=== PATIENT | male | born 1945 | race Caucasian/White ===

== ENCOUNTER → 2017-01-17 | Outpatient (CLI) | payer MEDICARE ==
[~2017-01-17] VITALS: Ht 180.3 cm; Wt 109.3 kg
[~2017-01-17] MED LIST: ASPI1TAB PO; LISI20TA PO; MULT1TAB10 PO; NS 1,000 ML IV ONE; PROPOFOL 200 MG/20 ML VIAL As Ordered ONE; SIMV20TA2 PO
--- NOTE | 2017-01-17 12:35 | ROOR ---
Patient Name: Juan Diaz Procedure Date: 01/17/2017 12:02 PM Date of : 1945 Age: 71 Room: [facility] Gender: Male Note Status: Finalized Procedure: Colonoscopy Indications: Screening for colorectal malignant neoplasm Providers: Jimy Pino Jr, MD Referring MD: Mari Aguirre NP Requesting Provider: Medicines: Propofol per Anesthesia Complications: No immediate complications. Procedure: Pre-Anesthesia Assessment: - Prior to the procedure, a History and Physical was performed, and patient medications and allergies were reviewed. The patient is competent. The risks and benefits of the procedure and the sedation options and risks were discussed with the patient. All questions were answered and informed consent was obtained. Patient identification and proposed procedure were verified by the physician and the nurse in the pre-procedure area and in the procedure room. Mental Status Examination: alert and oriented. Airway Examination: normal oropharyngeal airway and neck mobility. Respiratory Examination: clear to auscultation. CV Examination: normal. ASA Grade Assessment: II - A patient with mild systemic disease. After reviewing the risks and benefits, the patient was deemed in satisfactory condition to undergo the procedure. The anesthesia plan was to use moderate sedation / analgesia (conscious sedation). Immediately prior to administration of medications, the patient was re-assessed for adequacy to receive sedatives. The heart rate, respiratory rate, oxygen saturations, blood pressure, adequacy of pulmonary ventilation, and response to care were monitored throughout the procedure. The physical status of the patient was re-assessed after the procedure. The Colonoscope was introduced through the anus and advanced to the cecum, identified by appendiceal orifice and ileocecal valve. The colonoscopy was performed without difficulty. The patient tolerated the procedure well. The quality of the bowel preparation was adequate and good. Findings: The perianal and digital rectal examinations were normal. Pertinent negatives include normal sphincter tone, no palpable rectal lesions and no anal lesion or abnormality was detected. The rectum, recto-sigmoid colon, sigmoid colon, descending colon, transverse colon, ascending colon and ileocecal valve appeared normal. The sigmoid colon, descending colon, transverse colon and ascending colon revealed moderately excessive looping. Impression: - The rectum, recto-sigmoid colon, sigmoid colon, descending colon, transverse colon, ascending colon and ileocecal valve are normal. - There was significant looping of the colon. - No specimens collected. Recommendation: - Discharge patient to home (ambulatory). - Repeat colonoscopy in 10 years for screening purposes. Jimy Pino MD Jimy Pino Jr, MD 01/17/2017 12:34:53 PM This report has been signed electronically. Number of Addenda: 0 Note Initiated On: 01/17/2017 12:02 PM Estimated Blood Loss: Estimated blood loss: none.
[2017-01-17 12:55] VITALS: BP 157/86
== END | disposition home or self-care (01) ==
LOC: M OPP 10:49
PROVIDERS: ATTEND Surgery
DX: Z12.11 Encounter for screening for malignant neoplasm of colon (principal); Z86.010 Personal history of colon polyps; Q43.8 Other specified congenital malformations of intestine; I10 Essential (primary) hypertension; E78.00 Pure hypercholesterolemia, unspecified; R06.83 Snoring; Z79.82 Long term (current) use of aspirin; Z79.899 Other long term (current) drug therapy; Z88.5 Allergy status to narcotic agent

== ENCOUNTER → 2017-11-19 | Outpatient (REF) | payer MEDICARE ==
[2017-11-19 20:37] LABS: LIPASE 298 U/L (73-393)
[2017-11-19 20:37] LABS: AMYLASE 92 U/L (25-115)
== END ==
LOC: M LAB REF 19:04
DX: R10.11 Right upper quadrant pain (principal)
CPT/HCPCS: 82150

== ENCOUNTER 2017-12-08 15:53 | Inpatient (IN) | payer MEDICARE ==
[2017-12-08 17:22] LABS: BASO # 0.1 10^3/uL (0.0-0.2); BASO % 0.4 % (0.0-1.0); EOS # 0.1 10^3/uL (0.0-0.50); EOS % 0.5 % (0.0-3.0); HEMATOCRIT 44.3 % (42.0-52.0); HEMOGLOBIN 15.2 g/dl (13.5-17.5); IMMATURE GRANULOCYTE % 0.4 % (0-3.0); LYMPH % 8.1 % (24.0-44.0); MEAN CORPUSCULAR HEMOGLOBIN 31.7 pg (27.0-33.0); MEAN CORPUSCULAR HGB CONC 34.3 g/dl (32.0-36.5); MEAN CORPUSCULAR VOLUME 92.5 fl (80.0-96.0); MONO # 0.7 10^3/uL (0.0-0.8); NEUTROPHILS # 9.9 10^3/uL (1.8-7.7); NEUTROPHILS % 84.6 % (36.0-66.0); PLATELET COUNT, AUTOMATED 118 10^3/uL (150-450); RED BLOOD COUNT 4.79 10^6/uL (4.30-6.10); RED CELL DISTRIBUTION WIDTH 12.1 % (11.5-14.5); WHITE BLOOD COUNT 11.7 10^3/uL (4.0-10.0)
[2017-12-08 17:29] LABS: INR 1.05; PROTHROMBIN TIME 13.8 SECONDS (12.4-14.5)
[2017-12-08 17:36] LABS: ALBUMIN 3.8 GM/DL (3.2-5.2); ALBUMIN/GLOBULIN RATIO 1.19 (1.00-1.93); ALKALINE PHOSPHATASE 72 U/L (45-117); ALT/SGPT 36 U/L (12-78); ANION GAP 6 MEQ/L (8-16); AST/SGOT 22 U/L (7-37); BILIRUBIN,DIRECT 0.3 MG/DL (0.0-0.2); BILIRUBIN,TOTAL 1.5 MG/DL (0.2-1.0); BLOOD UREA NITROGEN 31 MG/DL (7-18); CALCIUM LEVEL 9.7 MG/DL (8.8-10.2); CARBON DIOXIDE LEVEL 26 MEQ/L (21-32); CHLORIDE LEVEL 111 MEQ/L (98-107); GLOMERULAR FILTRATION RATE > 60.0 (>42); GLUCOSE, FASTING 111 MG/DL (70-100); LIPASE 901 U/L (73-393); POTASSIUM SERUM 4.8 MEQ/L (3.5-5.1); SODIUM LEVEL 143 MEQ/L (136-145)
[2017-12-08] MEDS: KETOROLAC 30 MG/ML VIAL (J1885) IV (18:58)
[2017-12-08 19:31] LABS: APPEARANCE, URINE CLEAR (CLEAR); BACTERIA, URINE AUTO NEGATIVE (NEGATIVE); BILIRUBIN, URINE AUTO NEGATIVE (NEGATIVE); BLOOD, URINE BLOOD NEGATIVE (NEGATIVE); COLOR, URINE YELLOW (YELLOW); GLUCOSE, URINE (UA) AUTO NEGATIVE (NEGATIVE); KETONE, URINE AUTO TRACE mg/dL (NEGATIVE); LEUKOCYTE ESTERASE, URINE AUTO NEGATIVE (NEGATIVE); MUCUS, URINE SMALL (NEGATIVE); NITRITE, URINE AUTO NEGATIVE (NEGATIVE); PROTEIN, URINE AUTO NEGATIVE (NEGATIVE); RBC, URINE AUTO 2 /HPF (0-3); SPECIFIC GRAVITY URINE AUTO 1.021 (1.002-1.035); SQUAMOUS EPITHELIAL CELL UR AU 0 /HPF (0-6); WBC, URINE AUTO 1 /HPF (0-3)
[2017-12-08] MEDS: PIPERACILLIN/TAZOBACTAM SOD 3.375 GM in D5W MINI-BAG PLUS 50 ML IV (20:21)
[2017-12-08] MEDS: NS 1,000 ML IV ×2 (20:21→23:30)
[2017-12-08] MEDS ORDERED: PHENYLephrine HCL 500 MCG/5 ML (100MCG/ML) SYRINGE (J2370) As Ordered (21:13)
[2017-12-08] MEDS ORDERED: NEOSTIGMINE 10 MG/10 ML VIAL (J2710) As Ordered (21:13)
[2017-12-08] MEDS ORDERED: METOCLOPRAMIDE INJ 10MG/2ML VIAL (J2765) As Ordered (21:13)
[2017-12-08] MEDS ORDERED: LIDOCAINE 2% INJ 100 MG/5 ML SDV (FOR ANES.) As Ordered (21:13)
[2017-12-08] MEDS ORDERED: MIDAZOLAM INJ 2 MG/2 ML VIAL (J2250) As Ordered (21:13)
[2017-12-08] MEDS ORDERED: fentaNYL 100 MCG/2 ML INJECTION (J3010) As Ordered ×3 (21:13→22:17)
[2017-12-08] MEDS ORDERED: PROPOFOL 200 MG/20 ML VIAL As Ordered (21:13)
[2017-12-08] MEDS ORDERED: dexameTHASONE 4 MG/ML 1ML VIAL (J1100) As Ordered (21:13)
[2017-12-08] MEDS ORDERED: DESFLURANE 240 ML INHALANT As Ordered (21:13)
[2017-12-08] MEDS ORDERED: ONDANSETRON 4MG/2ML VIAL (J2405) As Ordered (21:13)
[2017-12-08] MEDS ORDERED: GLYCOPYRROLATE INJ 0.2 MG/ML 2 ML VIAL As Ordered (21:13)
[2017-12-08] MEDS ORDERED: SUCCINYLCHOLINE 100 MG/5 ML SYRINGE (J0330) As Ordered (21:13)
[2017-12-08] MEDS ORDERED: ROCURONIUM BROMIDE 50 MG/5 ML VIAL As Ordered (21:13)
[2017-12-08] MEDS: BUPIVACAINE/EPIN 0.5% 30 ML VIAL As Ordered (21:19)
[2017-12-08] MEDS: fentaNYL 100 MCG/2 ML INJECTION (J3010) IV ×4 (22:20→22:35)
[2017-12-08] MEDS ORDERED: PROMETHAZINE INJ 25 MG/ML VIAL (J2550) IV (22:30)
[2017-12-08] MEDS ORDERED: ONDANSETRON 4MG/2ML VIAL (J2405) IV ×2 (22:30→22:45)
[2017-12-08] MEDS ORDERED: METOCLOPRAMIDE INJ 10MG/2ML VIAL (J2765) IV (22:30)
[2017-12-08] MEDS ORDERED: KETOROLAC 30 MG/ML VIAL (J1885) IV (22:30)
[2017-12-08] MEDS ORDERED: MORPHINE 4 MG/ML 1ML VIAL/SYRINGE (J2270) IV ×2 (22:30)
[2017-12-08] MEDS ORDERED: PERCOCET 5MG/325MG TAB PO ×2 (22:30)
[2017-12-08] MEDS: MORPHINE 10 MG/ML 1ML VIAL (J2270) IV ×2 (22:40→22:45)
[2017-12-08] MEDS ORDERED: LR 1,000 ML IV (22:45)
[2017-12-08] MEDS ORDERED: NORCO, ANEXSIA 5/325MG TABLET (HYDROcodone/ACETAMINOPHEN) As Ordered (22:48)
[2017-12-08] MEDS: NORCO, ANEXSIA 5/325MG TABLET (HYDROcodone/ACETAMINOPHEN) PO (22:55)
[2017-12-09] MEDS: PIPERACILLIN/TAZOBACTAM SOD 3.375 GM in D5W MINI-BAG PLUS 50 ML IV ×2 (01:48→07:50)
[2017-12-09] MEDS ORDERED: AUGMENTIN 500 MG TAB PO ×2 (09:00→21:00)
[2017-12-09] MEDS: SENOKOT S TAB PO (09:30)
[2017-12-09] MEDS: NS 1,000 ML IV (09:30)
[2017-12-09] MEDS: PANTOPRAZOLE 40MG INJ (PROTONIX) (C9113) IV (09:30)
[2017-12-13] MEDS ORDERED: IBUPROFEN 600 MG TAB PO (22:30)
== END 2017-12-09 12:20 | disposition home or self-care (01) | DRG 343 ==
LOC: M PED 23:25 → M OR 23:25 → M ED 15:53 → M RR INP 22:18 → M ED 20:35 → M PED 23:25 → M ED 20:35 → M SDC 20:00 → M OR 22:18
PROC: 0DBJ4ZZ Excision of Appendix, Percutaneous Endoscopic Approach (ICD-10-PCS; principal; 2017-12-08 20:19)
DX: K37 Unspecified appendicitis (principal); E78.00 Pure hypercholesterolemia, unspecified; I10 Essential (primary) hypertension

== ENCOUNTER 2018-11-01 18:38 | Emergency (ER) | payer MEDICARE ==
[~2018-11-01] VITALS: Ht 180.3 cm; Wt 115.2 kg
[~2018-11-01 18:38] MED LIST changes: +AMOX500T2 PO; -ASPI1TAB PO; +ASPI81TA26 PO; +IBUP-1022 PO; -NS 1,000 ML IV ONE; +PERCOCET PO; -PROPOFOL 200 MG/20 ML VIAL As Ordered ONE; +VITMTA PO
[2018-11-01 18:59] LABS: BASO % 0.3 % (0.0-1.0); EOS % 0.1 % (0.0-3.0); HEMATOCRIT 45.8 % (42.0-52.0); HEMOGLOBIN 15.8 g/dl (13.5-17.5); LYMPH # 0.6 10^3/uL (1.5-4.5); LYMPH % 4.8 % (24.0-44.0); MEAN CORPUSCULAR HEMOGLOBIN 32.4 pg (27.0-33.0); MEAN CORPUSCULAR HGB CONC 34.5 g/dl (32.0-36.5); MONO # 0.3 10^3/uL (0.0-0.8); MONO % 2.3 % (0.0-5.0); NEUTROPHILS # 11.2 10^3/uL (1.8-7.7); NEUTROPHILS % 91.9 % (36.0-66.0); PLATELET COUNT, AUTOMATED 141 10^3/uL (150-450); RED BLOOD COUNT 4.87 10^6/uL (4.30-6.10); WHITE BLOOD COUNT 12.2 10^3/uL (4.0-10.0)
[2018-11-01] MEDS ORDERED: hydrALAZINE INJ 20 MG/ML VIAL As Ordered ONE (19:08)
[2018-11-01 19:10] VITALS: BP 211/100
--- NOTE | 2018-11-01 19:10 | REPVR ---
EXAM: CT Head Without Contrast EXAM DATE/TIME: 11/01/2018 6:45 PM CLINICAL HISTORY: 73 years old, male; Injury or trauma and signs and symptoms; Injury history: Unknown; Initial encounter; Blunt trauma (contusions or hematomas); Other: R/ o CVA; Additional info: R/O CVA TECHNIQUE: Imaging protocol: Axial computed tomography images of the head/brain without contrast. Radiation optimization: All CT scans at this facility use at least one of these dose optimization techniques: automated exposure control; mA and/or kV adjustment per patient size (includes targeted exams where dose is matched to clinical indication); or iterative reconstruction. COMPARISON: No relevant prior studies available. FINDINGS: Brain: There is an acute right basal ganglia hemorrhage measuring 4.2 x 1.8 cm. This is within the right putamen. There is a rim of surrounding edema. There is no midline shift. There is white matter lucency indicating chronic microvascular disease. No acute infarct. Ventricles: Normal. No ventriculomegaly. Bones/joints: Unremarkable. No acute fracture. Sinuses: Visualized sinuses are unremarkable. No acute sinusitis. Mastoid air cells: Visualized mastoid air cells are unremarkable. No mastoid effusion. Soft tissues: Unremarkable. Vasculature: There are carotid artery calcifications. IMPRESSION: 4.2 x 1.8 cm acute right ganglia hemorrhage. Electronically signed by: Roni Masterson On 11/01/2018 19:10:23 PM
[2018-11-01] MEDS ORDERED: hydrALAZINE INJ 20 MG/ML VIAL IV ONE (19:15)
[2018-11-01] MEDS ORDERED: niCARdipine IV 40 MG in APPROPRIATE DILUENT 1 EA IV SCH (19:30)
--- NOTE | 2018-11-01 19:32 | REPVR ---
EXAM: CT Cervical Spine Without Contrast EXAM DATE/TIME: 11/01/2018 6:45 PM CLINICAL HISTORY: 73 years old, male; Injury or trauma; Fall; Initial encounter; Blunt trauma TECHNIQUE: Imaging protocol: Axial computed tomography images of the cervical spine without intravenous contrast. Coronal and sagittal reformatted images were created and reviewed. Radiation optimization: All CT scans at this facility use at least one of these dose optimization techniques: automated exposure control; mA and/or kV adjustment per patient size (includes targeted exams where dose is matched to clinical indication); or iterative reconstruction. COMPARISON: No relevant prior studies available. FINDINGS: Vertebrae: There is no fracture. Vertebral alignment is normal. Discs/Spinal canal/Neural foramina: There is multilevel spondylosis and disc space narrowing throughout the cervical spine. There are posterior osteophytes and disc bulges resulting in mild segmental central spinal stenosis from C3-C4 to C6-C7. There is multilevel foraminal stenosis at the same levels. Soft tissues: Unremarkable. Lungs: Lung apices are normal. IMPRESSION: 1. No fracture. 2. Degenerative changes with segmental central spinal stenosis and foraminal stenosis from C3-C4 to C6-C7. Electronically signed by: Roni Masterson On 11/01/2018 19:31:46 PM
[2018-11-01 19:34] LABS: BLOOD UREA NITROGEN 24 MG/DL (7-18); CALCIUM LEVEL 9.6 MG/DL (8.8-10.2); CARBON DIOXIDE LEVEL 27 MEQ/L (21-32); CHLORIDE LEVEL 108 MEQ/L (98-107); CPK CREATINE PHOSPHOKINASE 162 U/L (39-308); CREATININE FOR GFR 1.11 MG/DL (0.70-1.30); GLOMERULAR FILTRATION RATE > 60.0 (>42); GLUCOSE, FASTING 159 MG/DL (70-100); MB/CK RELATIVE INDEX 2.16 (< OR =4); POTASSIUM SERUM 4.3 MEQ/L (3.5-5.1); SODIUM LEVEL 143 MEQ/L (136-145); TROPONIN I 0.03 NG/ML (< 0.10)
[2018-11-01 20:00] LABS: INR 1.1; PROTHROMBIN TIME 14.3 SECONDS (12.1-14.4)
[2018-11-01 20:01] LABS: PARTIAL THROMBOPLASTIN TIME 28.1 SECONDS (25.4-37.6)
[2018-11-01 20:05] VITALS: BP 197/86
--- NOTE | 2018-11-02 07:24 | ECGEPIP ---
Stationary ECG Study [facility] - ED Test Date: 2018-11-01 Pat Name: SONU SIM Department: Room: - Gender: M [employer] Management Consultant: SULMA : 1945 Requested By: JOSI Vela Order Number: [id number] Reading MD: Bertin Nguyen Measurements Intervals [place] Rate: 73 P: 51 PA: 162 QRS: -21 QRSD: 90 T: 74 QT: 383 QTc: 425 Interpretive Statements SINUS RHYTHM WITH OCCASIONAL SUPRAVENTRICULAR PREMATURE COMPLEXES BASELINE ARTIFACT AFFECTS INTERPRETATION POOR R WAVE PROGRESSION BORDERLINE LEFT AXIS DEVIATION NONSPECIFIC T-WAVE ABNORMALITY SIMILAR TO 12/08/17 Electronically Signed On 11-02-2018 7:23:47 EDT by Bertin Nguyen
--- NOTE | 2018-11-02 07:32 | REP ---
Portable chest x-ray: Single view. Comparison study April 21, 2008. History: CVA. Findings: EKG monitoring electrodes overlie the chest. The lungs are symmetrically aerated and free of infiltrate. The left lateral pleural angle is excluded from the field of view but there is no evidence of pleural effusion. Pulmonary vasculature is not increased. Heart is not enlarged. Impression: No acute disease. Electronically Signed by Fidel Rahman MD 11/02/2018 07:56 A
== END 2018-11-01 20:13 | disposition short-term general hospital (02) ==
LOC: M ED 18:38 → EDBD 18:38 → M ED 20:13
DX: I61.0 Nontraumatic intracerebral hemorrhage in hemisphere, subcortical (principal); I10 Essential (primary) hypertension; E78.5 Hyperlipidemia, unspecified; M48.02 Spinal stenosis, cervical region; Z79.899 Other long term (current) drug therapy; Z88.5 Allergy status to narcotic agent

== ENCOUNTER 2018-11-05 12:24 | Inpatient (IN) | payer MEDICARE ==
[~2018-11-05] VITALS: Ht 167.6 cm; Wt 107.2 kg
--- NOTE | 2018-11-05 14:12 | HPEPDOC ---
Storage Facility Rental Clerk Note DATE OF ADMISSION: SOURCE OF ADMISSION INFORMATION: patient, [facility], and [facility] records CHIEF COMPLAINT:hemorrhagic stroke HISTORY OF PRESENT ILLNESS: 73M pmh HTN, HLD who on 11/01/18 with sudden onset of dysarthria and left sided facial droop and weakness, who took a total of 1.3 grams of ASA then proceeded to fall and hit his head and was brought to [facility] ED where presented to [facility] ED where CTH showed, 4.2 x 1.8 cm acute right ganglia hemorrhage. Cervical spine CT was also performed given fall and head trauma showing, Degenerative changes with segmental central spinal stenosis and foraminal stenosis from C3-C4 to C6-C7. He was started on a Nicardipine drip for hypertensive emergency and transferred to [facility] to be treated on the Neuro-ICU where the drip was discontinued and he was palced on oral medications. CTA Head 11/02/18 showed, Minimal interval increase in size of hemorrhage within the right basal ganglia currently measuring up to 4.8 cm, previously measuring 4/6 cm. Associated with surrounding edema and mild mass effect on the adjacent brain parenchyma and right lateral ventricle. No midline shiftNo new intracranial hemorrhage or evidence of acute infarctionMajor intracranial arteries and arteries of the neck are patent. He was instructed to stop taking aspirin and follow-up with a urologist for his incontinence. He was evaluated by APPLICATION SECURITY CONSULTANT found to have significant dysphagia and also found to have deficits in ADLs and gait in OT/PT. He was deemed medically appropriate for discharge to ARU on 11/05/18. REVIEW OF SYSTEMS: The following is a completed review of systems and has been reviewed. Review of systems otherwise unremarkable. PAIN: Patient self reports no pain EYES: Negative for vision changes EARS, NOSE, & THROAT:+dysphagia CARDIOVASCULAR: denies chest pain or palpitations PULMONARY: Negative. Denies shortness of breath GASTROINTESTINAL: Negative for diarrhea/constipation GENITOURINARY: Negative for dysuria, + incontinence MUSCULOSKELETAL:+ lumbar stenosis NEUROLOGICAL: +dysarthria, dysphagia, left sided hemiplegia HEMATOLOGICAL: Negative SKIN: no rash PSYCHIATRIC: Unremarkable All other review of systems found to be negative. PAST MEDICAL HISTORY: as per HPI PAST SURGICAL HISTORY: Lumbar surgery for herniated disc, knee arthroscopy ALLERGIES: Please see below. MEDICATIONS: Please see below. 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 GENERAL: Pleasant and cooperative. No acute distress. HEENT: PERRL. Extraocular movements intact. Clear conjunctiva, left sided facial droop CARDIOVASCULAR: Regular rate and rhythm. No murmurs, rubs, or gallops LUNGS: Clear to auscultation bilaterally. No wheezes. No rhonchi ABDOMEN: Soft, nontender, nondistended. Positive bowel sounds. Normal active bowel sounds NEUROLOGICAL: Alert and oriented times three. Cranial nerves II through XII grossly intact except CN VII, Sensation grossly intact except extinction to touch in the RUE EXTREMITIES: 5\5 strength left upper extremities. 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 4/5 strength in left lower extremity. SKIN: intact IMAGING: Imaging documentation personally reviewed by record FUNCTIONAL STATUS: Premorbid: Independent with all activities of daily life as well as mobility On Admission: Requiring a lot of assistance with ambulating and stairs, requiring a lot of assistance with bed mobility, a little assistance with toileting, and a lot of assistance with dressing. GOALS: Supervision with ambulation with RW and stairs, Mod-I with upper body dressing, min-assist with lower body dressing, Mod- I with toileting, supervision with bathing, advance diet, medical optimization, assess for DME needs. ASSESSMENT:73-year-old M with past medical history of HTN, HLD, and low back pain who presents status post hemorrhagic stroke. PLAN: 1. Rehab: OT, PT, APPLICATION SECURITY CONSULTANT for dysphagia- will downgrade liquids to nectar until seen by our therapists and order MBS for tomorrow- c/u puree for now 2. Neuro: s/p right basal ganglia hemorrhagic stroke 11/01/18 with elevated BPs, continue BP meds, avoid aspirin- c/u statin therapy -patient with significant left sided paresis, will require extensive therapy -will start FLuoxetine for motor recovery 3. CArdio: pmh HTN and HLD- c/u statin and Lisinopril- and HCTZ- will consult medicine -per [facility] records ECHO ordered, however unable to view report in their EMR, will f/u on these results 4. Pain: Tylenopl prn 5. : f/u admission Ua and Ucx, monitor PVRs- needs f/u outpatient urology for incontinence 6. GI ppx: will start protonix 7. DVT ppx: will hold heparin for now, use TEDs and get serial doppler 8. Skin: Balmex to sacrum, turn q2h in bed 9. Dispo: TBD POST ADMISSION PHYSICIAN EVALUATION: Medical and functional status: Description of medical status, medical assessment: As above. Rehabilitation diagnosis and current and prior cold morbid medical conditions as above. Risk of complications and plans to mitigate them as above. Description of functional status current status is as above. Prior status as above. Status compared to preadmission: There are no clinically significant differences between the patient's current status and the information described on the preadmission screening document. Treatment plan anticipated: Treatment plan is as described above. Required disciplines including physical therapy, occupational therapy, others as noted above Intensity of services: 3 hours a day, 6 days a week. Special considerations: There are no specific special or safety considerations that would likely preclude immediate implementation of an intensive rehabilitation program or subsequently influence the plan of care. ATTESTATION: Considering all the information above, it is my best judgment that this patient requires intensive rehabilitation therapy as described above and an inpatient hospital environment due to the complexity of nursing, medical, and rehabilitation needs required by the patient. Furthermore, this patient can reasonably be expected to participate in an benefit from an inpatient rehabilitation stay with an interdisciplinary team approach to the delivery of rehabilitation care under the direction and supervision of rehabilitation physician PROGNOSIS: Good ESTIMATED LENGTH OF STAY: 18-21 days. PROJECTED DISCHARGE DESTINATION: Home with family support and any durable medical equipment required to increase functional safety and mobility. TIME SPENT COUNSELING AND COORDINATING INITIAL CARE: Greater than 70 minutes. Vital Signs Vital Signs Date Time Temp Pulse Resp B/P (MAP) Pulse Ox O2 Delivery O2 Flow Rate FiO2 11/05/18 14:30 96.9 49 18 100/79 (86) 96 Home Medications Scheduled Docusate Sodium (Colace) 100 Mg Capsule, 100 MG PO BID, (Reported) Hydrochlorothiazide (Hydrochlorothiazide) 50 Mg Tablet, 50 MG PO DAILY, (Reported) DOSE INCREASED AT [facility] Lisinopril (Lisinopril) 20 Mg Tablet, 20 MG PO BID, (Reported) INCREASE DOSE AT [facility] Simvastatin (Simvastatin) 20 Mg Tab, 20 TAB PO QHS, (Reported) Scheduled PRN Acetaminophen (Acetaminophen) 325 Mg Tablet, 650 MG PO Q4H PRN for PAIN, (Reported) Allergies Coded Allergies: codeine (Verified Adverse Reaction, Unknown, nausea, 11/01/18) ADDISON URRUTIA MD Nov 05, 2018 14:12
[2018-11-05] MEDS ORDERED: MAALOX 30 ML SUSP *UDC PO PRN (14:15)
[2018-11-05] MEDS ORDERED: traZODone 25MG PER 1/2 TABLET PO PRN (14:15)
[2018-11-05] MEDS ORDERED: MOM 30ML SUSPENSION UDC PO PRN (14:15)
[2018-11-05] MEDS ORDERED: BISACODYL 10 MG SUPP PR PRN (14:15)
[2018-11-05 14:30] VITALS: BP 100/79
[2018-11-05] MEDS ORDERED: COLA100C5 PO (14:46)
[2018-11-05] MEDS ORDERED: APAP325T4 PO (14:46)
[2018-11-05] MEDS ORDERED: HYDR50TAB PO (14:46)
[2018-11-05] MEDS ORDERED: LISI-538 PO (14:46)
[2018-11-05] MEDS: PANTOPRAZOLE 40MG TAB (PROTONIX) PO SCH (16:35)
[2018-11-05] MEDS: FLUoxetine 20 MG CAP PO SCH (16:35)
--- NOTE | 2018-11-05 18:02 | REP ---
Duplex extremity venous ultrasound: Bilateral lower extremity. History: Immobility. Question DVT. Findings: The deep veins are anechoic and fully compressible from the groin to the popliteal fossa in the left and right lower extremity. Color flow imaging is homogeneous. Spectral Doppler interrogation demonstrates intact respiratory variation in flow and normal manual augmentation of flow. There is no evidence of deep vein thrombosis. Impression: Negative bilateral lower extremity duplex venous ultrasound. No evidence of deep vein thrombosis. Electronically Signed by Fidel Rahman MD 11/05/2018 05:53 P
[2018-11-05 20:00] VITALS: BP 129/63
[2018-11-05] MEDS: SIMVASTATIN 20 MG TAB PO SCH (20:29)
[2018-11-05] MEDS: LISINOPRIL 20 MG TAB PO SCH (20:29)
[2018-11-05] MEDS: DOCUSATE SODIUM 100 MG CAP PO SCH (20:29)
[2018-11-05] MEDS: BISACODYL 5 MG TAB PO SCH (20:29)
[2018-11-05] MEDS ORDERED: ENTER DRUG NAME HERE (PATIENT'S OWN MED) XX SCH (21:00)
[2018-11-05] MEDS ORDERED: LOTRISONE CREAM 15 GM (BETAMETH/CLOTRIMAZOLE) TOP SCH (21:00)
[2018-11-06 05:42] LABS: APPEARANCE, URINE CLEAR (CLEAR); BACTERIA, URINE AUTO NEGATIVE (NEGATIVE); BILIRUBIN, URINE AUTO NEGATIVE (NEGATIVE); BLOOD, URINE BLOOD NEGATIVE (NEGATIVE); COLOR, URINE YELLOW (YELLOW); GLUCOSE, URINE (UA) AUTO NEGATIVE (NEGATIVE); KETONE, URINE AUTO NEGATIVE (NEGATIVE); LEUKOCYTE ESTERASE, URINE AUTO NEGATIVE (NEGATIVE); MUCUS, URINE SMALL (NEGATIVE); NITRITE, URINE AUTO NEGATIVE (NEGATIVE); PROTEIN, URINE AUTO NEGATIVE (NEGATIVE); RBC, URINE AUTO 0 /HPF (0-3); SPECIFIC GRAVITY URINE AUTO 1.015 (1.002-1.035); SQUAMOUS EPITHELIAL CELL UR AU 0 /HPF (0-6); WBC, URINE AUTO 1 /HPF (0-3)
[2018-11-06 06:00] VITALS: BP 126/75
--- NOTE | 2018-11-06 06:22 | CR.PDOC ---
General Date of Consultation: Nov 05, 2018 Referring Provider: GIULIA SCHULTZ MD Attending Physician: ADDISON URRUTIA MD Consultation REASON FOR CONSULTATION/CHIEF COMPLAINT: . Management of medical comorbidities HISTORY OF PRESENT ILLNESS: . 73-year-old male with past medical history of hypertension, dyslipidemia, and recent hemorrhagic right basal ganglia CVA with sudden onset of dysarthria, l eft-sided facial droop, and left upper and left lower extremity weakness. This was diagnosed on 11/01/18 here at [facility]. The patient was subsequently transferred to [facility] for further medical management. At this time, the patient has been transferred back to the acute rehabilitation unit for further functional optimization. The hospitalist service has been consulted for management of the patient's medical comorbidities. At this time, the patient denies any acute complaints of fevers, chills, chest pain, palpitations, abdominal pain, or any nausea/vomiting/diarrhea. ALLERGIES: Please see below. HOME MEDICATIONS: Please see below. PAST MEDICAL HISTORY: As noted above PAST SURGICAL HISTORY: History of back surgery in 2007, history of appendectomy SOCIAL HISTORY: Denies tobacco, alcohol, illicit drug use REVIEW OF SYSTEMS: 10 point review of systems negative unless otherwise specified in HPI. PHYSICAL EXAMINATION: VITAL SIGNS: Please see below. GENERAL APPEARANCE: . Awake, Alert, Oriented x 3 HEENT: . Normocephalic, atraumatic RESPIRATORY: . Clear to auscultation bilaterally CARDIOVASCULAR: . Normal rate, normal S1, S2 ABDOMEN: . Soft, nontender, nondistended EXTREMITIES: . No erythema, no tenderness NEUROLOGICAL: . 5/5 strength in right upper and right lower extremity as well as left lower extremity. 4/5 strength in left upper extremity. LUE ataxia. Left- sided facial droop noted. LABORATORY DATA: Please see below. ASSESSMENT/PLAN: Recent Hx of Hemorrhagic Right Basal Ganglia Infarct s/p Medical Management and stabilization at [facility] Cont Statin Avoid antiplatelets, AC Functional optimization as per ARU Corporate Driver/PT/OT Hypertension Cont Lisinopril, HCTZ Dyslipidemia Cont Statin Anxiety/Depression Cont Trazodone, Fluoxetine GERD Cont PPI DVT Prophylaxis SCDs/TEDs Vital Signs/I&O Vital Signs Date Time Temp Pulse Resp B/P (MAP) Pulse Ox O2 Delivery O2 Flow Rate FiO2 11/06/18 06:00 98.4 74 18 126/75 (92) 94 I&O- Last 24 Hours up to 6 AM 11/06/18 06:00 Intake Total 600 ml Output Total 1075 ml Balance -475 ml Laboratory Data Labs 24H Laboratory Tests 2 11/06/18 05:20: Urine Appearance CLEAR, Urine Color YELLOW, Urine pH 5.0, Urine Specific [place] 1.015, Urine Protein NEGATIVE, Urine Glucose (UA) NEGATIVE, Urine Ketones NEGATIVE, Urine Urobilinogen 2.0H, Urine Bilirubin NEGATIVE, Urine Leukocyte Esterase NEGATIVE, Urine Blood NEGATIVE, Urine Nitrite NEGATIVE, Urine WBC (Auto) 1, Urine RBC (Auto) 0, Urine Hyaline Casts (Auto) 0, Urine Bacteria (A uto) NEGATIVE, Urine Squamous Epithelial Cells 0, Urine Mucus (Auto) SMALL, Urine Sperm (Auto) Microbiology Microbiology 11/06/18 Urine Culture, Received Pending Allergies Coded Allergies: codeine (Verified Adverse Reaction, Unknown, nausea, 11/01/18) Home Medications Scheduled Docusate Sodium (Colace) 100 Mg Capsule, 100 MG PO BID, (Reported) Hydrochlorothiazide (Hydrochlorothiazide) 50 Mg Tablet, 50 MG PO DAILY, (Reported) DOSE INCREASED AT [facility] Lisinopril (Lisinopril) 20 Mg Tablet, 20 MG PO BID, (Reported) INCREASE DOSE AT [facility] Simvastatin (Simvastatin) 20 Mg Tab, 20 TAB PO QHS, (Reported) Scheduled PRN Acetaminophen (Acetaminophen) 325 Mg Tablet, 650 MG PO Q4H PRN for PAIN, (Reported) GIULIA SCHULTZ MD Nov 06, 2018 06:21
[2018-11-06 07:08] LABS: BASO # 0.1 10^3/uL (0.0-0.2); BASO % 0.7 % (0.0-1.0); EOS # 0.2 10^3/uL (0.0-0.50); EOS % 2.2 % (0.0-3.0); HEMATOCRIT 47.4 % (42.0-52.0); HEMOGLOBIN 16.2 g/dl (13.5-17.5); LYMPH # 2.1 10^3/uL (1.5-4.5); LYMPH % 20.7 % (24.0-44.0); MEAN CORPUSCULAR HEMOGLOBIN 32.6 pg (27.0-33.0); MEAN CORPUSCULAR HGB CONC 34.2 g/dl (32.0-36.5); MEAN CORPUSCULAR VOLUME 95.4 fl (80.0-96.0); MONO # 0.8 10^3/uL (0.0-0.8); MONO % 7.7 % (0.0-5.0); NEUTROPHILS # 6.8 10^3/uL (1.8-7.7); NEUTROPHILS % 67.8 % (36.0-66.0); PLATELET COUNT, AUTOMATED 166 10^3/uL (150-450); RED BLOOD COUNT 4.97 10^6/uL (4.30-6.10); WHITE BLOOD COUNT 10.1 10^3/uL (4.0-10.0)
[2018-11-06 07:31] LABS: ALBUMIN 3.6 GM/DL (3.2-5.2); BILIRUBIN,TOTAL 1.5 MG/DL (0.2-1.0); CALCIUM LEVEL 10.3 MG/DL (8.8-10.2); CREATININE FOR GFR 1.32 MG/DL (0.70-1.30); GLOMERULAR FILTRATION RATE 56.6 (>42); POTASSIUM SERUM 3.9 MEQ/L (3.5-5.1); TOTAL PROTEIN 7.2 GM/DL (6.4-8.2)
[2018-11-06] MEDS: DOCUSATE SODIUM 100 MG CAP PO SCH ×2 (08:37→20:05)
[2018-11-06] MEDS: PANTOPRAZOLE 40MG TAB (PROTONIX) PO SCH (08:37)
[2018-11-06] MEDS: FLUoxetine 20 MG CAP PO SCH (08:37)
[2018-11-06] MEDS: LISINOPRIL 20 MG TAB PO SCH ×2 (08:38→20:08)
[2018-11-06] MEDS ORDERED: hydroCHLOROthiazide 25 MG TAB PO SCH (09:00)
--- NOTE | 2018-11-06 11:01 | IPNPDOC ---
PM&R Progress Note DATE OF SERVICE: Nov 06, 2018 [employer] Progress Note Subjective: Patient seen sitting up and eating lunch states he feel tired because he did not sleep last night. REVIEW OF SYSTEMS: The following is a completed review of systems and has been reviewed. Review of systems otherwise unremarkable. PAIN: Patient self reports no pain EYES: Negative for vision changes EARS, NOSE, & THROAT:+dysphagia CARDIOVASCULAR: denies chest pain or palpitations PULMONARY: Negative. Denies shortness of breath GASTROINTESTINAL: Negative for diarrhea/constipation GENITOURINARY: Negative for dysuria, + incontinence MUSCULOSKELETAL:+ lumbar stenosis NEUROLOGICAL: +dysarthria, dysphagia, left sided hemiplegia HEMATOLOGICAL: Negative SKIN: no rash PSYCHIATRIC: Unremarkable All other review of systems found to be negative. PHYSICAL EXAMINATION: VITAL SIGNS: Please see below. GENERAL: Pleasant and cooperative. No acute distress. HEENT: PERRL. Extraocular movements intact. Clear conjunctiva, left sided facial droop CARDIOVASCULAR: Regular rate and rhythm. No murmurs, rubs, or gallops LUNGS: Clear to auscultation bilaterally. No wheezes. No rhonchi ABDOMEN: Soft, nontender, nondistended. Positive bowel sounds. Normal active b owel sounds NEUROLOGICAL: Alert and oriented times three. Cranial nerves II through XII grossly intact except CN VII, Sensation grossly intact except extinction to touch in the RUE EXTREMITIES: 5\5 strength left upper extremities. 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 4/5 strength in left lower extremity. SKIN: intact ASSESSMENT:73-year-old M with past medical history of HTN, HLD, and low back pain who presents status post hemorrhagic stroke. PLAN: 1. 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 CArdio: pmh HTN and HLD- c/u statin and Lisinopril- and HCTZ- will consult medicine -per [facility] records ECHO ordered, however unable to view report in their EMR, will f/u on these results 4. Pain: Tylenopl prn 5. : f/u admission Ua and Ucx, monitor PVRs- needs f/u outpatient urology for incontinence 6. GI ppx: will start protonix 7. DVT ppx: will hold heparin for now, use TEDs, admission Doppler negative for DVTs 8. Skin: Balmex to sacrum 9. Insomnia: Trazodone 25mg qHS 9. Dispo: TBD Allergies Coded Allergies: codeine (Verified Adverse Reaction, Unknown, nausea, 11/01/18) Vital Signs Vital Signs Date Time Temp Pulse Resp B/P (MAP) Pulse Ox O2 Delivery O2 Flow Rate FiO2 11/06/18 08:38 126/75 11/06/18 06:00 98.4 74 18 94 Laboratory Data CBC/BMP Laboratory Tests 11/06/18 06:36 Red Blood Count 4.97, Mean Corpuscular Volume 95.4, Mean Corpuscular Hemoglobin 32.6, Mean Corpuscular Hemoglobin Concent 34.2, Red Cell Distribution Width 12.1, Neutrophils (%) (Auto) 67.8 H, Lymphocytes (%) (Auto) 20.7 L, Monocytes (%) (Auto) 7.7 H, Eosinophils (%) (Auto) 2.2, Basophils (%) (Auto) 0.7, Vickie trophils # (Auto) 6.8, Lymphocytes # (Auto) 2.1, Monocytes # (Auto) 0.8, Eosinophils # (Auto) 0.2, Basophils # (Auto) 0.1, Calcium Level 10.3 H, Aspartate Amino Transf (AST/SGOT) 20, Alanine Aminotransferase (ALT/SGPT) 40, Alkaline Phosphatase 75, Total Bilirubin 1.5 H, Total Protein 7.2, Albumin 3.6 Labs 24H Laboratory Tests 2 11/06/18 05:20: Urine Appearance CLEAR, Urine Color YELLOW, Urine pH 5.0, Urine Specific [place] 1.015, Urine Protein NEGATIVE, Urine Glucose (UA) NEGATIVE, Urine Ketones NEGATIVE, Urine Urobilinogen 2.0H, Urine Bilirubin NEGATIVE, Urine Leukocyte Esterase NEGATIVE, Urine Blood NEGATIVE, Urine Nitrite NEGATIVE, Urine WBC (Auto ) 1, Urine RBC (Auto) 0, Urine Hyaline Casts (Auto) 0, Urine Bacteria (Auto) NEGATIVE, Urine Squamous Epithelial Cells 0, Urine Mucus (Auto) SMALL, Urine Sperm (Auto) 11/06/18 06:36: Immature Granulocyte % (Auto) 0.9, White Blood Count 10.1H, Red Blood Count 4.97, Hemoglobin 16.2, Hematocrit 47.4, Mean Corpuscular Volume 95.4, Mean Corpuscular Hemoglobin 32.6, Mean Corpuscular Hemoglobin Concent 34.2, Red Cell Distribution Width 12.1, Platelet Count 166, Neutrophils (%) (Auto) 67.8H, Lymphocytes (%) (Auto) 20.7L, Monocytes (%) (Auto) 7.7H, Eosinophils (%) (Auto) 2.2, Basophils (%) (Auto) 0.7, Neutrophils # (Auto) 6.8, Lymphocytes # (Auto) 2.1, Monocytes # (Auto) 0.8, Eosinophils # (Auto) 0.2, Basophils # (Auto) 0.1, Nucleated Red Blood Cells % (auto) 0.0, Anion Gap 7L, Glomerular Filtration Rate 56.6, Blood Urea Nitrogen 26H, Creatinine 1.32H, Sodium Level 142, Potassium Level 3.9, Chloride Level 107, Carbon Dioxide Level 28, Calcium Level 10.3H, Aspartate Amino Transf (AST/SGOT) 20, Alanine Aminotransferase (ALT/SGPT) 40, Alkaline Phosphatase 75, Total Bilirubin 1.5H, Total Protein 7.2, Albumin 3.6, Albumin/Globulin Ratio 1.00 Microbiology Microbiology 11/06/18 Urine Culture, Received Pending Current Medications Current Medications Current Medications Acetaminophen (Tylenol Tab) 650 mg Q4HP PRN PO fever/MILD PAIN (PS 1-4); Start 11/05/18 at 14:15 Al Hydrox/Mg Hydrox/Simethicone (Mylanta) 30 ml Q4HP PRN PO DYSPEPSIA; Start 11/05/18 at 14:15 Betamethasone/ Clotrimazole (Lotrisone Cream) TO LEFT UPPER EAR QHS TOP ; Start 11/05/18 at 21:00; Stop 11/05/18 at 21:00; Status DC Bisacodyl (Dulcolax Suppository) [address] CONSTIPATION; Start 11/05/18 at 14:15 Bisacodyl (Dulcolax Tab) 5 mg QHS PO Last administered on 4/17/19at 20:29; Start 11/05/18 at 21:00 Docusate Sodium (Colace) 100 mg BID PO Last administered on 11/06/18 08:37; Start 11/05/18 at 21:00 Fluoxetine HCl (PROzac) 20 mg DAILY PO Last administered on 11/06/18 08:37; Start 11/05/18 at 15:00 Home Med (Med Rec Complete!) ASDIRECTED XX ; Start 11/05/18 at 15:00; Stop 11/05/18 at 15:01; Status DC Hydrochlorothiazide (Hydrodiuril) 50 mg DAILY PO Last administered on 11/06/18at 08:37; Start 11/06/18 at 09:00 Lisinopril (Prinivil) 20 mg BID PO Last administered on 11/06/18at 08:38; Start 11/05/18 at 21:00 Magnesium Hydroxide (Milk Of Magnesia) 30 ml DAILYPRN PRN PO CONSTIPATION; Start 11/05/18 at 14:15 Pantoprazole Sodium (Protonix) 40 mg DAILY PO Last administered on 11/06/18at 08:37; Start 11/05/18 at 15:00 Patient Own Medication (Patient'S Own Med) clotrimazole betamethasone 0.05% ap... QHS XX ; Start 11/05/18 at 21:00; Stop 11/05/18 at 21:00; Status DC Simvastatin (Zocor) 20 mg QHS PO Last administered on 11/05/18at 20:29; Start 11/05/18 at 21:00 Trazodone HCl (Desyrel) 25 mg QHSP PRN PO INSOMNIA; Start 11/05/18 at 14:15 ADDISON URRUTIA MD Nov 06, 2018 11:01
[2018-11-06] MEDS ORDERED: VARIBAR NECTAR 40% w/v 240ML SUSP BTL As Ordered ONE (12:38)
[2018-11-06] MEDS ORDERED: VARIBAR PUDDING 40% w/v 230ML TUBE As Ordered ONE (12:38)
[2018-11-06] MEDS ORDERED: E-Z-PAQUE 96% w/w SUSP 176GM BTL As Ordered ONE (12:39)
--- NOTE | 2018-11-06 13:45 | IPNPDOC ---
Date Seen The patient was seen on 11/06/18. Progress Note SUBJECTIVE: 73-year-old male with past medical history of recent right basal ganglia CVA with residual left-sided weakness and facial droop, hypertension, hyperlipidemia his transfer back here from [facility] for medical management and rehabilitation. Interval history: Patient states that he feels fine. L. sided weakness is persistent, he noted no changes. Denies any significant pain or discomfort. OBJECTIVE PHYSICAL EXAMINATION: VITAL SIGNS: Please see below. General: No acute distress, Alert Eyes: Normal sclera, EOMI, RANDEE HENT: Atraumatic, neck supple, moist mucous membranes Cardiovascular: Normal rate, normal rhythm. No murmurs appreciated. Pulmonary: Clear to auscultation b/l, no wheezing GI: Soft, nontender, nondistended Skin: Warm and dry Neuro: CN grossly intact. L. sided facial droop. L. sided weakness, strength 3/5 in both L. upper and lower extremities. 5/5 in upper and lower right extremities. Sensation intact throughout. Psych: oriented x 3 LABORATORY DATA, IMAGING STUDIES, MICROBIOLOGY: Please see below. DVT prophylaxis ordered?: TEDs ASSESSMENT AND PLAN: 1. Recent R. Basal Ganglia hemorrhagic infarct - L. sided residual weakness. - continue statin, physical therapy. - Avoid anticoaguation and antiplatelets. - TEDs only for DVT ppx. 2. HTN - BP controlled. - C/w home meds lisinopril and HCTZ. 3. Anxiety/Depression - c/w home meds. - Appear to be in good spirit at this time. 4. HLD - c/w statin VS, I&O, 24H, Fishbone Vital Signs/I&O Vital Signs Date Time Temp Pulse Resp B/P (MAP) Pulse Ox O2 Delivery O2 Flow Rate FiO2 11/06/18 08:38 126/75 11/06/18 06:00 98.4 74 18 94 I&O- Last 24 Hours up to 6 AM 11/06/18 06:00 Intake Total 600 ml Output Total 1075 ml Balance -475 ml Laboratory Data 24H LABS Laboratory Tests 2 11/06/18 05:20: Urine Appearance CLEAR, Urine Color YELLOW, Urine pH 5.0, Urine Specific [place] 1.015, Urine Protein NEGATIVE, Urine Glucose (UA) NEGATIVE, Urine Ketones NEGATIVE, Urine Urobilinogen 2.0H, Urine Bilirubin NEGATIVE, Urine Leukocyte Esterase NEGATIVE, Urine Blood NEGATIVE, Urine Nitrite NEGATIVE, Urine WBC (Auto) 1, Urine RBC (Auto) 0, Urine Hyaline Casts (Auto) 0, Urine Bacteria (Auto) NEGATIVE, Urine Squamous Epithelial Cells 0, Urine Mucus (Auto) SMALL, Urine Sperm (Auto) 11/06/18 06:36: Immature Granulocyte % (Auto) 0.9, White Blood Count 10.1H, Red Blood Count 4.97, Hemoglobin 16.2, Hematocrit 47.4, Mean Corpuscular Volume 95.4, Mean Corpuscular Hemoglobin 32.6, Mean Corpuscular Hemoglobin Concent 34.2, Red Cell Distribution Width 12.1, Platelet Count 166, Neutrophils (%) (Auto) 67.8H, Lymphocytes (%) (Auto) 20.7L, Monocytes (%) (Auto) 7.7H, Eosinophils (%) (Auto) 2.2, Basophils (%) (Auto) 0.7, Neutrophils # (Auto) 6.8, Lymphocytes # (Auto) 2.1, Monocytes # (Auto) 0.8, Eosinophils # (Auto) 0.2, Basophils # (Auto) 0.1, Nucleated Red Blood Cells % (auto) 0.0, Anion Gap 7L, Glomerular Filtration Rate 56.6, Blood Urea Nitrogen 26H, Creatinine 1.32H, Sodium Level 142, Potassium Level 3.9, Chloride Level 107, Carbon Dioxide Level 28, Calcium Level 10.3H, Aspartate Amino Transf (AST/SGOT) 20, Alanine Aminotransferase (ALT/SGPT) 40, Alkaline Phosphatase 75, Total Bilirubin 1.5H, Total Protein 7.2, Albumin 3.6, Albumin/Globulin Ratio 1.00 CBC/BMP Laboratory Tests 11/06/18 06:36 Red Blood Count 4.97, Mean Corpuscular Volume 95.4, Mean Corpuscular Hemoglobin 32.6, Mean Corpuscular Hemoglobin Concent 34.2, Red Cell Distribution Width 12.1, Neutrophils (%) (Auto) 67.8 H, Lymphocytes (%) (Auto) 20.7 L, Monocytes (%) (Auto) 7.7 H, Eosinophils (%) (Auto) 2.2, Basophils (%) (Auto) 0.7, Neutrophils # (Auto) 6.8, Lymphocytes # (Auto) 2.1, Monocytes # (Auto) 0.8, Eosinophils # (Auto) 0.2, Basophils # (Auto) 0.1, Calcium Level 10.3 H, Aspartate Amino Transf (AST/SGOT) 20, Alanine Aminotransferase (ALT/SGPT) 40, Alkaline Phosphatase 75, Total Bilirubin 1.5 H, Total Protein 7.2, Albumin 3.6 Microbiology Microbiology 11/06/18 Urine Culture, Received Pending NATANAEL WESTON MD Nov 06, 2018 13:45
[2018-11-06 14:00] VITALS: BP 130/60
--- NOTE | 2018-11-06 15:23 | NUR ---
Pt seen for Modified Barium Swallow Study to determine safest/least restrictive diet. Pt presents with a left facial droop. Recommend: Puree solids and thin liquids. No Straws. Continue with dysphagia therapy to address oral weakness and likely decreased sensation with trials of full meals at higher consistencies for possible upgrade. Therapy to address safe feeding strategies. Addendum: 11/06/18 at 1524 by PATSY VELASQUEZ SP Amended: Links added.
--- NOTE | 2018-11-06 15:23 | NUR ---
Recommend pureed solids, thin liquids. Dysphagia tx to assess meal pacing w/ advanced level diet consistencies. Addendum: 11/06/18 at 1524 by FOSTER BARAHONA [facility] SP Amended: Links added.
--- NOTE | 2018-11-06 15:38 | NUR ---
Pt w/ moderate cognitive impairment. Evaluation impacted by extreme fatigue. Pt w/ poor sustained attention & impulsivity, decreased self-monitoring, minimal left-neglect. Recommend cognitive tx for functional problem-solving and sustained attention to maximize safe participation in ADL's. Addendum: 11/06/[address] SP Amended: Links added.
[2018-11-06] MEDS ORDERED: traZODone 25MG PER 1/2 TABLET PO PRN (16:45)
--- NOTE | 2018-11-06 17:18 | REP ---
COOKIE SWALLOW The procedure was performed under the direct supervision of Dr. Rahman. The procedure was performed with Lucy Jones from speech pathology present. 5 ml aliquots of thin, nectar, pudding, mixed fruit, soft food and solid consistency barium was administered. There is no evidence of penetration or aspiration. The detailed report of this examination will be provided by speech pathology. 1.7 minutes of fluoroscopy time was utilized for this procedure. Reviewed by LEWIS Diaz 11/06/2018 05:04 P Electronically Signed by Fidel Rahman MD 11/06/2018 05:10 P
[2018-11-06 20:00] VITALS: BP 145/71
[2018-11-06] MEDS: BISACODYL 5 MG TAB PO SCH (20:05)
[2018-11-06] MEDS: SIMVASTATIN 20 MG TAB PO SCH (20:05)
[2018-11-06] MEDS ORDERED: traZODone 25MG PER 1/2 TABLET PO SCH (21:00)
[2018-11-07 06:00] VITALS: BP 140/67
[2018-11-07 06:56] LABS: HEMATOCRIT 44.6 % (42.0-52.0); HEMOGLOBIN 15.2 g/dl (13.5-17.5); MEAN CORPUSCULAR HEMOGLOBIN 32.3 pg (27.0-33.0); MEAN CORPUSCULAR HGB CONC 34.1 g/dl (32.0-36.5); MEAN CORPUSCULAR VOLUME 94.7 fl (80.0-96.0); PLATELET COUNT, AUTOMATED 150 10^3/uL (150-450); RED BLOOD COUNT 4.71 10^6/uL (4.30-6.10); WHITE BLOOD COUNT 10.1 10^3/uL (4.0-10.0)
[2018-11-07 07:12] LABS: CALCIUM LEVEL 9.5 MG/DL (8.8-10.2); CREATININE FOR GFR 2.02 MG/DL (0.70-1.30); GLOMERULAR FILTRATION RATE 34.6 (>42); POTASSIUM SERUM 3.8 MEQ/L (3.5-5.1)
[2018-11-07] MEDS: FLUoxetine 20 MG CAP PO SCH (09:01)
[2018-11-07] MEDS: DOCUSATE SODIUM 100 MG CAP PO SCH ×2 (09:01→20:51)
[2018-11-07] MEDS: PANTOPRAZOLE 40MG TAB (PROTONIX) PO SCH (09:01)
[2018-11-07] MEDS: amLODIPine 5 MG TAB PO SCH (09:03)
--- NOTE | 2018-11-07 09:25 | NUR ---
Recommend please upgrade to level 2 mechanically altered (NDD) solids, continue thin liquids, OOB for meal w/ set-up assistance as needed. Addendum: 11/07/18 at [address] [facility] SP Amended: Links added.
[2018-11-07] MEDS: NS 1,000 ML IV SCH ×2 (09:36→18:30)
--- NOTE | 2018-11-07 11:05 | IPNPDOC ---
PM&R Progress Note DATE OF SERVICE: Nov 07, 2018 Rn Neonatal Progress Note Subjective: Patient seen in room getting IVF reporting he did not sleep well again last night. REVIEW OF SYSTEMS: The following is a completed review of systems and has been reviewed. Review of systems otherwise unremarkable. PAIN: Patient self reports no pain EYES: Negative for vision changes EARS, NOSE, & THROAT:+dysphagia (improving) CARDIOVASCULAR: denies chest pain or palpitations PULMONARY: Negative. Denies shortness of breath GASTROINTESTINAL: Negative for diarrhea/constipation GENITOURINARY: Negative for dysuria, + incontinence MUSCULOSKELETAL:+ lumbar stenosis NEUROLOGICAL: +dysarthria, dysphagia, left sided hemiplegia HEMATOLOGICAL: Negative SKIN: no rash PSYCHIATRIC: Unremarkable All other review of systems found to be negative. PHYSICAL EXAMINATION: VITAL SIGNS: Please see below. GENERAL: Pleasant and cooperative. No acute distress. HEENT: PERRL. Extraocular movements intact. Clear conjunctiva, left sided facial droop CARDIOVASCULAR: Regular rate and rhythm. No murmurs, rubs, or gallops LUNGS: Clear to auscultation bilaterally. No wheezes. No rhonchi ABDOMEN: Soft, nontender, nondistended. Positive bowel sounds. Normal active bowel sounds NEUROLOGICAL: Alert and oriented times three. Cranial nerves II through XII grossly intact except CN VII, Sensation grossly intact except extinction to touch in the RUE EXTREMITIES: 5\5 strength left upper extremities. 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 4/5 strength in left lower extremity. SKIN: intact ASSESSMENT:73-year-old M with past medical history of HTN, HLD, and low back pain who presents status post hemorrhagic stroke. PLAN: 1. 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 CArdio: pmh HTN and HLD- c/u statin, BP meds changed to hydralazine to avoid kidney injury, s/p Lisinopril- and HCTZ- medicine recs appreciated -per [facility] records ECHO ordered, however unable to view report in their EMR, will f/u on these results 4. Pain: Tylenopl prn 5. : admission Ua and Ucx negative, monitor PVRs- needs f/u outpatient urology for incontinence 6. GI ppx: will start protonix 7. DVT ppx: will hold heparin for now, use TEDs, admission Doppler negative for DVTs 8. Skin: Balmex to sacrum 9. Insomnia: will increase Trazodone to 50mg qHS, and 25mg prn if first dose does not work 10. Renal: DARRIAN Box Icer today 2.02 getting IVF per medicine, likely due to decrease oral intake from dysphagia diet, however back on thins so should resolve 9. Dispo: TBD Allergies Coded Allergies: codeine (Verified Adverse Reaction, Unknown, nausea, 11/01/18) Vital Signs Vital Signs Date Time Temp Pulse Resp B/P (MAP) Pulse Ox O2 Delivery O2 Flow Rate FiO2 11/07/18 09:03 75 128/73 11/07/18 06:00 97.1 18 97 Laboratory Data CBC/BMP Laboratory Tests 11/07/18 06:23 Red Blood Count 4.71, Mean Corpuscular Volume 94.7, Mean Corpuscular Hemoglobin 32.3, Mean Corpuscular Hemoglobin Concent 34.1, Red Cell Distribution Width 12.1, Calcium Level 9.5 Labs 24H Laboratory Tests 2 11/07/18 06:23: Nucleated Red Blood Cells % (auto) 0.0, Anion Gap 7L, Glomerular Filtration Rate 34.6L, Blood Urea Nitrogen 46#H, Creatinine 2.02#H, Sodium Level 141, Potassium Level 3.8, Chloride Level 108H, Carbon Dioxide Level 26, Calcium Level 9.5 Microbiology Microbiology 11/06/18 Urine Culture - Final, Complete Current Medications Current Medications Current Medications Acetaminophen (Tylenol Tab) 650 mg Q4HP PRN PO fever/MILD PAIN (PS 1-4); Start 11/05/18 at 14:15 Al Hydrox/Mg Hydrox/Simethicone (Mylanta) 30 ml Q4HP PRN PO DYSPEPSIA; Start 11/05/18 at 14:15 Amlodipine Besylate (Norvasc) 5 mg DAILY PO Last administered on 11/07/18at 09:03; Start 11/07/18 at 09:00 Betamethasone/ Clotrimazole (Lotrisone Cream) TO LEFT UPPER EAR QHS TOP ; Start 11/05/18 at 21:00; Stop 11/05/18 at 21:00; Status DC Bisacodyl (Dulcolax Suppository) 10 mg DAILYPRN PRN [place] CONSTIPATION; Start 11/05/18 at 14:15 Bisacodyl (Dulcolax Tab) 5 mg QHS PO Last administered on 11/06/18at 20:05; Start 11/05/18 at 21:00 Docusate Sodium (Colace) 100 mg BID PO Last administered on 11/07/18 09:01; Start 11/05/18 at 21:00 Fluoxetine HCl (PROzac) 20 mg DAILY PO Last administered on 11/07/18 09:01; Start 11/05/18 at 15:00 Home Med (Med Rec Complete!) ASDIRECTED XX ; Start 11/05/18 at 15:00; Stop 11/05/18 at 15:01; Status DC Hydralazine HCl (Apresoline) 25 mg Q6H PRN PO Hypertension; Start 11/07/18 at 08:30 Hydrochlorothiazide (Hydrodiuril) 50 mg DAILY PO Last administered on 11/06/18at 08:37; Start 11/06/18 at 09:00; Stop 11/07/18 at 08:18; Status DC Lisinopril (Prinivil) 20 mg BID PO Last administered on 11/06/18at 20:08; Start 11/05/18 at 21:00; Stop 11/07/18 at 08:18; Status DC Magnesium Hydroxide (Milk Of Magnesia) 30 ml DAILYPRN PRN PO CONSTIPATION; Start 11/05/18 at 14:15 Pantoprazole Sodium (Protonix) 40 mg DAILY PO Last administered on 11/07/18at 09:01; Start 11/05/18 at 15:00 Patient Own Medication (Patient'S Own Med) clotrimazole betamethasone 0.05% ap... QHS XX ; Start 11/05/18 at 21:00; Stop 11/05/18 at 21:00; Status DC Simvastatin (Zocor) 20 mg QHS PO Last administered on 11/06/18at 20:05; Start 11/05/18 at 21:00 Sodium Chloride 1,000 ml @ 100 mls/hr Q10H IV Last administered on 11/07/18at 09:36; Start 11/07/18 at 08:30 Trazodone HCl (Desyrel) 25 mg QHS PO Last administered on 11/06/18at 20:04; Start 11/06/18 at 21:00 Trazodone HCl (Desyrel) 25 mg QHSP PRN PO INSOMNIA; Start 11/05/18 at 14:15; Stop 11/06/18 at 12:30; Status DC Trazodone HCl (Desyrel) 25 mg QHSP PRN PO SLEEP; Start 11/06/18 at 16:45 ADDISON URRUTIA MD Nov 07, 2018 11:05
[2018-11-07 14:00] VITALS: BP 134/70
[2018-11-07] MEDS: traZODone 50 MG TAB PO SCH (20:51)
[2018-11-07] MEDS: SIMVASTATIN 20 MG TAB PO SCH (20:51)
[2018-11-07] MEDS: BISACODYL 5 MG TAB PO SCH (20:51)
--- NOTE | 2018-11-07 20:51 | IPNPDOC ---
Subjective Date Seen The patient was seen on 11/07/18. Subjective Chief Complaint/HPI Patient was admitted to acute rehabilitation unit following right basal ganglia hemorrhagic stroke with left-sided weakness Events since last encounter The patient reports he is doing better. Reports he has been working with physical therapy and occupational therapy. The left-sided weakness appears to be improving. Denies any problems with nausea or vomiting. Upon asking him if he has been drinking adequate fluids, he thinks he could do better. Denies any abdominal pain. No constipation. Objective Physical Examination General Exam: Positive: Alert, Cooperative Eye Exam: Positive: PERRLA ENT Exam: Positive: Mucous membr. moist/pink Chest Exam: Positive: Clear to auscultation Heart Exam: Positive: Rate Normal, Normal S1, Normal S2 Abdomen Exam: Positive: Soft Neuro Exam: Positive: Other (left upper and lower extremities are almost a 5 over 5. Slight left pronator drift. Right side is 5 over 5. [id number] test slightly impaired on the left side, normal on the right side. Patient has left facial droop on exam.) Assessment /Plan Assessment Right basal ganglia hemorrhagic infarct with left-sided weakness: -Continue PT/OT -Continue statin -Avoiding any blood thinners Acute kidney injury: -May be related to inadequate oral fluid intake in addition to being on lisinopril and hydrochlorothiazide -Discontinued about medications -Ordered IV fluids -Recheck BMP in a.m. -Encouraged oral fluid intake -Avoid nephrotoxins Hypertension: -Discontinued lisinopril and hydrochlorothiazide given acute kidney injury Anxiety/depression -Continue fluoxetine and trazodone Hyperlipidemia: -Continue statin Plan/VTE VTE Prophylaxis Ordered?: Yes VTE Exclusion Pharmacological: Hemorrhage VS, I&O, 24H, [place] Vital Signs/I&O Vital Signs Date Time Temp Pulse Resp B/P (MAP) Pulse Ox O2 Delivery O2 Flow Rate FiO2 11/07/18 14:00 97.2 63 18 134/70 (91) 95 I&O- Last 24 Hours up to 6 AM 11/07/18 06:00 Intake Total 750 ml Output Total 300 ml Balance 450 ml Laboratory Data 24H LABS Laboratory Tests 2 11/07/18 06:23: Nucleated Red Blood Cells % (auto) 0.0, Anion Gap 7L, Glomerular Filtration Rate 34.6L, Blood Urea Nitrogen 46#H, Creatinine 2.02#H, Sodium Level 141, Potassium Level 3.8, Chloride Level 108H, Carbon Dioxide Level 26, Calcium Level 9.5 CBC/BMP Laboratory Tests 11/07/18 06:23 Red Blood Count 4.71, Mean Corpuscular Volume 94.7, Mean Corpuscular Hemoglobin 32.3, Mean Corpuscular Hemoglobin Concent 34.1, Red Cell Distribution Width 12.1, Calcium Level 9.5 Microbiology Microbiology 11/06/18 Urine Culture - Final, Complete SOLANO,ODALYS Cameron MD Nov 07, 2018 20:51
[2018-11-07] MEDS: LIDOCAINE 5% (LIDODERM) PATCH TD SCH (20:52)
[2018-11-07 21:09] VITALS: BP 141/76
[2018-11-08] MEDS: NS 1,000 ML IV SCH (04:39)
[2018-11-08 05:44] VITALS: BP 131/64
[2018-11-08 07:24] LABS: BASO # 0.1 10^3/uL (0.0-0.2); BASO % 0.7 % (0.0-1.0); EOS # 0.3 10^3/uL (0.0-0.50); EOS % 3.3 % (0.0-3.0); HEMATOCRIT 41.4 % (42.0-52.0); LYMPH # 1.7 10^3/uL (1.5-4.5); MEAN CORPUSCULAR HEMOGLOBIN 32.5 pg (27.0-33.0); MEAN CORPUSCULAR HGB CONC 33.8 g/dl (32.0-36.5); MEAN CORPUSCULAR VOLUME 96.1 fl (80.0-96.0); MONO # 0.7 10^3/uL (0.0-0.8); MONO % 8.6 % (0.0-5.0); NEUTROPHILS # 5.6 10^3/uL (1.8-7.7); NEUTROPHILS % 66.3 % (36.0-66.0); PLATELET COUNT, AUTOMATED 121 10^3/uL (150-450); RED BLOOD COUNT 4.31 10^6/uL (4.30-6.10); WHITE BLOOD COUNT 8.5 10^3/uL (4.0-10.0)
[2018-11-08 07:40] LABS: CALCIUM LEVEL 9.3 MG/DL (8.8-10.2); CREATININE FOR GFR 1.4 MG/DL (0.70-1.30); GLOMERULAR FILTRATION RATE 52.9 (>42); MAGNESIUM LEVEL 2.1 MG/DL (1.8-2.4); PHOSPHORUS LEVEL 2.4 MG/DL (2.5-4.9); POTASSIUM SERUM 3.8 MEQ/L (3.5-5.1)
[2018-11-08] MEDS: **NOTE PATIENT COMMENT** MISC XX SCH (09:00)
[2018-11-08] MEDS: PANTOPRAZOLE 40MG TAB (PROTONIX) PO SCH (09:36)
[2018-11-08] MEDS: FLUoxetine 20 MG CAP PO SCH (09:36)
[2018-11-08] MEDS: DOCUSATE SODIUM 100 MG CAP PO SCH ×2 (09:36→20:43)
[2018-11-08] MEDS: amLODIPine 5 MG TAB PO SCH (09:36)
--- NOTE | 2018-11-08 13:30 | IPNPDOC ---
Subjective Date Seen The patient was seen on 11/08/18. 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 Tolerating oral intake well. No chest or shortness of breath. No abdominal pain. Urinating okay and having bowel movements okay. Has been drinking plenty of fluids after he was encouraged to do so yesterday. Objective Physical Examination General Exam: Positive: Alert, Cooperative, Other (lying in bed. No distress.) Eye Exam: Positive: PERRLA ENT Exam: Positive: Mucous membr. 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: -Continue PT/OT -Continue statin -Avoiding any blood thinners Acute kidney injury: -Suspect related to inadequate oral fluid intake in addition to being on lisinopril and hydrochlorothiazide -Better today -Discontinue IV fluids -Encouraged to continue aching adequate oral fluid intake Hypertension: -Discontinued lisinopril and hydrochlorothiazide given acute kidney injury -Currently on amlodipineblood pressure is controlled Anxiety/depression -Continue fluoxetine and trazodone Hyperlipidemia: -Continue statin Plan/VTE VTE Prophylaxis Ordered?: Yes VTE Exclusion Pharmacological: Hemorrhage VS, I&O, 24H, Fishbone Vital Signs/I&O Vital Signs Date Time Temp Pulse Resp B/P (MAP) Pulse Ox O2 Delivery O2 Flow Rate FiO2 11/08/18 09:36 70 134/62 11/08/18 05:44 98.4 18 92 I&O- Last 24 Hours up to 6 AM 11/08/18 06:00 Intake Total 2689 ml Output Total 775 ml Balance 1914 ml Laboratory Data 24H LABS Laboratory Tests 2 11/08/18 05:31: Bedside Glucose (Misc Panel) 110 11/08/18 06:57: Immature Granulocyte % (Auto) 1.1, White Blood Count 8.5, Red Blood Count 4.31, Hemoglobin 14.0, Hematocrit 41.4L, Mean Corpuscular Volume 96.1H, Mean Corpuscular Hemoglobin 32.5, Mean Corpuscular Hemoglobin Concent 33.8, Red Cell Distribution Width 12.0, Platelet Count 121L, Neutrophils (%) (Auto) 66.3H, Lymphocytes (%) (Auto) 20.0L, Monocytes (%) (Auto) 8.6H, Eosinophils (%) (Auto) 3.3H, Basophils (%) (Auto) 0.7, Neutrophils # (Auto) 5.6, Lymphocytes # (Auto) 1.7, Monocytes # (Auto) 0.7, Eosinophils # (Auto) 0.3, Basophils # (Auto) 0.1, Nucleated Red Blood Cells % (auto) 0.0, Anion Gap 7L, Glomerular Filtration Rate 52.9, Blood Urea Nitrogen 42H, Creatinine 1.40H, Sodium Level 143, Potassium Level 3.8, Chloride Level 111H, Carbon Dioxide Level 25, Calcium Level 9.3, Phosphorus Level 2.4L, Magnesium Level 2.1 CBC/BMP Laboratory Tests 11/08/18 06:57 Red Blood Count 4.31, Mean Corpuscular Volume 96.1 H, Mean Corpuscular Hemoglobin 32.5, Mean Corpuscular Hemoglobin Concent 33.8, Red Cell Distribution Width 12.0, Neutrophils (%) (Auto) 66.3 H, Lymphocytes (%) (Auto) 20.0 L, Monocytes (%) (Auto) 8.6 H, Eosinophils (%) (Auto) 3.3 H, Basophils (%) (Auto) 0.7, Neutrophils # (Auto) 5.6, Lymphocytes # (Auto) 1.7, Monocytes # (Auto) 0.7, Eosinophils # (Auto) 0.3, Basophils # (Auto) 0.1, Calcium Level 9.3 Microbiology Microbiology 11/06/18 Urine Culture - Final, Complete SOLANO,ODALYS Cameron MD Nov 08, 2018 13:30
[2018-11-08 14:00] VITALS: BP 150/76
[2018-11-08 20:00] VITALS: BP 167/77
[2018-11-08] MEDS: LIDOCAINE 5% (LIDODERM) PATCH TD SCH (20:43)
[2018-11-08] MEDS: BISACODYL 5 MG TAB PO SCH (20:43)
[2018-11-08] MEDS: traZODone 50 MG TAB PO SCH (20:43)
[2018-11-08] MEDS: SIMVASTATIN 20 MG TAB PO SCH (20:43)
[2018-11-08 21:07] VITALS: BP 168/84
[2018-11-09 05:19] VITALS: BP_SYST 177; BP_DIAS 67; BP_DIAS 84
[2018-11-09 06:34] LABS: HEMATOCRIT 40.4 % (42.0-52.0); HEMOGLOBIN 13.8 g/dl (13.5-17.5); MEAN CORPUSCULAR HEMOGLOBIN 32.5 pg (27.0-33.0); MEAN CORPUSCULAR HGB CONC 34.2 g/dl (32.0-36.5); MEAN CORPUSCULAR VOLUME 95.3 fl (80.0-96.0); PLATELET COUNT, AUTOMATED 116 10^3/uL (150-450); RED BLOOD COUNT 4.24 10^6/uL (4.30-6.10); WHITE BLOOD COUNT 8.7 10^3/uL (4.0-10.0)
[2018-11-09 06:47] LABS: BLOOD UREA NITROGEN 30 MG/DL (7-18); CALCIUM LEVEL 9.7 MG/DL (8.8-10.2); CARBON DIOXIDE LEVEL 27 MEQ/L (21-32); CHLORIDE LEVEL 109 MEQ/L (98-107); GLOMERULAR FILTRATION RATE > 60.0 (>42); GLUCOSE, FASTING 117 MG/DL (70-100); POTASSIUM SERUM 3.9 MEQ/L (3.5-5.1); SODIUM LEVEL 141 MEQ/L (136-145)
[2018-11-09] MEDS: **NOTE PATIENT COMMENT** MISC XX SCH (09:00)
[2018-11-09] MEDS: DOCUSATE SODIUM 100 MG CAP PO SCH (09:00)
[2018-11-09] MEDS: FLUoxetine 20 MG CAP PO SCH (10:05)
[2018-11-09] MEDS: PANTOPRAZOLE 40MG TAB (PROTONIX) PO SCH (10:06)
[2018-11-09] MEDS: amLODIPine 10 MG TAB PO SCH (10:07)
[2018-11-09] MEDS ORDERED: LOPERAMIDE 2 MG CAP PO PRN (11:15)
--- NOTE | 2018-11-09 13:43 | IPNPDOC ---
Subjective Date Seen The patient was seen on 11/09/18. 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 No chest pain or shortness of breath. Denies any abdominal pain. Urinating okay. Does report having some problems on and off with some diarrheareports he also has proximal or diarrhea at home as well. Requests medication for the same. Objective Physical Examination General Exam: Positive: Cooperative, Other (sleeping, easily arousable) Eye Exam: Positive: PERRLA ENT Exam: Positive: Mucous membr. moist/pink Chest Exam: Positive: Clear to auscultation Heart Exam: Positive: Rate Normal, Normal S1, Normal S2 Abdomen Exam: Positive: Soft; Negative: Tenderness Neuro Exam: Positive: Other (cranial nerves II-12 intact except left facial dr oop. Slight left pronator drift. Strength 5 over 5 right upper and lower extremities and 4+ over 5 in left upper and lower extremity. [id number] test slightly impaired with a left upper extremity. 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 Increased amlodipine to 10 mg daily from 5 g daily -I had previously discontinued his lisinopril and hydrochlorothiazide due to acute kidney injury Diarrhea: -Suspect related to stool softener/laxative treatments -Discontinued scheduled Colace and scheduled Dulcolax -When necessary loperamide ordered Anxiety/depression -Continue fluoxetine and trazodone Hyperlipidemia: -Continue statin Plan/VTE VTE Prophylaxis Ordered?: Yes VTE Exclusion Pharmacological: Hemorrhage VS, I&O, 24H, Fishbone Vital Signs/I&O Vital Signs Date Time Temp Pulse Resp B/P (MAP) Pulse Ox O2 Delivery O2 Flow Rate FiO2 11/09/18 10:07 80 136/77 11/09/18 05:19 97.8 18 92 I&O- Last 24 Hours up to 6 AM 11/09/18 06:00 Intake Total 2040 ml Output Total 425 ml Balance 1615 ml Laboratory Data 24H LABS Laboratory Tests 2 11/09/18 06:01: Nucleated Red Blood Cells % (auto) 0.0, Anion Gap 5L, Glomerular Filtration Rate > 60.0, Blood Urea Nitrogen 30H, Creatinine 1.20, Sodium Level 141, Potassium Level 3.9, Chloride Level 109H, Carbon Dioxide Level 27, Calcium Level 9.7 CBC/BMP Laboratory Tests 11/09/18 06:01 Red Blood Count 4.24 L, Mean Corpuscular Volume 95.3, Mean Corpuscular Hem oglobin 32.5, Mean Corpuscular Hemoglobin Concent 34.2, Red Cell Distribution Width 12.0, Calcium Level 9.7 Microbiology Microbiology 11/06/18 Urine Culture - Final, Complete SOLANO,ODALYS Cameron MD Nov 09, 2018 13:43
[2018-11-09 14:00] VITALS: BP 152/80
[2018-11-09 20:00] VITALS: BP 182/80
[2018-11-09] MEDS: **hydrALAZINE HCL** 25 MG TAB PO PRN (20:17)
[2018-11-09] MEDS: SIMVASTATIN 20 MG TAB PO SCH (20:17)
[2018-11-09] MEDS: ACETAMINOPHEN TAB 650MG DOSE (2X325MG) PO PRN (20:18)
[2018-11-09] MEDS: traZODone 50 MG TAB PO SCH (20:18)
[2018-11-09] MEDS: LIDOCAINE 5% (LIDODERM) PATCH TD SCH (20:18)
[2018-11-10 06:00] VITALS: BP 166/87
[2018-11-10] MEDS: amLODIPine 10 MG TAB PO SCH (08:41)
[2018-11-10] MEDS: LISINOPRIL 20 MG TAB PO SCH (08:42)
[2018-11-10] MEDS: FLUoxetine 20 MG CAP PO SCH (08:42)
[2018-11-10] MEDS: PANTOPRAZOLE 40MG TAB (PROTONIX) PO SCH (08:42)
[2018-11-10] MEDS: **NOTE PATIENT COMMENT** MISC XX SCH (08:42)
[2018-11-10] MEDS: ACETAMINOPHEN TAB 650MG DOSE (2X325MG) PO PRN ×2 (11:24→20:39)
[2018-11-10 14:00] VITALS: BP 130/65
--- NOTE | 2018-11-10 15:17 | IPNPDOC ---
Subjective Date Seen The patient was seen on 11/10/18. 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 Denies any chest or shortness of breath. Tolerating oral intake. No nausea or vomiting. Denies any abdominal pain. Diarrhea seems to have slowed downhad only 1 episode today. Objective Physical Examination General Exam: Positive: Cooperative, Other (lying in bed. Sleeping. Easily arousable.) Eye Exam: Positive: PERRLA ENT Exam: Positive: Mucous membr. moist/pink Chest Exam: Positive: Clear to auscultation Heart Exam: Positive: Rate Normal, Normal S1, Normal S2 Abdomen Exam: Positive: Soft; Negative: Tenderness Neuro Exam: Positive: Other (strength 5 over 5 in right upper and lower extremities. 4+ over 5 in left upper and lower extremities. 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 Continue Norvasc 10 mg daily. Resumed lisinopril at 20 mg daily. -I had previously discontinued his lisinopril and hydrochlorothiazide due to acute kidney injury Diarrhea: -Suspect related to stool softener/laxative treatments -Discontinued scheduled Colace and scheduled Dulcolax 11/09/18 -When necessary loperamide ordered -Diarrhea seems to be improving Anxiety/depression -Continue fluoxetine and trazodone Hyperlipidemia: -Continue statin Plan/VTE VTE Prophylaxis Ordered?: Yes VTE Exclusion Pharmacological: Hemorrhage VS, I&O, 24H, Fishbone Vital Signs/I&O Vital Signs Date Time Temp Pulse Resp B/P (MAP) Pulse Ox O2 Delivery O2 Flow Rate FiO2 11/10/18 08:42 166/87 11/10/18 08:41 60 11/10/18 06:00 98.1 20 93 I&O- Last 24 Hours up to 6 AM 11/10/18 06:00 Intake Total 1200 ml Output Total 1150 ml Balance 50 ml Laboratory Data Microbiology Microbiology 11/06/18 Urine Culture - Final, Complete SOLANOODALYS Winters MD Nov 10, 2018 15:17
[2018-11-10 20:00] VITALS: BP 127/61
[2018-11-10] MEDS: SIMVASTATIN 20 MG TAB PO SCH (20:39)
[2018-11-10] MEDS: LIDOCAINE 5% (LIDODERM) PATCH TD SCH (20:39)
[2018-11-10] MEDS: traZODone 50 MG TAB PO SCH (20:39)
[2018-11-11 06:00] VITALS: BP 155/81
[2018-11-11 07:27] LABS: HEMATOCRIT 39.9 % (42.0-52.0); HEMOGLOBIN 13.4 g/dl (13.5-17.5); MEAN CORPUSCULAR HEMOGLOBIN 31.8 pg (27.0-33.0); MEAN CORPUSCULAR HGB CONC 33.6 g/dl (32.0-36.5); MEAN CORPUSCULAR VOLUME 94.8 fl (80.0-96.0); PLATELET COUNT, AUTOMATED 101 10^3/uL (150-450); RED BLOOD COUNT 4.21 10^6/uL (4.30-6.10); WHITE BLOOD COUNT 7.5 10^3/uL (4.0-10.0)
[2018-11-11 07:36] LABS: BLOOD UREA NITROGEN 31 MG/DL (7-18); CALCIUM LEVEL 9.4 MG/DL (8.8-10.2); CARBON DIOXIDE LEVEL 25 MEQ/L (21-32); CHLORIDE LEVEL 112 MEQ/L (98-107); CREATININE FOR GFR 1.21 MG/DL (0.70-1.30); GLOMERULAR FILTRATION RATE > 60.0 (>42); GLUCOSE, FASTING 105 MG/DL (70-100); POTASSIUM SERUM 3.8 MEQ/L (3.5-5.1); SODIUM LEVEL 142 MEQ/L (136-145)
[2018-11-11] MEDS: **NOTE PATIENT COMMENT** MISC XX SCH (09:00)
--- NOTE | 2018-11-11 09:30 | NUR ---
Recommend upgrade to regular solids. Continue thin liquids. Continue OOB for meals as tolerated w/ assist for meal set-up prn. Addendum: 11/11/18 at 0930 by FOSTER BARAHONA [facility] Amended: Links added.
[2018-11-11] MEDS: FLUoxetine 20 MG CAP PO SCH (10:05)
[2018-11-11] MEDS: amLODIPine 10 MG TAB PO SCH (10:06)
[2018-11-11] MEDS: PANTOPRAZOLE 40MG TAB (PROTONIX) PO SCH (10:06)
[2018-11-11] MEDS: LISINOPRIL 20 MG TAB PO SCH (10:06)
--- NOTE | 2018-11-11 10:26 | IPNPDOC ---
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 REVIEW OF SYSTEMS: The following is a completed review of systems and has been reviewed. Review of systems otherwise unremarkable. PAIN: Patient self reports no pain EYES: Negative for vision changes EARS, NOSE, & THROAT:+dysphagia (improving) CARDIOVASCULAR: denies chest pain or palpitations PULMONARY: Negative. Denies shortness of breath GASTROINTESTINAL: Negative for diarrhea/constipation GENITOURINARY: Negative for dysuria, + incontinence MUSCULOSKELETAL:+ lumbar stenosis NEUROLOGICAL: +dysarthria, dysphagia, left sided hemiplegia HEMATOLOGICAL: Negative SKIN: no rash PSYCHIATRIC: Unremarkable All other review of systems found to be negative. PHYSICAL EXAMINATION: VITAL SIGNS: Please see below. GENERAL: Pleasant and cooperative. No acute distress. HEENT: PERRL. Extraocular movements intact. Clear conjunctiva, left sided facial droop CARDIOVASCULAR: Regular rate and rhythm. No murmurs, rubs, or gallops LUNGS: Clear to auscultation bilaterally. No wheezes. No rhonchi ABDOMEN: Soft, nontender, nondistended. Positive bowel sounds. Normal active bowel sounds NEUROLOGICAL: Alert and oriented times three. Cranial nerves II through XII grossly intact except CN VII, Sensation grossly intact except extinction to touch in the RUE EXTREMITIES: 5\5 strength left upper extremities. 3+/5 left elbow flexion/extension, wrist extension, revenue stamp cutter, 5\5 strength right lower extremity. 4/5 strength in left lower extremity. SKIN: intact ASSESSMENT:73-year-old M with past medical history of HTN, HLD, and low back pain who presents status post hemorrhagic stroke. PLAN: 1. Rehab: OT, PT, RING FACER for dysphagia- MBS 11/06/18, ok drink thins, and upgraded per RING FACER to regular diet 2. 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 CArdio: pmh HTN and HLD- c/u statin, BP meds changed to hydralazine to avoid kidney injury, s/p Lisinopril- and HCTZ- medicine recs appreciated -per [facility] records ECHO ordered, however unable to view report in their EMR, will f/u on these results 4. Pain: Tylenopl prn 5. : admission Ua and Ucx negative, monitor PVRs- needs f/u outpatient urology for incontinence, per patient he has had urgency and incontience for 2 years and ahd his prostate checked once 6. GI ppx: will start protonix 7. DVT ppx: will hold heparin for now, use TEDs, admission Doppler negative for DVTs 8. Skin: Balmex to sacrum 9. Insomnia: c/u Trazodone to 50mg qHS, and 25mg prn if first dose does not work 10. Renal: DARRIAN resolved with fluids and better po intake 9. Dispo: November 23, progressing towards goal to home Allergies Coded Allergies: codeine (Verified Adverse Reaction, Unknown, nausea, 11/01/18) Vital Signs Vital Signs Date Time Temp Pulse Resp B/P (MAP) Pulse Ox O2 Delivery O2 Flow Rate FiO2 11/11/18 06:00 98.3 56 20 155/81 (105) 92 Laboratory Data CBC/BMP Laboratory Tests 11/11/18 06:37 Red Blood Count 4.21 L, Mean Corpuscular Volume 94.8, Mean Corpuscular Hemoglobin 31.8, Mean Corpuscular Hemoglobin Concent 33.6, Red Cell Distribution Width 11.9, Calcium Level 9.4 Labs 24H Laboratory Tests 2 11/11/18 06:37: Nucleated Red Blood Cells % (auto) 0.0, Anion Gap 5L, Glomerular Filtration Rate > 60.0, Blood Urea Nitrogen 31H, Creatinine 1.21, Sodium Level 142, Potassium Level 3.8, Chloride Level 112H, Carbon Dioxide Level 25, Calcium Level 9.4 Microbiology Microbiology 11/06/18 Urine Culture - Final, Complete Current Medications Current Medications Current Medications Acetaminophen (Tylenol Tab) 650 mg Q4HP PRN PO fever/MILD PAIN (PS 1-4) Last administered on 11/10/18at 20:39; Start 11/05/18 at 14:15 Al Hydrox/Mg Hydrox/Simethicone (Mylanta) 30 ml Q4HP PRN PO DYSPEPSIA; Start 11/05/18 at 14:15 Amlodipine Besylate (Norvasc) 5 mg DAILY PO Last administered on 11/08/18 09:36; Start 11/07/18 at 09:00; Stop 11/09/18 at 07:03; Status DC Amlodipine Besylate (Norvasc) 10 mg DAILY PO Last administered on 11/11/18at 10:06; Start 11/09/18 at 09:00 Betamethasone/ Clotrimazole (Lotrisone Cream) TO LEFT UPPER EAR QHS TOP ; Start 11/05/18 at 21:00; Stop 11/05/18 at 21:00; Status DC Bisacodyl (Dulcolax Suppository) 10 mg DAILYPRN PRN SD CONSTIPATION; Start 11/05/18 at 14:15 Bisacodyl (Dulcolax Tab) 5 mg QHS PO Last administered on 11/06/18at 20:05; Start 11/05/18 at 21:00; Stop 11/09/18 at 11:11; Status DC Docusate Sodium (Colace) 100 mg BID PO Last administered on 11/08/18at 09:36; Start 11/05/18 at 21:00; Stop 11/09/18 at 11:11; Status DC Fluoxetine HCl (PROzac) 20 mg DAILY PO Last administered on 11/11/18 10:05; Start 11/05/18 at 15:00 Home Med (Med Rec Complete!) ASDIRECTED XX ; Start 11/05/18 at 15:00; Stop 11/05/18 at 15:01; Status DC Hydralazine HCl (Apresoline) 25 mg Q6H PRN PO Hypertension Last administered on 11/09/18at 20:17; Start 11/07/18 at 08:30 Hydrochlorothiazide (Hydrodiuril) 50 mg DAILY PO Last administered on 11/06/18at 08:37; Start 11/06/18 at 09:00; Stop 11/07/18 at 08:18; Status DC Lidocaine (Lidoderm Patch) 1 patch QHS TD Last administered on 11/10/18at 20:39; Start 11/07/18 at 21:00 Lisinopril (Prinivil) 20 mg BID PO Last administered on 11/06/18at 20:08; Start 11/05/18 at 21:00; Stop 11/07/18 at 08:18; Status DC Lisinopril (Prinivil) 20 mg DAILY PO Last administered on 11/11/18 10:06; Start 11/10/18 at 09:00 Loperamide HCl (Imodium) 2 mg ASDIRECTED PRN PO DIARRHEA; Start 11/09/18 at 11:15 Magnesium Hydroxide (Milk Of Magnesia) 30 ml DAILYPRN PRN PO CONSTIPATION; Start 11/05/18 at 14:15 Non-Formulary Medication ( See Comment Field Below ) REMOVE LIDODERM PATCH DAILY@0900 XX Last administered on 11/11/18 09:00; Start 11/08/18 at 09:00 Pantoprazole Sodium (Protonix) 40 mg DAILY PO Last administered on 11/11/18 10:06; Start 11/05/18 at 15:00 Patient Own Medication (Patient'S Own Med) clotrimazole betamethasone 0.05% ap... QHS XX ; Start 11/05/18 at 21:00; Stop 11/05/18 at 21:00; Status DC Simvastatin (Zocor) 20 mg QHS PO Last administered on 11/10/18 20:39; Start 11/05/18 at 21:00 Sodium Chloride 1,000 ml @ 100 mls/hr Q10H IV Last administered on 11/08/18 04:39; Start 11/07/18 at 08:30; Stop 11/08/18 at 11:36; Status DC Trazodone HCl (Desyrel) 25 mg QHS PO Last administered on 11/06/18 20:04; Start 11/06/18 at 21:00; Stop 11/07/18 at 10:58; Status DC Trazodone HCl (Desyrel) 25 mg QHSP PRN PO INSOMNIA; Start 11/05/18 at 14:15; Stop 11/06/18 at 12:30; Status DC Trazodone HCl (Desyrel) 25 mg QHSP PRN PO SLEEP; Start 11/06/18 at 16:45 Trazodone HCl (Desyrel) 50 mg QHS PO Last administered on 11/10/18 20:39; Start 11/07/18 at 21:00 ADDISON URRUTIA MD Nov 11, 2018 10:25
[2018-11-11 14:00] VITALS: BP 167/79
--- NOTE | 2018-11-11 19:08 | IPNPDOC ---
Subjective Date Seen The patient was seen on 11/11/18. 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 moist/pink Chest Exam: Positive: Clear to auscultation Heart Exam: Positive: Rate Normal, Normal S1, Normal S2 Abdomen Exam: Positive: Soft; Negative: Tenderness Neuro Exam: Positive: Other (Slight weakness on the left side compared to right side4+ over 5. Slight left facial droop. 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 Continue Norvasc 10 mg daily and lisinopril at 20 mg daily. -Metoprolol maybe increased if needed if blood pressures remain elevated -I had previously discontinued his lisinopril and hydrochlorothiazide due to acute kidney injury Diarrhea: -Resolved -Suspect was related to stool softener/laxative treatments Anxiety/depression -Continue fluoxetine and trazodone Hyperlipidemia: -Continue statin Plan/VTE VTE Prophylaxis Ordered?: Yes VTE Exclusion Pharmacological: Hemorrhage VS, I&O, 24H, Fishbone Vital Signs/I&O Vital Signs Date Time Temp Pulse Resp B/P (MAP) Pulse Ox O2 Delivery O2 Flow Rate FiO2 11/11/18 14:00 98.3 62 18 167/79 (108) 93 I&O- Last 24 Hours up to 6 AM 11/11/18 06:00 Intake Total 1380 ml Balance 1380 ml Laboratory Data 24H LABS Laboratory Tests 2 11/11/18 06:37: Nucleated Red Blood Cells % (auto) 0.0, Anion Gap 5L, Glomerular Filtration Rate > 60.0, Blood Urea Nitrogen 31H, Creatinine 1.21, Sodium Level 142, Potassium Level 3.8, Chloride Level 112H, Carbon Dioxide Level 25, Calcium Level 9.4 CBC/BMP Laboratory Tests 11/11/18 06:37 Red Blood Count 4.21 L, Mean Corpuscular Volume 94.8, Mean Corpuscular Hemoglobin 31.8, Mean Corpuscular Hemoglobin Concent 33.6, Red Cell Distribution Width 11.9, Calcium Level 9.4 Microbiology Microbiology 11/06/18 Urine Culture - Final, Complete SOLANO,ODALYS Cameron MD Nov 11, 2018 19:08
[2018-11-11 20:00] VITALS: BP 157/79
[2018-11-11] MEDS: LIDOCAINE 5% (LIDODERM) PATCH TD SCH (20:32)
[2018-11-11] MEDS: SIMVASTATIN 20 MG TAB PO SCH (20:32)
[2018-11-11] MEDS: traZODone 50 MG TAB PO SCH (20:32)
[2018-11-12 06:00] VITALS: BP 133/77
[2018-11-12 07:30] LABS: BLOOD UREA NITROGEN 25 MG/DL (7-18); CALCIUM LEVEL 9.3 MG/DL (8.8-10.2); CARBON DIOXIDE LEVEL 26 MEQ/L (21-32); CHLORIDE LEVEL 111 MEQ/L (98-107); CREATININE FOR GFR 1.12 MG/DL (0.70-1.30); GLOMERULAR FILTRATION RATE > 60.0 (>42); GLUCOSE, FASTING 110 MG/DL (70-100); POTASSIUM SERUM 3.9 MEQ/L (3.5-5.1); SODIUM LEVEL 143 MEQ/L (136-145)
[2018-11-12] MEDS: PANTOPRAZOLE 40MG TAB (PROTONIX) PO SCH (08:38)
[2018-11-12] MEDS: FLUoxetine 20 MG CAP PO SCH (08:38)
[2018-11-12] MEDS: **NOTE PATIENT COMMENT** MISC XX SCH (08:39)
[2018-11-12] MEDS: amLODIPine 10 MG TAB PO SCH (08:39)
[2018-11-12] MEDS: LISINOPRIL 20 MG TAB PO SCH (08:39)
[2018-11-12] MEDS: TAMSULOSIN 0.4 MG CAP PO SCH (09:00)
--- NOTE | 2018-11-12 10:44 | IPNPDOC ---
PM&R Progress Note DATE OF SERVICE: Nov 12, 2018 Pediatric Sports Medicine Specialist Progress Note Subjective: Patient reports he did not sleep well last night again and that his room is too cold. REVIEW OF SYSTEMS: The following is a completed review of systems and has been reviewed. Review of systems otherwise unremarkable. PAIN: Patient self reports no pain EYES: Negative for vision changes EARS, NOSE, & THROAT:+dysphagia (improving) CARDIOVASCULAR: denies chest pain or palpitations PULMONARY: Negative. Denies shortness of breath GASTROINTESTINAL: Negative for diarrhea/constipation GENITOURINARY: Negative for dysuria, + incontinence MUSCULOSKELETAL:+ lumbar stenosis NEUROLOGICAL: +dysarthria, dysphagia, left sided hemiplegia HEMATOLOGICAL: Negative SKIN: no rash PSYCHIATRIC: Unremarkable All other review of systems found to be negative. PHYSICAL EXAMINATION: VITAL SIGNS: Please see below. GENERAL: Pleasant and cooperative. No acute distress. HEENT: PERRL. Extraocular movements intact. Clear conjunctiva, left sided facial droop CARDIOVASCULAR: Regular rate and rhythm. No murmurs, rubs, or gallops LUNGS: Clear to auscultation bilaterally. No wheezes. No rhonchi ABDOMEN: Soft, nontender, nondistended. Positive bowel sounds. Normal active joseph wel sounds NEUROLOGICAL: Alert and oriented times three. Cranial nerves II through XII grossly intact except CN VII, Sensation grossly intact except extinction to touch in the RUE EXTREMITIES: 5\5 strength left upper extremities. 3+/5 left elbow flexion/extension, wrist extension, filter cleaner, 5\5 strength right lower extremity. 4/5 strength in left lower extremity. SKIN: intact ASSESSMENT:73-year-old M with past medical history of HTN, HLD, and low back pain who presents status post hemorrhagic stroke. PLAN: 1. Rehab: OT, PT, FLEXO PRESS OPERATOR for dysphagia- MBS 11/06/18, ok drink thins, and upgraded per FLEXO PRESS OPERATOR to regular diet 2. 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 CArdio: pmh HTN and HLD- c/u statin, BP meds changed to hydralazine to avoid kidney injury, s/p Lisinopril- and HCTZ- medicine recs appreciated -per [facility] records ECHO ordered, however unable to view report in their EMR, will f/u on these results 4. Pain: Tylenopl prn 5. : admission Ua and Ucx negative, monitor PVRs- needs f/u outpatient urology for incontinence, per patient he has had urgency and incontinence for 2 years and ahd his prostate checked once, will start Flomax and monitor 6. GI ppx: will start protonix 7. DVT ppx: will hold heparin for now, use TEDs, admission Doppler negative for DVTs 8. Skin: Balmex to sacrum 9. Insomnia: will increase Trazodone to 100mg qHS 10. Renal: DARRIAN resolved with fluids and better po intake 9. Dispo: November 23, progressing towards goal to home Allergies Coded Allergies: codeine (Verified Adverse Reaction, Unknown, nausea, 11/01/18) Vital Signs Vital Signs Date Time Temp Pulse Resp B/P (MAP) Pulse Ox O2 Delivery O2 Flow Rate FiO2 11/12/18 08:39 165/76 11/12/18 08:39 59 11/12/18 06:00 98.8 19 95 Laboratory Data CBC/BMP Laboratory Tests 11/12/18 06:32 Calcium Level 9.3 Labs 24H Laboratory Tests 2 11/12/18 06:32: Anion Gap 6L, Glomerular Filtration Rate > 60.0, Blood Urea Nitrogen 25H, Creatinine 1.12, Sodium Level 143, Potassium Level 3.9, Chloride Level 111H, Carbon Dioxide Level 26, Calcium Level 9.3 Microbiology Microbiology 11/06/18 Urine Culture - Final, Complete Current Medications Current Medications Current Medications Acetaminophen (Tylenol Tab) 650 mg Q4HP PRN PO fever/MILD PAIN (PS 1-4) Last administered on 11/10/18at 20:39; Start 11/05/18 at 14:15 Al Hydrox/Mg Hydrox/Simethicone (Mylanta) 30 ml Q4HP PRN PO DYSPEPSIA; Start 11/05/18 at 14:15 Amlodipine Besylate (Norvasc) 5 mg DAILY PO Last administered on 11/08/18at 09:36; Start 11/07/18 at 09:00; Stop 11/09/18 at 07:03; Status DC Amlodipine Besylate (Norvasc) 10 mg DAILY PO Last administered on 11/12/18at 08:39; Start 11/09/18 at 09:00 Betamethasone/ Clotrimazole (Lotrisone Cream) TO LEFT UPPER EAR QHS TOP ; Start 11/05/18 at 21:00; Stop 11/05/18 at 21:00; Status DC Bisacodyl (Dulcolax Suppository) 10 mg DAILYPRN PRN [place] CONSTIPATION; Start 11/05/18 at 14:15 Bisacodyl (Dulcolax Tab) 5 mg QHS PO Last administered on 11/06/18at 20:05; Start 11/05/18 at 21:00; Stop 11/09/18 at 11:11; Status DC Docusate Sodium (Colace) 100 mg BID PO Last administered on 11/08/18at 09:36; Start 11/05/18 at 21:00; Stop 11/09/18 at 11:11; Status DC Fluoxetine HCl (PROzac) 20 mg DAILY PO Last administered on 11/12/18at 08:38; Start 11/05/18 at 15:00 Home Med (Med Rec Complete!) ASDIRECTED XX ; Start 11/05/18 at 15:00; Stop 11/05/18 at 15:01; Status DC Hydralazine HCl (Apresoline) 25 mg Q6H PRN PO Hypertension Last administered on 11/09/18at 20:17; Start 11/07/18 at 08:30 Hydrochlorothiazide (Hydrodiuril) 50 mg DAILY PO Last administered on 11/06/18at 08:37; Start 11/06/18 at 09:00; Stop 11/07/18 at 08:18; Status DC Lidocaine (Lidoderm Patch) 1 patch QHS TD Last administered on 11/11/18at 20:32; Start 11/07/18 at 21:00 Lisinopril (Prinivil) 20 mg BID PO Last administered on 11/06/18at 20:08; Start 11/05/18 at 21:00; Stop 11/07/18 at 08:18; Status DC Lisinopril (Prinivil) 20 mg DAILY PO Last administered on 11/12/18at 08:39; Start 11/10/18 at 09:00 Loperamide HCl (Imodium) 2 mg ASDIRECTED PRN PO DIARRHEA; Start 11/09/18 at 11:15 Magnesium Hydroxide (Milk Of Magnesia) 30 ml DAILYPRN PRN [place] CONSTIPATION; Start 11/05/18 at 14:15 Non-Formulary Medication ( See Comment Field Below ) REMOVE LIDODERM PATCH DAILY@0900 XX Last administered on 11/12/18 08:39; Start 11/08/18 at 09:00 Pantoprazole Sodium (Protonix) 40 mg DAILY PO Last administered on 11/12/18 08:38; Start 11/05/18 at 15:00 Patient Own Medication (Patient'S Own Med) clotrimazole betamethasone 0.05% ap... QHS XX ; Start 11/05/18 at 21:00; Stop 11/05/18 at 21:00; Status DC Simvastatin (Zocor) 20 mg QHS PO Last administered on 11/11/18 20:32; Start 11/05/18 at 21:00 Sodium Chloride 1,000 ml @ 100 mls/hr Q10H IV Last administered on 11/08/18 04:39; Start 11/07/18 at 08:30; Stop 11/08/18 at 11:36; Status DC Trazodone HCl (Desyrel) 25 mg QHS PO Last administered on 11/06/18at 20:04; Start 11/06/18 at 21:00; Stop 11/07/18 at 10:58; Status DC Trazodone HCl (Desyrel) 25 mg QHSP PRN PO INSOMNIA; Start 11/05/18 at 14:15; Stop 11/06/18 at 12:30; Status DC Trazodone HCl (Desyrel) 25 mg QHSP PRN PO SLEEP; Start 11/06/18 at 16:45 Trazodone HCl (Desyrel) 50 mg QHS PO Last administered on 11/11/18 20:32; Start 11/07/18 at 21:00 A-FIB/CHADSVASC A-FIB History Current/History of A-Fib/PAF?: No Current Oral Anticoagulant The: No ADDISON URRUTIA MD Nov 12, 2018 10:44
--- NOTE | 2018-11-12 13:34 | IPNPDOC ---
Text Note Date of Service The patient was seen on 11/12/18. NOTE Subjective: Patient seen and examined at bedside. No acute overnight events - no new medical complaints. Objective: General: NAD, lying comfortably in bed HEENT: NC/AT Lungs: CTA Heart: +S1S2 Abd: soft, obese, NT A/P: 73 yo male for right basal ganglia hemorrhagic infarct with residual left sided weakness: #Right basal ganglia hemorrhagic infarct with left-sided weakness: -Continue PT/OT -Continue statin -Avoiding any blood thinners #Acute kidney injury: -Resolved -Suspect was related to inadequate oral fluid intake in addition to being on lisinopril and hydrochlorothiazide -Encouraged oral fluid intake #Hypertension: - receiving norvasc and lisinopril #Diarrhea: -Resolved -Suspect was related to stool softener/laxative treatments #Anxiety/depression -Continue fluoxetine and trazodone #Hyperlipidemia: -Continue statin A-FIB/CHADSVASC A-FIB History Current/History of A-Fib/PAF?: No VS,Fishbone, I+O VS, Fishbone, I+O Laboratory Tests 11/12/18 06:32 Calcium Level 9.3 Vital Signs Date Time Temp Pulse Resp B/P (MAP) Pulse Ox O2 Delivery O2 Flow Rate FiO2 11/12/18 08:39 165/76 11/12/18 08:39 59 11/12/18 06:00 98.8 19 95 I&O- Last 24 Hours up to 6 AM 11/12/18 06:00 Intake Total 1160 ml Output Total 175 ml Balance 985 ml SONU LEO MD Nov 12, 2018 13:34
[2018-11-12 14:00] VITALS: BP 152/72
[2018-11-12 20:00] VITALS: BP 110/56
[2018-11-12] MEDS: SIMVASTATIN 20 MG TAB PO SCH (20:10)
[2018-11-12] MEDS: ACETAMINOPHEN TAB 650MG DOSE (2X325MG) PO PRN (20:10)
[2018-11-12] MEDS: LIDOCAINE 5% (LIDODERM) PATCH TD SCH (20:10)
[2018-11-12] MEDS: traZODone 100 MG TAB PO SCH (20:10)
[2018-11-13 06:01] VITALS: BP 155/75
[2018-11-13] MEDS: **NOTE PATIENT COMMENT** MISC XX SCH (09:00)
[2018-11-13] MEDS: PANTOPRAZOLE 40MG TAB (PROTONIX) PO SCH (09:20)
[2018-11-13] MEDS: LISINOPRIL 20 MG TAB PO SCH (09:20)
[2018-11-13] MEDS: TAMSULOSIN 0.4 MG CAP PO SCH (09:20)
[2018-11-13] MEDS: FLUoxetine 20 MG CAP PO SCH (09:20)
[2018-11-13] MEDS: amLODIPine 10 MG TAB PO SCH (09:20)
--- NOTE | 2018-11-13 10:33 | IPNPDOC ---
PM&R Progress Note DATE OF SERVICE: Nov 13, 2018 Principal Scientist Progress Note Subjective: Patient reports he slept better and enjoying therapy. REVIEW OF SYSTEMS: The following is a completed review of systems and has been reviewed. Review of systems otherwise unremarkable. PAIN: Patient self reports no pain EYES: Negative for vision changes EARS, NOSE, & THROAT:+dysphagia (improving) CARDIOVASCULAR: denies chest pain or palpitations PULMONARY: Negative. Denies shortness of breath GASTROINTESTINAL: Negative for diarrhea/constipation GENITOURINARY: Negative for dysuria, + incontinence MUSCULOSKELETAL:+ lumbar stenosis NEUROLOGICAL: +dysarthria, dysphagia, left sided hemiplegia HEMATOLOGICAL: Negative SKIN: no rash PSYCHIATRIC: Unremarkable All other review of systems found to be negative. PHYSICAL EXAMINATION: VITAL SIGNS: Please see below. GENERAL: Pleasant and cooperative. No acute distress. HEENT: PERRL. Extraocular movements intact. Clear conjunctiva, left sided facial droop CARDIOVASCULAR: Regular rate and rhythm. No murmurs, rubs, or gallops LUNGS: Clear to auscultation bilaterally. No wheezes. No rhonchi ABDOMEN: Soft, nontender, nondistended. Positive bowel sounds. Normal active bowel sounds NEUROLOGICAL: Alert and oriented times three. Cranial nerves II through XII grossly intact except CN VII, Sensation grossly intact except extinction to touch in the RUE EXTREMITIES: 5\5 strength left upper extremities. 3+/5 left elbow flexion/extension, wrist extension, fermenter operator, 5\5 strength right lower extremity. 4/5 strength in left lower extremity. SKIN: intact ASSESSMENT:73-year-old M with past medical history of HTN, HLD, and low back pain who presents status post hemorrhagic stroke. PLAN: 1. Rehab: OT, PT, STOPPER GRINDER for dysphagia- MBS 11/06/18, ok drink thins, and upgraded per STOPPER GRINDER to regular diet, inconsistent performance in OT and PT, 2. 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 CArdio: pmh HTN and HLD- c/u statin, BP meds changed to hydralazine prn and Norvasc to avoid kidney injury, s/p Lisinopril- and HCTZ- medicine recs appreciated -per [facility] records ECHO ordered, however unable to view report in their EMR, will f/u on these results 4. Pain: Tylenopl prn 5. : admission Ua and Ucx negative, monitor PVRs- needs f/u outpatient urology for incontinence, per patient he has had urgency and incontinence for 2 years and ahd his prostate checked once, c/u Flomax and monitor 6. GI ppx: c/u protonix 7. DVT ppx: will hold heparin for now, use TEDs, admission Doppler negative for DVTs 8. Skin: Balmex to sacrum 9. Insomnia: c/u Trazodone 100mg qHS 10. Renal: DARRIAN resolved with fluids and better po intake 11. Pain: right sided wilder pain, c/u lidoderm patch 9. Dispo: November 23, progressing towards goal to home Allergies Coded Allergies: codeine (Verified Adverse Reaction, Unknown, nausea, 11/01/18) Vital Signs Vital Signs Date Time Temp Pulse Resp B/P (MAP) Pulse Ox O2 Delivery O2 Flow Rate FiO2 11/13/18 09:20 155/75 11/13/18 09:20 76 11/13/18 06:01 98.7 18 93 Microbiology Microbiology 11/06/18 Urine Culture - Final, Complete Current Medications Current Medications Current Medications Acetaminophen (Tylenol Tab) 650 mg Q4HP PRN PO fever/MILD PAIN (PS 1-4) Last administered on 11/12/18at 20:10; Start 11/05/18 at 14:15 Al Hydrox/Mg Hydrox/Simethicone (Mylanta) 30 ml Q4HP PRN PO DYSPEPSIA; Start 11/05/18 at 14:15 Amlodipine Besylate (Norvasc) 5 mg DAILY PO Last administered on 11/08/18at 09:36; Start 11/07/18 at 09:00; Stop 11/09/18 at 07:03; Status DC Amlodipine Besylate (Norvasc) 10 mg DAILY PO Last administered on 11/13/18at 09:20; Start 11/09/18 at 09:00 Betamethasone/ Clotrimazole (Lotrisone Cream) TO LEFT UPPER EAR QHS TOP ; Start 11/05/18 at 21:00; Stop 11/05/18 at 21:00; Status DC Bisacodyl (Dulcolax Suppository) 10 mg DAILYPRN PRN [place] CONSTIPATION; Start 11/05/18 at 14:15 Bisacodyl (Dulcolax Tab) 5 mg QHS PO Last administered on 11/06/18at 20:05; Start 11/05/18 at 21:00; Stop 11/09/18 at 11:11; Status DC Docusate Sodium (Colace) 100 mg BID PO Last administered on 11/08/18at 09:36; Start 11/05/18 at 21:00; Stop 11/09/18 at 11:11; Status DC Fluoxetine HCl (PROzac) 20 mg DAILY PO Last administered on 11/13/18 09:20; Start 11/05/18 at 15:00 Home Med (Med Rec Complete!) ASDIRECTED XX ; Start 11/05/18 at 15:00; Stop 11/05/18 at 15:01; Status DC Hydralazine HCl (Apresoline) 25 mg Q6H PRN PO Hypertension Last administered on 11/09/18 20:17; Start 11/07/18 at 08:30 Hydrochlorothiazide (Hydrodiuril) 50 mg DAILY PO Last administered on 11/06/18at 08:37; Start 11/06/18 at 09:00; Stop 11/07/18 at 08:18; Status DC Lidocaine (Lidoderm Patch) 1 patch QHS TD Last administered on 11/12/18at 20:10; Start 11/07/18 at 21:00 Lisinopril (Prinivil) 20 mg BID PO Last administered on 11/06/18at 20:08; Start 11/05/18 at 21:00; Stop 11/07/18 at 08:18; Status DC Lisinopril (Prinivil) 20 mg DAILY PO Last administered on 11/13/18 09:20; Start 11/10/18 at 09:00 Loperamide HCl (Imodium) 2 mg ASDIRECTED PRN PO DIARRHEA; Start 11/09/18 at 11:15 Magnesium Hydroxide (Milk Of Magnesia) 30 ml DAILYPRN PRN PO CONSTIPATION; Start 11/05/18 at 14:15 Non-Formulary Medication ( See Comment Field Below ) REMOVE LIDODERM PATCH DAILY@0900 XX Last administered on 11/13/18at 09:00; Start 11/08/18 at 09:00 Pantoprazole Sodium (Protonix) 40 mg DAILY PO Last administered on 11/13/18 09:20; Start 11/05/18 at 15:00 Patient Own Medication (Patient'S Own Med) clotrimazole betamethasone 0.05% ap... QHS XX ; Start 11/05/18 at 21:00; Stop 11/05/18 at 21:00; Status DC Simvastatin (Zocor) 20 mg QHS PO Last administered on 11/12/18at 20:10; Start 11/05/18 at 21:00 Sodium Chloride 1,000 ml @ 100 mls/hr Q10H IV Last administered on 11/08/18 04:39; Start 11/07/18 at 08:30; Stop 11/08/18 at 11:36; Status DC Tamsulosin HCl (Flomax) 0.4 mg DAILY PO Last administered on 11/13/18 09:20; Start 11/12/18 at 09:00 Trazodone HCl (Desyrel) 25 mg QHS PO Last administered on 11/06/18at 20:04; Start 11/06/18 at 21:00; Stop 11/07/18 at 10:58; Status DC Trazodone HCl (Desyrel) 25 mg QHSP PRN PO INSOMNIA; Start 11/05/18 at 14:15; Stop 11/06/18 at 12:30; Status DC Trazodone HCl (Desyrel) 25 mg QHSP PRN PO SLEEP; Start 11/06/18 at 16:45; Stop 11/12/18 at 14:26; Status DC Trazodone HCl (Desyrel) 50 mg QHS PO Last administered on 11/11/18at 20:32; Start 11/07/18 at 21:00; Stop 11/12/18 at 14:26; Status DC Trazodone HCl (Desyrel) 100 mg QHS PO Last administered on 11/12/18at 20:10; Start 11/12/18 at 21:00 A-FIB/CHADSVASC A-FIB History Current/History of A-Fib/PAF?: No ADDISON URRUTIA MD Nov 13, 2018 10:33
--- NOTE | 2018-11-13 10:39 | IPNPDOC ---
Text Note Date of Service The patient was seen on 11/13/18. NOTE Subjective: Patient seen and examined at bedside. No acute overnight events - no new medical complaints. Objective: General: NAD, lying comfortably in bed HEENT: NC/AT Lungs: CTA Heart: +S1S2 Abd: soft, obese, NT A/P: 73 yo male for right basal ganglia hemorrhagic infarct with residual left sided weakness: #Right basal ganglia hemorrhagic infarct with left-sided weakness: -Continue PT/OT -Continue statin -Avoiding any blood thinners #Acute kidney injury: -Resolved -Suspect was related to inadequate oral fluid intake in addition to being on lisinopril and hydrochlorothiazide -Encouraged oral fluid intake #Hypertension: - receiving Norvasc 10 mg daily and lisinopril at 20 mg daily, hydralazine PRN (only needed once 11/09) #Diarrhea: -Resolved -Suspect was related to stool softener/laxative treatments #Anxiety/depression -Continue fluoxetine and trazodone #Hyperlipidemia: -Continue statin Dispo: further recs as per primary team - ARU VS,Gallito, I+O VS, Gallito, I+O Vital Signs Date Time Temp Pulse Resp B/P (MAP) Pulse Ox O2 Delivery O2 Flow Rate FiO2 11/13/18 09:20 155/75 11/13/18 09:20 76 11/13/18 06:01 98.7 18 93 I&O- Last 24 Hours up to 6 AM 11/13/18 06:00 Intake Total 2340 ml Output Total 575 ml Balance 1765 ml SONU LEO MD Nov 13, 2018 10:39
[2018-11-13 14:00] VITALS: BP 156/72
[2018-11-13 20:00] VITALS: BP 165/75
[2018-11-13] MEDS: traZODone 100 MG TAB PO SCH (20:36)
[2018-11-13] MEDS: ACETAMINOPHEN TAB 650MG DOSE (2X325MG) PO PRN (20:37)
[2018-11-13] MEDS: LIDOCAINE 5% (LIDODERM) PATCH TD SCH (20:37)
[2018-11-13] MEDS: SIMVASTATIN 20 MG TAB PO SCH (20:37)
[2018-11-14 05:44] VITALS: BP 160/80
[2018-11-14 07:10] LABS: BASO % 0.3 % (0.0-1.0); EOS # 0.1 10^3/uL (0.0-0.50); EOS % 0.9 % (0.0-3.0); HEMATOCRIT 38.6 % (42.0-52.0); HEMOGLOBIN 13.3 g/dl (13.5-17.5); LYMPH # 1.3 10^3/uL (1.5-4.5); LYMPH % 13.1 % (24.0-44.0); MEAN CORPUSCULAR HEMOGLOBIN 32.8 pg (27.0-33.0); MEAN CORPUSCULAR HGB CONC 34.5 g/dl (32.0-36.5); MEAN CORPUSCULAR VOLUME 95.3 fl (80.0-96.0); MONO # 0.7 10^3/uL (0.0-0.8); MONO % 6.6 % (0.0-5.0); NEUTROPHILS % 78.6 % (36.0-66.0); PLATELET COUNT, AUTOMATED 110 10^3/uL (150-450); RED BLOOD COUNT 4.05 10^6/uL (4.30-6.10); WHITE BLOOD COUNT 10.2 10^3/uL (4.0-10.0)
[2018-11-14 07:27] LABS: BLOOD UREA NITROGEN 24 MG/DL (7-18); CALCIUM LEVEL 9.7 MG/DL (8.8-10.2); CARBON DIOXIDE LEVEL 26 MEQ/L (21-32); CHLORIDE LEVEL 109 MEQ/L (98-107); CREATININE FOR GFR 1.18 MG/DL (0.70-1.30); GLOMERULAR FILTRATION RATE > 60.0 (>42); GLUCOSE, FASTING 120 MG/DL (70-100); POTASSIUM SERUM 4.1 MEQ/L (3.5-5.1); SODIUM LEVEL 140 MEQ/L (136-145)
[2018-11-14] MEDS: FLUoxetine 20 MG CAP PO SCH (08:29)
[2018-11-14] MEDS: TAMSULOSIN 0.4 MG CAP PO SCH (08:29)
[2018-11-14] MEDS: PANTOPRAZOLE 40MG TAB (PROTONIX) PO SCH (08:29)
[2018-11-14] MEDS: amLODIPine 10 MG TAB PO SCH (08:30)
[2018-11-14] MEDS: LISINOPRIL 20 MG TAB PO SCH (08:30)
[2018-11-14] MEDS: **NOTE PATIENT COMMENT** MISC XX SCH (08:31)
--- NOTE | 2018-11-14 12:14 | IPNPDOC ---
PM&R Progress Note DATE OF SERVICE: Nov 14, 2018 Packing Room Inspector Progress Note Subjective: Patient reports he feels well, mostly denies having pain during the day, but has low back pain while lying in bed. REVIEW OF SYSTEMS: The following is a completed review of systems and has been reviewed. Review of systems otherwise unremarkable. PAIN: Patient self reports no pain EYES: Negative for vision changes EARS, NOSE, & THROAT:+dysphagia (improving) CARDIOVASCULAR: denies chest pain or palpitations PULMONARY: Negative. Denies shortness of breath GASTROINTESTINAL: Negative for diarrhea/constipation GENITOURINARY: Negative for dysuria, + incontinence (improving) MUSCULOSKELETAL:+ lumbar stenosis NEUROLOGICAL: +dysarthria, dysphagia, left sided hemiplegia (improving) HEMATOLOGICAL: Negative SKIN: no rash PSYCHIATRIC: Unremarkable All other review of systems found to be negative. PHYSICAL EXAMINATION: VITAL SIGNS: Please see below. GENERAL: Pleasant and cooperative. No acute distress. HEENT: PERRL. Extraocular movements intact. Clear conjunctiva, left sided facial droop CARDIOVASCULAR: Regular rate and rhythm. No murmurs, rubs, or gallops LUNGS: Clear to auscultation bilaterally. No wheezes. No rhonchi ABDOMEN: Soft, nontender, nondistended. Positive bowel sounds. Normal active bowel sounds NEUROLOGICAL: Alert and oriented times three. Cranial nerves II through XII grossly intact except CN VII, Sensation grossly intact except extinction to touch in the RUE EXTREMITIES: 5\5 strength left upper extremities. 3+/5 left elbow fle xion/extension, wrist extension, production manager, 5\5 strength right lower extremity. 4/5 strength in left lower extremity. SKIN: intact ASSESSMENT:73-year-old M with past medical history of HTN, HLD, and low back pain who presents status post hemorrhagic stroke. PLAN: 1. Rehab: OT, PT, CARBON PRINTER for dysphagia- MBS 11/06/18, ok drink thins, and upgraded per CARBON PRINTER to regular diet, inconsistent performance in OT and PT, 2. 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 CArdio: pmh HTN and HLD- c/u statin, BP meds changed to hydralazine prn and Norvasc to avoid kidney injury, s/p Lisinopril- and HCTZ- medicine recs appreciated -per [facility] records ECHO ordered, however unable to view report in their EMR, will f/u on these results 4. Pain: Tylenopl prn 5. : admission Ua and Ucx negative, monitor PVRs- needs f/u outpatient urology for incontinence, per patient he has had urgency and incontinence for 2 years and ahd his prostate checked once, c/u Flomax and monitor -mild leukocytosis, will reorder UA 6. GI ppx: c/u protonix 7. DVT ppx: will hold heparin for now, use TEDs, admission Doppler negative for DVTs 8. Skin: Balmex to sacrum 9. Insomnia: c/u Trazodone 100mg qHS 10. Renal: DARRIAN resolved with fluids and better po intake 11. Pain: right sided neck pain, c/u lidoderm patch 9. Dispo: November 23, progressing towards goal to home Allergies Coded Allergies: codeine (Verified Adverse Reaction, Unknown, nausea, 11/01/18) Vital Signs Vital Signs Date Time Temp Pulse Resp B/P (MAP) Pulse Ox O2 Delivery O2 Flow Rate FiO2 11/14/18 08:30 136/69 11/14/18 08:30 60 11/14/18 05:44 97.7 18 91 Laboratory Data CBC/BMP Laboratory Tests 11/14/18 06:51 Red Blood Count 4.05 L, Mean Corpuscular Volume 95.3, Mean Corpuscular Hemoglobin 32.8, Mean Corpuscular Hemoglobin Concent 34.5, Red Cell Distribution Width 11.7, Neutrophils (%) (Auto) 78.6 H, Lymphocytes (%) (Auto) 13.1 L, Monocytes (%) (Auto) 6.6 H, Eosinophils (%) (Auto) 0.9, Basophils (%) (Auto) 0.3, Neutrophils # (Auto) 8.0 H, Lymphocytes # (Auto) 1.3 L, Monocytes # (Auto) 0.7, Eosinophils # (Auto) 0.1, Basophils # (Auto) 0.0, Calcium Level 9.7 Labs 24H Laboratory Tests 2 11/14/18 06:51: Immature Granulocyte % (Auto) 0.5, White Blood Count 10.2H, Red Blood Count 4.05L, Hemoglobin 13.3L, Hematocrit 38.6L, Mean Corpuscular Volume 95.3, Mean Corpuscular Hemoglobin 32.8, Mean Corpuscular Hemoglobin Concent 34.5, Red Cell Distribution Width 11.7, Platelet Count 110L, Neutrophils (%) (Auto) 78.6H, Lymphocytes (%) (Auto) 13.1L, Monocytes (%) (Auto) 6.6H, Eosinophils (%) (Auto) 0.9, Basophils (%) (Auto) 0.3, Neutrophils # (Auto) 8.0H, Lymphocytes # (Auto) 1.3L, Monocytes # (Auto) 0.7, Eosinophils # (Auto) 0.1, Basophils # (Auto) 0.0, Nucleated Red Blood Cells % (auto) 0.0, Anion Gap 5L, Glomerular Filtration Rate > 60.0, Blood Urea Nitrogen 24H, Creatinine 1.18, Sodium Level 140, Potassium Level 4.1, Chloride Level 109H, Carbon Dioxide Level 26, Calcium Level 9.7 Microbiology Microbiology 11/06/18 Urine Culture - Final, Complete Current Medications Current Medications Current Medications Acetaminophen (Tylenol Tab) 650 mg Q4HP PRN PO fever/MILD PAIN (PS 1-4) Last administered on 11/13/18at 20:37; Start 11/05/18 at 14:15 Al Hydrox/Mg Hydrox/Simethicone (Mylanta) 30 ml Q4HP PRN PO DYSPEPSIA; Start 11/05/18 at 14:15 Amlodipine Besylate (Norvasc) 5 mg DAILY PO Last administered on 11/08/18at 09:36; Start 11/07/18 at 09:00; Stop 11/09/18 at 07:03; Status DC Amlodipine Besylate (Norvasc) 10 mg DAILY PO Last administered on 11/14/18at 08:30; Start 11/09/18 at 09:00 Betamethasone/ Clotrimazole (Lotrisone Cream) TO LEFT UPPER EAR QHS TOP ; Start 11/05/18 at 21:00; Stop 11/05/18 at 21:00; Status DC Bisacodyl (Dulcolax Suppository) 10 mg DAILYPRN PRN IA CONSTIPATION; Start 11/05/18 at 14:15 Bisacodyl (Dulcolax Tab) 5 mg QHS PO Last administered on 11/06/18 20:05; Start 11/05/18 at 21:00; Stop 11/09/18 at 11:11; Status DC Docusate Sodium (Colace) 100 mg BID PO Last administered on 11/08/18 09:36; Start 11/05/18 at 21:00; Stop 11/09/18 at 11:11; Status DC Fluoxetine HCl (PROzac) 20 mg DAILY PO Last administered on 11/14/18 08:29; Start 11/05/18 at 15:00 Home Med (Med Rec Complete!) ASDIRECTED XX ; Start 11/05/18 at 15:00; Stop 11/05/18 at 15:01; Status DC Hydralazine HCl (Apresoline) 25 mg Q6H PRN PO Hypertension Last administered on 11/09/18 20:17; Start 11/07/18 at 08:30 Hydrochlorothiazide (Hydrodiuril) 50 mg DAILY PO Last administered on 11/06/18 08:37; Start 11/06/18 at 09:00; Stop 11/07/18 at 08:18; Status DC Lidocaine (Lidoderm Patch) 1 patch QHS TD Last administered on 11/13/18 20:37; Start 11/07/18 at 21:00 Lisinopril (Prinivil) 20 mg BID PO Last administered on 11/06/18 20:08; Start 11/05/18 at 21:00; Stop 11/07/18 at 08:18; Status DC Lisinopril (Prinivil) 20 mg DAILY PO Last administered on 11/14/18 08:30; Start 11/10/18 at 09:00 Loperamide HCl (Imodium) 2 mg ASDIRECTED PRN PO DIARRHEA; Start 11/09/18 at 11:15 Magnesium Hydroxide (Milk Of Magnesia) 30 ml DAILYPRN PRN PO CONSTIPATION; Start 11/05/18 at 14:15 Non-Formulary Medication ( See Comment Field Below ) REMOVE LIDODERM PATCH DAILY@0900 XX Last administered on 11/14/18 08:31; Start 11/08/18 at 09:00 Pantoprazole Sodium (Protonix) 40 mg DAILY PO Last administered on 11/14/18 08:29; Start 11/05/18 at 15:00 Patient Own Medication (Patient'S Own Med) clotrimazole betamethasone 0.05% ap... QHS XX ; Start 11/05/18 at 21:00; Stop 11/05/18 at 21:00; Status DC Simvastatin (Zocor) 20 mg QHS PO Last administered on 11/13/18at 20:37; Start 11/05/18 at 21:00 Sodium Chloride 1,000 ml @ 100 mls/hr Q10H IV Last administered on 11/08/18at 04:39; Start 11/07/18 at 08:30; Stop 11/08/18 at 11:36; Status DC Tamsulosin HCl (Flomax) 0.4 mg DAILY PO Last administered on 11/14/18at 08:29; Start 11/12/18 at 09:00 Trazodone HCl (Desyrel) 25 mg QHS PO Last administered on 11/06/18at 20:04; Start 11/06/18 at 21:00; Stop 11/07/18 at 10:58; Status DC Trazodone HCl (Desyrel) 25 mg QHSP PRN PO INSOMNIA; Start 11/05/18 at 14:15; Stop 11/06/18 at 12:30; Status DC Trazodone HCl (Desyrel) 25 mg QHSP PRN PO SLEEP; Start 11/06/18 at 16:45; Stop 11/12/18 at 14:26; Status DC Trazodone HCl (Desyrel) 50 mg QHS PO Last administered on 11/11/18at 20:32; Start 11/07/18 at 21:00; Stop 11/12/18 at 14:26; Status DC Trazodone HCl (Desyrel) 100 mg QHS PO Last administered on 11/13/18at 20:36; Start 11/12/18 at 21:00 A-FIB/CHADSVASC A-FIB History Current/History of A-Fib/PAF?: No ADDISON URRUTIA MD Nov 14, 2018 12:14
[2018-11-14 14:00] VITALS: BP 134/75
--- NOTE | 2018-11-14 18:42 | IPNPDOC ---
Subjective Date Seen The patient was seen on 11/14/18. Subjective Chief Complaint/HPI Patient seen and examined at the bedside. Reports that he has been working with PT and is making progress. Denies any acute complaints at this time. Objective Physical Examination General Exam: Positive: Alert, Cooperative, No Acute Distress Eye Exam: Positive: PERRLA ENT Exam: Positive: Mucous membr. moist/pink Neck Exam: Negative: JVD Chest Exam: Positive: Clear to auscultation, Normal air movement Heart Exam: Positive: Rate Normal, Normal S1, Normal S2 Abdomen Exam: Positive: Soft; Negative: Tenderness Neuro Exam: Positive: Other (Slight weakness on the left side compared to right side4+ over 5. Slight left facial droop. Slight left pronator drift.) Psych Exam: Positive: Mental status NL, Oriented x 3 A-FIB/CHADSVASC A-FIB History Current/History of A-Fib/PAF?: No Assessment /Plan Plan/VTE VTE Prophylaxis Ordered?: Yes VTE Exclusion Pharmacological: Hemorrhage Plan Right basal ganglia hemorrhagic infarct with left-sided weakness: Continue PT/OT Continue statin No blood thinning medication 2/2 Hx of Hemorrhagic CVA as noted above Acute kidney injury, resolved Hypertension Cont Norvasc, Lisinopril, Hydralazine PRN Diarrhea, resolved Anxiety/depression Continue fluoxetine and trazodone Hyperlipidemia Continue statin BPH Cont Flomax Dispo: as per PT/OT/Ammunition Assembly Ii Laborer in ARU VS, I&O, 24H, Fishbone Vital Signs/I&O Vital Signs Date Time Temp Pulse Resp B/P (MAP) Pulse Ox O2 Delivery O2 Flow Rate FiO2 11/14/18 14:00 98.1 63 20 134/75 (94) 92 I&O- Last 24 Hours up to 6 AM 11/14/18 06:00 Intake Total 1140 ml Output Total 550 ml Balance 590 ml Laboratory Data 24H LABS Laboratory Tests 2 11/14/18 06:51: Immature Granulocyte % (Auto) 0.5, White Blood Count 10.2H, Red Blood Count 4.05L, Hemoglobin 13.3L, Hematocrit 38.6L, Mean Corpuscular Volume 95.3, Mean Corpuscular Hemoglobin 32.8, Mean Corpuscular Hemoglobin Concent 34.5, Red Cell Distribution Width 11.7, Platelet Count 110L, Neutrophils (%) (Auto) 78.6H, Lymphocytes (%) (Auto) 13.1L, Monocytes (%) (Auto) 6.6H, Eosinophils (%) (Auto) 0.9, Basophils (%) (Auto) 0.3, Neutrophils # (Auto) 8.0H, Lymphocytes # (Auto) 1.3L, Monocytes # (Auto) 0.7, Eosinophils # (Auto) 0.1, Basophils # (Auto) 0.0, Nucleated Red Blood Cells % (auto) 0.0, Anion Gap 5L, Glomerular Filtration Rate > 60.0, Blood Urea Nitrogen 24H, Creatinine 1.18, Sodium Level 140, Potassium Level 4.1, Chloride Level 109H, Carbon Dioxide Level 26, Calcium Level 9.7 CBC/BMP Laboratory Tests 11/14/18 06:51 Red Blood Count 4.05 L, Mean Corpuscular Volume 95.3, Mean Corpuscular Hemoglobin 32.8, Mean Corpuscular Hemoglobin Concent 34.5, Red Cell Distribution Width 11.7, Neutrophils (%) (Auto) 78.6 H, Lymphocytes (%) (Auto) 13.1 L, Monocytes (%) (Auto) 6.6 H, Eosinophils (%) (Auto) 0.9, Basophils (%) (Auto) 0.3, Neutrophils # (Auto) 8.0 H, Lymphocytes # (Auto) 1.3 L, Monocytes # (Auto) 0.7, Eosinophils # (Auto) 0.1, Basophils # (Auto) 0.0, Calcium Level 9.7 Microbiology Microbiology 11/06/18 Urine Culture - Final, Complete GIULIA SCHULTZ MD Nov 14, 2018 18:42
[2018-11-14 20:00] VITALS: BP 155/74
[2018-11-14] MEDS: SIMVASTATIN 20 MG TAB PO SCH (20:04)
[2018-11-14] MEDS: traZODone 100 MG TAB PO SCH (20:05)
[2018-11-14] MEDS: ACETAMINOPHEN TAB 650MG DOSE (2X325MG) PO PRN (20:05)
[2018-11-14] MEDS: LIDOCAINE 5% (LIDODERM) PATCH TD SCH (20:05)
[2018-11-15 06:00] VITALS: BP 159/82
[2018-11-15 06:48] LABS: BASO % 0.5 % (0.0-1.0); EOS # 0.2 10^3/uL (0.0-0.50); EOS % 2.5 % (0.0-3.0); HEMATOCRIT 36.9 % (42.0-52.0); HEMOGLOBIN 12.9 g/dl (13.5-17.5); LYMPH # 1.4 10^3/uL (1.5-4.5); LYMPH % 17.5 % (24.0-44.0); MEAN CORPUSCULAR HEMOGLOBIN 33.1 pg (27.0-33.0); MEAN CORPUSCULAR VOLUME 94.6 fl (80.0-96.0); MONO # 0.6 10^3/uL (0.0-0.8); MONO % 7.2 % (0.0-5.0); NEUTROPHILS # 5.8 10^3/uL (1.8-7.7); NEUTROPHILS % 71.8 % (36.0-66.0); PLATELET COUNT, AUTOMATED 112 10^3/uL (150-450)
[2018-11-15] MEDS: **NOTE PATIENT COMMENT** MISC XX SCH (09:00)
[2018-11-15] MEDS: LISINOPRIL 20 MG TAB PO SCH (09:38)
[2018-11-15] MEDS: FLUoxetine 20 MG CAP PO SCH (09:39)
[2018-11-15] MEDS: PANTOPRAZOLE 40MG TAB (PROTONIX) PO SCH (09:39)
[2018-11-15] MEDS: amLODIPine 10 MG TAB PO SCH (09:39)
[2018-11-15] MEDS: TAMSULOSIN 0.4 MG CAP PO SCH (09:39)
--- NOTE | 2018-11-15 10:40 | IPNPDOC ---
Subjective Date Seen The patient was seen on 11/15/18. Subjective Chief Complaint/HPI Patient seen and examined at the bedside. No acute overnight events noted. Objective Physical Examination General Exam: Positive: Alert, Cooperative, No Acute Distress ENT Exam: Positive: Mucous membr. moist/pink Neck Exam: Negative: JVD Chest Exam: Positive: Clear to auscultation, Normal air movement Heart Exam: Positive: Rate Normal, Normal S1, Normal S2 Abdomen Exam: Positive: Soft; Negative: Tenderness Neuro Exam: Positive: Other (Slight weakness on the left side compared to right side4+ over 5. Slight left facial droop. Slight left pronator drift.) Psych Exam: Positive: Mental status NL, Oriented x 3 A-FIB/CHADSVASC A-FIB History Current/History of A-Fib/PAF?: No Assessment /Plan Plan/VTE VTE Prophylaxis Ordered?: Yes VTE Exclusion Pharmacological: Hemorrhage Plan Right basal ganglia hemorrhagic infarct with left-sided weakness: Continue PT/OT Continue statin No blood thinning medication 2/2 Hx of Hemorrhagic CVA as noted above Acute kidney injury, resolved Hypertension Cont Norvasc, Lisinopril, Hydralazine PRN Diarrhea, resolved Anxiety/depression Continue fluoxetine and trazodone Hyperlipidemia Continue statin BPH Cont Flomax Dispo: as per PT/OT/Manager Statistical Programming in ARU VS, I&O, 24H, Fishbone Vital Signs/I&O Vital Signs Date Time Temp Pulse Resp B/P (MAP) Pulse Ox O2 Delivery O2 Flow Rate FiO2 11/15/18 06:00 99.3 60 18 159/82 (107) 92 I&O- Last 24 Hours up to 6 AM 11/15/18 06:00 Intake Total 1080 ml Output Total 200 ml Balance 880 ml Laboratory Data 24H LABS Laboratory Tests 2 11/15/18 06:32: Immature Granulocyte % (Auto) 0.5, White Blood Count 8.0, Red Blood Count 3.90L, Hemoglobin 12.9L, Hematocrit 36.9L, Mean Corpuscular Volume 94.6, Mean Corpuscular Hemoglobin 33.1H, Mean Corpuscular Hemoglobin Concent 35.0, Red Cell Distribution Width 11.6, Platelet Count 112L, Neutrophils (%) (Auto) 71.8H, Lymphocytes (%) (Auto) 17.5L, Monocytes (%) (Auto) 7.2H, Eosinophils (%) (Auto) 2.5, Basophils (%) (Auto) 0.5, Neutrophils # (Auto) 5.8, Lymphocytes # (Auto) 1.4L, Monocytes # (Auto) 0.6, Eosinophils # (Auto) 0.2, Basophils # (Auto) 0.0, Nucleated Red Blood Cells % (auto) 0.0 CBC/BMP Laboratory Tests 11/15/18 06:32 Red Blood Count 3.90 L, Mean Corpuscular Volume 94.6, Mean Corpuscular Hem oglobin 33.1 H, Mean Corpuscular Hemoglobin Concent 35.0, Red Cell Distribution Width 11.6, Neutrophils (%) (Auto) 71.8 H, Lymphocytes (%) (Auto) 17.5 L, Monocytes (%) (Auto) 7.2 H, Eosinophils (%) (Auto) 2.5, Basophils (%) (Auto) 0.5, Neutrophils # (Auto) 5.8, Lymphocytes # (Auto) 1.4 L, Monocytes # (Auto) 0.6, Eosinophils # (Auto) 0.2, Basophils # (Auto) 0.0 Microbiology Microbiology 11/06/18 Urine Culture - Final, Complete GIULIA SCHULTZ MD Nov 15, 2018 10:40
[2018-11-15 14:26] VITALS: BP 134/70
[2018-11-15 20:00] VITALS: BP 140/78
[2018-11-15] MEDS: traZODone 100 MG TAB PO SCH (20:00)
[2018-11-15] MEDS: SIMVASTATIN 20 MG TAB PO SCH (20:01)
[2018-11-15] MEDS: LIDOCAINE 5% (LIDODERM) PATCH TD SCH (20:01)
[2018-11-16 06:00] VITALS: BP 142/72
[2018-11-16] MEDS: PANTOPRAZOLE 40MG TAB (PROTONIX) PO SCH (08:14)
[2018-11-16] MEDS: FLUoxetine 20 MG CAP PO SCH (08:14)
[2018-11-16] MEDS: LISINOPRIL 20 MG TAB PO SCH (08:15)
[2018-11-16] MEDS: TAMSULOSIN 0.4 MG CAP PO SCH (08:15)
[2018-11-16] MEDS: amLODIPine 10 MG TAB PO SCH (08:15)
[2018-11-16] MEDS: **NOTE PATIENT COMMENT** MISC XX SCH (08:17)
[2018-11-16 14:00] VITALS: BP 142/65
--- NOTE | 2018-11-16 14:58 | IPNPDOC ---
Subjective Date Seen The patient was seen on 11/16/18. Subjective Chief Complaint/HPI Patient seen and examined at bedside. No acute overnight events noted. Objective Physical Examination General Exam: Positive: Alert, Cooperative, No Acute Distress ENT Exam: Positive: Mucous membr. moist/pink Neck Exam: Negative: JVD Chest Exam: Positive: Clear to auscultation, Normal air movement Heart Exam: Positive: Rate Normal, Normal S1, Normal S2 Abdomen Exam: Positive: Soft; Negative: Tenderness Extremity Exam: Negative: Tenderness, Swelling Neuro Exam: Positive: Other (Slight weakness on the left side compared to right side4+ over 5. Slight left facial droop. Slight left pronator drift.) Psych Exam: Positive: Mental status NL, Oriented x 3 Assessment /Plan Plan/VTE VTE Prophylaxis Ordered?: Yes VTE Exclusion Pharmacological: Hemorrhage Plan Right basal ganglia hemorrhagic infarct with left-sided weakness: Continue PT/OT Continue statin No blood thinning medication 2/2 Hx of Hemorrhagic CVA as noted above Acute kidney injury, resolved Hypertension Cont Norvasc, Lisinopril, Hydralazine PRN Diarrhea, resolved Anxiety/depression Continue fluoxetine and trazodone Hyperlipidemia Continue statin BPH Cont Flomax Dispo: as per PT/OT/Online Advertising Manager in ARU VS, I&O, 24H, Fishbone Vital Signs/I&O Vital Signs Date Time Temp Pulse Resp B/P (MAP) Pulse Ox O2 Delivery O2 Flow Rate FiO2 11/16/18 14:00 98.3 63 18 142/65 (90) 94 I&O- Last 24 Hours up to 6 AM 11/16/18 06:00 Intake Total 500 ml Output Total 0 ml Balance 500 ml Laboratory Data Microbiology Microbiology 11/06/18 Urine Culture - Final, Complete GIULIA SCHULTZ MD Nov 16, 2018 14:57
[2018-11-16 20:00] VITALS: BP 154/77
[2018-11-16] MEDS: SIMVASTATIN 20 MG TAB PO SCH (20:53)
[2018-11-16] MEDS: traZODone 100 MG TAB PO SCH (20:53)
[2018-11-16] MEDS: LIDOCAINE 5% (LIDODERM) PATCH TD SCH (20:53)
[2018-11-17 06:00] VITALS: BP 158/79
[2018-11-17] MEDS: **NOTE PATIENT COMMENT** MISC XX SCH (09:00)
[2018-11-17] MEDS: LISINOPRIL 20 MG TAB PO SCH (09:18)
[2018-11-17] MEDS: FLUoxetine 20 MG CAP PO SCH (09:18)
[2018-11-17] MEDS: PANTOPRAZOLE 40MG TAB (PROTONIX) PO SCH (09:19)
[2018-11-17] MEDS: amLODIPine 10 MG TAB PO SCH (09:19)
[2018-11-17] MEDS: TAMSULOSIN 0.4 MG CAP PO SCH (09:19)
[2018-11-17 14:00] VITALS: BP 160/88
--- NOTE | 2018-11-17 16:00 | IPNPDOC ---
Subjective Date Seen The patient was seen on 11/17/18. Subjective Chief Complaint/HPI Patient admitted for functional optimization to ARU after having a hemorrhagic right basal ganglia stroke. No acute overnight events noted. Objective Physical Examination General Exam: Positive: Alert, Cooperative, No Acute Distress ENT Exam: Positive: Mucous membr. moist/pink Neck Exam: Negative: JVD Chest Exam: Positive: Clear to auscultation, Normal air movement Heart Exam: Positive: Rate Normal, Normal S1, Normal S2 Abdomen Exam: Positive: Soft; Negative: Tenderness Extremity Exam: Negative: Tenderness, Swelling Neuro Exam: Positive: Other (Slight weakness on the left side compared to right side4+ over 5. Slight left facial droop. Slight left pronator drift.) A-FIB/CHADSVASC A-FIB History Current/History of A-Fib/PAF?: No Assessment /Plan Plan/VTE VTE Prophylaxis Ordered?: Yes VTE Exclusion Pharmacological: Hemorrhage Plan Right basal ganglia hemorrhagic infarct with left-sided weakness: Continue PT/OT Continue statin No blood thinning medication 2/2 Hx of Hemorrhagic CVA as noted above Acute kidney injury, resolved Hypertension Cont Norvasc, Lisinopril, Hydralazine PRN Diarrhea, resolved Anxiety/depression Continue fluoxetine and trazodone Hyperlipidemia Continue statin BPH Cont Flomax Dispo: as per PT/OT/Motor Room Controller in ARU VS, I&O, 24H, Fishbone Vital Signs/I&O Vital Signs Date Time Temp Pulse Resp B/P (MAP) Pulse Ox O2 Delivery O2 Flow Rate FiO2 11/17/18 14:00 98.7 63 15 160/88 (112) 93 I&O- Last 24 Hours up to 6 AM 11/17/18 05:59 Intake Total 800 ml Output Total 200 ml Balance 600 ml GIULIA SCHULTZ MD Nov 17, 2018 16:00
[2018-11-17 20:31] VITALS: BP 167/64
[2018-11-17] MEDS: **hydrALAZINE HCL** 25 MG TAB PO PRN (20:52)
[2018-11-17] MEDS: SIMVASTATIN 20 MG TAB PO SCH (20:52)
[2018-11-17] MEDS: LIDOCAINE 5% (LIDODERM) PATCH TD SCH (20:52)
[2018-11-17] MEDS: traZODone 100 MG TAB PO SCH (20:52)
[2018-11-18 06:02] VITALS: BP 155/76
[2018-11-18] MEDS: **NOTE PATIENT COMMENT** MISC XX SCH (09:00)
[2018-11-18] MEDS: TAMSULOSIN 0.4 MG CAP PO SCH (09:10)
[2018-11-18] MEDS: FLUoxetine 20 MG CAP PO SCH (09:10)
[2018-11-18] MEDS: PANTOPRAZOLE 40MG TAB (PROTONIX) PO SCH (09:10)
[2018-11-18] MEDS: ACETAMINOPHEN TAB 650MG DOSE (2X325MG) PO PRN (09:11)
[2018-11-18] MEDS: LISINOPRIL 20 MG TAB PO SCH (09:12)
[2018-11-18] MEDS: amLODIPine 10 MG TAB PO SCH (09:12)
--- NOTE | 2018-11-18 14:11 | IPNPDOC ---
Subjective Date Seen The patient was seen on 11/18/18. Subjective Chief Complaint/HPI 73-year-old male, admitted with right basal ganglia hemorrhagic stroke. Events since last encounter Feels overall improved, complains lidocaine patch rolls off at night because usually put on when already in bed. Requesting lidocaine patch be applied while he still sitting in the chair at about 8 PM. Otherwise, feels physical therapy has been helpful Objective Physical Examination Other physical findings General: Morbidly obese, elderly male in no acute distress Skin: Warm, dry, intact. Cardiovascular: Regular rate and rhythm, no MRG, no jugular venous distention, no edema. Respiratory:CTAB, no accessory muscle use noted. Abdomen: Bowel sounds +, no tenderness, no distention Musculoskeletal: Limited range of motion to left extremity No joint deformities, Neurologic: Generalized weakness, Left hemiplegia, facial droop, alert and chandu ented 3 Psychiatric: Appropriate mood and affect, no anxiety or agitation. A-FIB/CHADSVASC A-FIB History Current/History of A-Fib/PAF?: No Current Oral Anticoagulant The: No Assessment /Plan Problems (1) Hemorrhagic stroke Status: Acute Problem Specific Plan: Consult Specialist Problem Text: -Right basal ganglia hemorrhagic infarct -Treated at another facility and transferred here for rehabilitation -Continued monitoring of blood pressure and adjustment of medications for target systolic blood pressure 140 (2) Cervicalgia Status: Acute Problem Text: -Likely due to effects of acute stroke -Continue lidocaine patch -Discussed with RN administration time for increased efficacy as requested by patient -Follow up on response to therapy (3) Hemiplegia of left dominant side as late effect of cerebral infarction Status: Acute Problem Text: -Currently in rehabilitation for mobilization and strengthening -Recommendations for management by primary team -fall precautions (4) HTN (hypertension) Status: Chronic Problem Text: -Continue blood pressure control -Continue Norvasc, lisinopril, hydralazine -Monitoring for response to therapy per unit protocol (5) Hyperlipidemia Discussed With: Health Care Proxy Problem Text: -Continue statin therapy (6) Anxiety and depression Status: Chronic Problem Text: -Continue fluoxetine and trazodone Plan/VTE VTE Prophylaxis Ordered?: Yes VTE Exclusion Pharmacological: Hemorrhage VS, I&O, 24H, Fishbone Vital Signs/I&O Vital Signs Date Time Temp Pulse Resp B/P (MAP) Pulse Ox O2 Delivery O2 Flow Rate FiO2 11/18/18 09:12 60 142/76 11/18/18 06:02 97.7 18 93 I&O- Last 24 Hours up to 6 AM 11/18/18 06:00 Intake Total 1440 ml Balance 1440 ml ERIN KUMAR [facility] Nov 18, 2018 14:11
[2018-11-18 15:30] VITALS: BP 162/88
[2018-11-18 20:00] VITALS: BP 159/79
[2018-11-18] MEDS: SIMVASTATIN 20 MG TAB PO SCH (20:40)
[2018-11-18] MEDS: traZODone 100 MG TAB PO SCH (20:40)
[2018-11-18] MEDS: ANALGESIC BALM CRM 120 GM TOP SCH (20:41)
[2018-11-19 06:00] VITALS: BP 158/88
[2018-11-19 08:30] LABS: HEMATOCRIT 41.6 % (42.0-52.0); HEMOGLOBIN 14.1 g/dl (13.5-17.5); MEAN CORPUSCULAR HEMOGLOBIN 32.3 pg (27.0-33.0); MEAN CORPUSCULAR HGB CONC 33.9 g/dl (32.0-36.5); MEAN CORPUSCULAR VOLUME 95.2 fl (80.0-96.0); PLATELET COUNT, AUTOMATED 151 10^3/uL (150-450); RED BLOOD COUNT 4.37 10^6/uL (4.30-6.10); WHITE BLOOD COUNT 7.1 10^3/uL (4.0-10.0)
[2018-11-19 08:58] LABS: BLOOD UREA NITROGEN 18 MG/DL (7-18); CALCIUM LEVEL 9.5 MG/DL (8.8-10.2); CARBON DIOXIDE LEVEL 26 MEQ/L (21-32); CHLORIDE LEVEL 111 MEQ/L (98-107); CREATININE FOR GFR 1.14 MG/DL (0.70-1.30); GLOMERULAR FILTRATION RATE > 60.0 (>42); GLUCOSE, FASTING 143 MG/DL (70-100); POTASSIUM SERUM 3.8 MEQ/L (3.5-5.1); SODIUM LEVEL 142 MEQ/L (136-145)
[2018-11-19] MEDS: TAMSULOSIN 0.4 MG CAP PO SCH (09:25)
[2018-11-19] MEDS: FLUoxetine 20 MG CAP PO SCH (09:25)
[2018-11-19] MEDS: PANTOPRAZOLE 40MG TAB (PROTONIX) PO SCH (09:25)
[2018-11-19] MEDS: amLODIPine 10 MG TAB PO SCH (09:25)
[2018-11-19] MEDS: LISINOPRIL 20 MG TAB PO SCH (09:26)
[2018-11-19] MEDS: ANALGESIC BALM CRM 120 GM TOP SCH ×3 (09:26→20:08)
[2018-11-19] MEDS: LIDOCAINE 5% (LIDODERM) PATCH TD SCH (09:26)
--- NOTE | 2018-11-19 11:11 | IPNPDOC ---
Subjective Date Seen The patient was seen on 11/19/18. Subjective Chief Complaint/HPI 73-year-old male, past medical history significant for obesity, hypertension, hyperlipidemia, who unfortunately 2018, developed sudden onset of dysarthria, left-sided facial droop and weakness. Patient took aspirin and presented to the emergency room where CAT scan showed 4.2 x 1.8 cm acute right ganglia hemorrhage. Events since last encounter Persisting but improving left-sided weakness. Patient is able to squeeze better today, sitting up to chair and able to lean forward to assist in physical assessment. Denies any pain or discomfort at this time. Objective Physical Examination Other physical findings General: Morbidly obese elderly male, up to chair at bedside, in no acute distress Skin: Warm, dry, intact. Cardiovascular: Regular rate and rhythm, no MRG, no jugular venous distention, no edema. Respiratory:CTAB, no accessory muscle use noted. Abdomen: Bowel sounds +, no tenderness, no distention Musculoskeletal: Limited range of motion to left extremity No joint deformities, Neurologic: Generalized weakness, Left hemiplegia, facial droop, alert and oriented 3 Psychiatric: Appropriate mood and affect, no anxiety or agitation. A-FIB/CHADSVASC A-FIB History Current/History of A-Fib/PAF?: No Assessment /Plan Problems (1) Hemorrhagic stroke Status: Acute Problem Specific Plan: Consult Specialist Problem Text: -Acute right basal ganglia hemorrhagic infarct with left neurologic deficits -Continued in rehabilitation facility for mobilization and strengthening -. Initially Treated at another facility and transferred here for rehabilitation -Continue monitoring of blood pressure and adjustment of medications for target systolic blood pressure 140 (2) Cervicalgia Status: Acute Problem Text: -Patient reports improvement in pain this morning. Likely due to effects of acute stroke -Continue lidocaine patch (3) Hemiplegia of left dominant side as late effect of cerebral infarction Status: Acute Response to Treatment: Improving Problem Text: -Currently in rehabilitation for mobilization and strengthening -Follow recommendations for management by primary team -fall precautions (4) HTN (hypertension) Status: Chronic Problem Text: -Systolic blood pressure still elevated greater than 140 mmHg -.Adjust dose of current blood pressure medications -Continue Norvasc, lisinopril, hydralazine -Monitoring for response to therapy per unit protocol (5) Hyperlipidemia Discussed With: Health Care Proxy Problem Text: -Continue statin therapy (6) Anxiety and depression Status: Chronic Problem Text: -Continue fluoxetine and trazodone Plan/VTE VTE Prophylaxis Ordered?: Yes VTE Exclusion Pharmacological: Hemorrhage VS, I&O, 24H, Fishbone Vital Signs/I&O Vital Signs Date Time Temp Pulse Resp B/P (MAP) Pulse Ox O2 Delivery O2 Flow Rate FiO2 11/19/18 09:25 59 158/88 11/19/18 06:00 97.7 18 90 I&O- Last 24 Hours up to 6 AM 11/19/18 06:00 Intake Total 1520 ml Output Total 225 ml Balance 1295 ml Laboratory Data 24H LABS Laboratory Tests 2 11/19/18 08:04: Nucleated Red Blood Cells % (auto) 0.0, Anion Gap 5L, Glomerular Filtration Rate > 60.0, Blood Urea Nitrogen 18, Creatinine 1.14, Sodium Level 142, Potassium Lev el 3.8, Chloride Level 111H, Carbon Dioxide Level 26, Calcium Level 9.5 CBC/BMP Laboratory Tests 11/19/18 08:04 Red Blood Count 4.37, Mean Corpuscular Volume 95.2, Mean Corpuscular Hemoglobin 32.3, Mean Corpuscular Hemoglobin Concent 33.9, Red Cell Distribution Width 11.5, Calcium Level 9.5 ERIN KUMAR [facility] November 19, 2018 11:11
--- NOTE | 2018-11-19 11:28 | IPNPDOC ---
PM&R Progress Note DATE OF SERVICE: Nov 18, 2018 Inspector Mechanical Progress Note Subjective: Patient reports his low back is bothering him and that he reports having nearly daily bowel movements. REVIEW OF SYSTEMS: The following is a completed review of systems and has been reviewed. Review of systems otherwise unremarkable. PAIN: Patient self reports no pain EYES: Negative for vision changes EARS, NOSE, & THROAT:+dysphagia (improving) CARDIOVASCULAR: denies chest pain or palpitations PULMONARY: Negative. Denies shortness of breath GASTROINTESTINAL: Negative for diarrhea/constipation GENITOURINARY: Negative for dysuria, + incontinence MUSCULOSKELETAL:+ lumbar stenosis NEUROLOGICAL: +dysarthria, dysphagia, left sided hemiplegia HEMATOLOGICAL: Negative SKIN: no rash PSYCHIATRIC: Unremarkable All other review of systems found to be negative. PHYSICAL EXAMINATION: VITAL SIGNS: Please see below. GENERAL: Pleasant and cooperative. No acute distress. HEENT: PERRL. Extraocular movements intact. Clear conjunctiva, left sided facial droop CARDIOVASCULAR: Regular rate and rhythm. No murmurs, rubs, or gallops LUNGS: Clear to auscultation bilaterally. No wheezes. No rhonchi ABDOMEN: Soft, nontender, nondistended. Positive bowel sounds. Normal active bowel sounds NEUROLOGICAL: Alert and oriented times three. Cranial nerves II through XII grossly intact except CN VII, Sensation grossly intact except extinction to touch in the RUE EXTREMITIES: 5\5 strength left upper extremities. 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 4/5 strength in left lower extremity. SKIN: intact ASSESSMENT:73-year-old M with past medical history of HTN, HLD, and low back pain who presents status post hemorrhagic stroke. PLAN: 1. Rehab: OT, PT, STEWARD/STEWARDESS CHIEF CARGO VESSEL for dysphagia- MBS 11/06/18, ok drink thins, and upgraded per STEWARD/STEWARDESS CHIEF CARGO VESSEL to regular diet, inconsistent performance in OT and PT, 2. 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 CArdio: pmh HTN and HLD- c/u statin, BP meds changed to hydralazine prn and Norvasc to avoid kidney injury, s/p Lisinopril- and HCTZ- medicine recs appreci ated -per [facility] records ECHO ordered, however unable to view report in their EMR, will f/u on these results 4. Pain: Tylenopl prn 5. : admission Ua and Ucx negative, monitor PVRs- needs f/u outpatient urology for incontinence, per patient he has had urgency and incontinence for 2 years and ahd his prostate checked once, c/u Flomax and monitor- improving -repeat UA negative 6. GI ppx: c/u protonix 7. DVT ppx: will hold heparin for now, use TEDs, admission Doppler negative for DVTs 8. Skin: Balmex to sacrum 9. Insomnia: c/u Trazodone 100mg qHS 10. Renal: DARRIAN resolved with fluids and better po intake 11. Pain: right sided mireya pain, will trial menthol salicylate to neck instead as lidoderm patch keeps falling off 9. Dispo: slowly progressing towards goal, however will not have help at home, so recommend SNF at this time until he is more steady on is feet with better insight into his deficits. Allergies Coded Allergies: codeine (Verified Adverse Reaction, Unknown, nausea, 11/01/18) Vital Signs Vital Signs Date Time Temp Pulse Resp B/P (MAP) Pulse Ox O2 Delivery O2 Flow Rate FiO2 11/19/18 09:25 59 158/88 11/19/18 06:00 97.7 18 90 Laboratory Data CBC/BMP Laboratory Tests 11/19/18 08:04 Red Blood Count 4.37, Mean Corpuscular Volume 95.2, Mean Corpuscular Hemoglobin 32.3, Mean Corpuscular Hemoglobin Concent 33.9, Red Cell Distribution Width 11.5, Calcium Level 9.5 Labs 24H Laboratory Tests 2 11/19/18 08:04: Nucleated Red Blood Cells % (auto) 0.0, Anion Gap 5L, Glomerular Filtration Rate > 60.0, Blood Urea Nitrogen 18, Creatinine 1.14, Sodium Level 142, Potassium Level 3.8, Chloride Level 111H, Carbon Dioxide Level 26, Calcium Level 9.5 Current Medications Current Medications Current Medications Acetaminophen (Tylenol Tab) 650 mg Q4HP PRN PO fever/MILD PAIN (PS 1-4) Last administered on 11/18/18at 09:11; Start 11/05/18 at 14:15 Al Hydrox/Mg Hydrox/Simethicone (Mylanta) 30 ml Q4HP PRN PO DYSPEPSIA; Start 11/05/18 at 14:15 Amlodipine Besylate (Norvasc) 5 mg DAILY PO Last administered on 11/08/18at 09:36; Start 11/07/18 at 09:00; Stop 11/09/18 at 07:03; Status DC Amlodipine Besylate (Norvasc) 10 mg DAILY PO Last administered on 11/19/18 09:25; Start 11/09/18 at 09:00 Betamethasone/ Clotrimazole (Lotrisone Cream) TO LEFT UPPER EAR QHS TOP ; Start 11/05/18 at 21:00; Stop 11/05/18 at 21:00; Status DC Bisacodyl (Dulcolax Suppository) 10 mg DAILYPRN PRN [place] CONSTIPATION; Start 11/05/18 at 14:15 Bisacodyl (Dulcolax Tab) 5 mg QHS PO Last administered on 11/06/18at 20:05; Start 11/05/18 at 21:00; Stop 11/09/18 at 11:11; Status DC Docusate Sodium (Colace) 100 mg BID PO Last administered on 11/08/18at 09:36; Start 11/05/18 at 21:00; Stop 11/09/18 at 11:11; Status DC Fluoxetine HCl (PROzac) 20 mg DAILY PO Last administered on 11/19/18 09:25; Start 11/05/18 at 15:00 Home Med (Med Rec Complete!) ASDIRECTED XX ; Start 11/05/18 at 15:00; Stop 11/05/18 at 15:01; Status DC Hydralazine HCl (Apresoline) 25 mg Q6H PRN PO Hypertension Last administered on 11/17/18at 20:52; Start 11/07/18 at 08:30 Hydrochlorothiazide (Hydrodiuril) 50 mg DAILY PO Last administered on 11/06/18at 08:37; Start 11/06/18 at 09:00; Stop 11/07/18 at 08:18; Status DC Lidocaine (Lidoderm Patch) 1 patch DAILY TD ; Start 11/19/18 at 09:00 Lidocaine (Lidoderm Patch) 1 patch QHS TD Last administered on 11/17/18at 20:52; Start 11/07/18 at 21:00; Stop 11/18/18 at 17:43; Status DC Lisinopril (Prinivil) 20 mg BID PO Last administered on 11/06/18 20:08; Start 11/05/18 at 21:00; Stop 11/07/18 at 08:18; Status DC Lisinopril (Prinivil) 20 mg DAILY PO Last administered on 11/19/18 09:26; Start 11/10/18 at 09:00 Loperamide HCl (Imodium) 2 mg ASDIRECTED PRN PO DIARRHEA; Start 11/09/18 at 11:15 Magnesium Hydroxide (Milk Of Magnesia) 30 ml DAILYPRN PRN PO CONSTIPATION; Start 11/05/18 at 14:15 Menthol/Methyl Salicylate (Bengay Cream) apply to bilateral up... TID TOP Last administered on 11/19/18 09:26; Start 11/18/18 at 21:00 Non-Formulary Medication ( See Comment Field Below ) REMOVE LIDODERM PATCH DAILY@0900 XX Last administered on 11/18/18 09:00; Start 11/08/18 at 09:00; Stop 11/18/18 at 17:48; Status DC Non-Formulary Medication ( See Comment Field Below ) REMOVE LIDODERM PATCH DAILY@2100 XX ; Start 11/19/18 at 21:00 Pantoprazole Sodium (Protonix) 40 mg DAILY PO Last administered on 11/19/18 09:25; Start 11/05/18 at 15:00 Patient Own Medication (Patient'S Own Med) clotrimazole betamethasone 0.05% ap... QHS XX ; Start 11/05/18 at 21:00; Stop 11/05/18 at 21:00; Status DC Simvastatin (Zocor) 20 mg QHS PO Last administered on 11/18/18at 20:40; Start 11/05/18 at 21:00 Sodium Chloride 1,000 ml @ 100 mls/hr Q10H IV Last administered on 11/08/18at 04:39; Start 11/07/18 at 08:30; Stop 11/08/18 at 11:36; Status DC Tamsulosin HCl (Flomax) 0.4 mg DAILY PO Last administered on 11/19/18 09:25; Start 11/12/18 at 09:00 Trazodone HCl (Desyrel) 25 mg QHS PO Last administered on 11/06/18at 20:04; Start 11/06/18 at 21:00; Stop 11/07/18 at 10:58; Status DC Trazodone HCl (Desyrel) 25 mg QHSP PRN PO INSOMNIA; Start 11/05/18 at 14:15; Stop 11/06/18 at 12:30; Status DC Trazodone HCl (Desyrel) 25 mg QHSP PRN PO SLEEP; Start 11/06/18 at 16:45; Stop 11/12/18 at 14:26; Status DC Trazodone HCl (Desyrel) 50 mg QHS PO Last administered on 11/11/18at 20:32; Start 11/07/18 at 21:00; Stop 11/12/18 at 14:26; Status DC Trazodone HCl (Desyrel) 100 mg QHS PO Last administered on 11/18/18at 20:40; Start 11/12/18 at 21:00 A-FIB/CHADSVASC A-FIB History Current/History of A-Fib/PAF?: No ADDISON URRUTIA MD November 19, 2018 11:28
--- NOTE | 2018-11-19 11:28 | IPNPDOC ---
PM&R Progress Note DATE OF SERVICE: November 19, 2018 Cartridge Gauger Progress Note Subjective: Patient seen in room with daughter, states his urination is better and he had a bowel movement this morning. REVIEW OF SYSTEMS: The following is a completed review of systems and has been reviewed. Review of systems otherwise unremarkable. PAIN: Patient self reports no pain EYES: Negative for vision changes EARS, NOSE, & THROAT:+dysphagia (improving) CARDIOVASCULAR: denies chest pain or palpitations PULMONARY: Negative. Denies shortness of breath GASTROINTESTINAL: Negative for diarrhea/constipation GENITOURINARY: Negative for dysuria, + incontinence MUSCULOSKELETAL:+ lumbar stenosis NEUROLOGICAL: +dysarthria, dysphagia, left sided hemiplegia HEMATOLOGICAL: Negative SKIN: no rash PSYCHIATRIC: Unremarkable All other review of systems found to be negative. PHYSICAL EXAMINATION: VITAL SIGNS: Please see below. GENERAL: Pleasant and cooperative. No acute distress. HEENT: PERRL. Extraocular movements intact. Clear conjunctiva, left sided facial droop CARDIOVASCULAR: Regular rate and rhythm. No murmurs, rubs, or gallops LUNGS: Clear to auscultation bilaterally. No wheezes. No rhonchi ABDOMEN: Soft, nontender, nondistended. Positive bowel sounds. Normal active bowel sounds NEUROLOGICAL: Alert and oriented times three. Cranial nerves II through XII grossly intact except CN VII, Sensation grossly intact except extinction to touch in the RUE EXTREMITIES: 5\5 strength left upper extremities. 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 4/5 strength in left lower extremity. SKIN: intact ASSESSMENT:73-year-old M with past medical history of HTN, HLD, and low back pain who presents status post hemorrhagic stroke. PLAN: 1. Rehab: OT, PT, AIRPLANE RENTAL CLERK for dysphagia- MBS 11/06/18, ok drink thins, and upgraded per AIRPLANE RENTAL CLERK to regular diet, inconsistent performance in OT and PT due to cognitive deficits 2. 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 CArdio: pmh HTN and HLD- c/u statin, BP meds changed to hydralazine prn and Norvasc to avoid kidney injury, s/p Lisinopril- and HCTZ- medicine recs appreciated -per [facility] records ECHO ordered, however unable to view report in their EMR, will f/u on these results 4. Pain: Tylenopl prn 5. : admission Ua and Ucx negative, monitor PVRs- needs f/u outpatient urology for incontinence, per patient he has had urgency and incontinence for 2 years and ahd his prostate checked once, c/u Flomax and monitor- improving -repeat UA negative 6. GI ppx: c/u protonix 7. DVT ppx: will hold heparin for now, use TEDs, admission Doppler negative for DVTs 8. Skin: Balmex to sacrum 9. Insomnia: c/u Trazodone 100mg qHS-sleep improving 10. Renal: DARRIAN resolved with fluids and better po intake 11. Pain: right sided neck pain, will trial menthol salicylate -lidoderm patch to low back 9. Dispo: slowly progressing towards goal, however will not have help at home, so recommend SNF at this time until he is more steady on is feet with better insight into his deficits, insurance appeal underway Allergies Coded Allergies: codeine (Verified Adverse Reaction, Unknown, nausea, 11/01/18) Vital Signs Vital Signs Date Time Temp Pulse Resp B/P (MAP) Pulse Ox O2 Delivery O2 Flow Rate FiO2 11/19/18 09:25 59 158/88 11/19/18 06:00 97.7 18 90 Laboratory Data CBC/BMP Laboratory Tests 11/19/18 08:04 Red Blood Count 4.37, Mean Corpuscular Volume 95.2, Mean Corpuscular Hemoglobin 32.3, Mean Corpuscular Hemoglobin Concent 33.9, Red Cell Distribution Width 11.5, Calcium Level 9.5 Labs 24H Laboratory Tests 2 11/19/18 08:04: Nucleated Red Blood Cells % (auto) 0.0, Anion Gap 5L, Glomerular Filtration Rate > 60.0, Blood Urea Nitrogen 18, Creatinine 1.14, Sodium Level 142, Potassium Level 3.8, Chloride Level 111H, Carbon Dioxide Level 26, Calcium Level 9.5 Current Medications Current Medications Current Medications Acetaminophen (Tylenol Tab) 650 mg Q4HP PRN PO fever/MILD PAIN (PS 1-4) Last administered on 11/18/18at 09:11; Start 11/05/18 at 14:15 Al Hydrox/Mg Hydrox/Simethicone (Mylanta) 30 ml Q4HP PRN PO DYSPEPSIA; Start 11/05/18 at 14:15 Amlodipine Besylate (Norvasc) 5 mg DAILY PO Last administered on 11/08/18 09:36; Start 11/07/18 at 09:00; Stop 11/09/18 at 07:03; Status DC Amlodipine Besylate (Norvasc) 10 mg DAILY PO Last administered on 11/19/18 09:25; Start 11/09/18 at 09:00 Betamethasone/ Clotrimazole (Lotrisone Cream) TO LEFT UPPER EAR QHS TOP ; Start 11/05/18 at 21:00; Stop 11/05/18 at 21:00; Status DC Bisacodyl (Dulcolax Suppository) 10 mg DAILYPRN PRN [place] CONSTIPATION; Start 11/05/18 at 14:15 Bisacodyl (Dulcolax Tab) 5 mg QHS PO Last administered on 11/06/18at 20:05; Start 11/05/18 at 21:00; Stop 11/09/18 at 11:11; Status DC Docusate Sodium (Colace) 100 mg BID PO Last administered on 11/08/18 09:36; Start 11/05/18 at 21:00; Stop 11/09/18 at 11:11; Status DC Fluoxetine HCl (PROzac) 20 mg DAILY PO Last administered on 11/19/18at 09:25; Start 11/05/18 at 15:00 Home Med (Med Rec Complete!) ASDIRECTED XX ; Start 11/05/18 at 15:00; Stop 11/05/18 at 15:01; Status DC Hydralazine HCl (Apresoline) 25 mg Q6H PRN PO Hypertension Last administered on 11/17/18at 20:52; Start 11/07/18 at 08:30 Hydrochlorothiazide (Hydrodiuril) 50 mg DAILY PO Last administered on 11/06/18at 08:37; Start 11/06/18 at 09:00; Stop 11/07/18 at 08:18; Status DC Lidocaine (Lidoderm Patch) 1 patch DAILY TD ; Start 11/19/18 at 09:00 Lidocaine (Lidoderm Patch) 1 patch QHS TD Last administered on 11/17/18 20:52; Start 11/07/18 at 21:00; Stop 11/18/18 at 17:43; Status DC Lisinopril (Prinivil) 20 mg BID PO Last administered on 11/06/18at 20:08; Start 11/05/18 at 21:00; Stop 11/07/18 at 08:18; Status DC Lisinopril (Prinivil) 20 mg DAILY PO Last administered on 11/19/18 09:26; Start 11/10/18 at 09:00 Loperamide HCl (Imodium) 2 mg ASDIRECTED PRN PO DIARRHEA; Start 11/09/18 at 11:15 Magnesium Hydroxide (Milk Of Magnesia) 30 ml DAILYPRN PRN PO CONSTIPATION; Start 11/05/18 at 14:15 Menthol/Methyl Salicylate (Bengay Cream) apply to bilateral up... TID TOP Last administered on 11/19/18 09:26; Start 11/18/18 at 21:00 Non-Formulary Medication ( See Comment Field Below ) REMOVE LIDODERM PATCH DAILY@0900 XX Last administered on 11/18/18 09:00; Start 11/08/18 at 09:00; Stop 11/18/18 at 17:48; Status DC Non-Formulary Medication ( See Comment Field Below ) REMOVE LIDODERM PATCH DAILY@2100 XX ; Start 11/19/18 at 21:00 Pantoprazole Sodium (Protonix) 40 mg DAILY PO Last administered on 11/19/18at 09:25; Start 11/05/18 at 15:00 Patient Own Medication (Patient'S Own Med) clotrimazole betamethasone 0.05% ap... QHS XX ; Start 11/05/18 at 21:00; Stop 11/05/18 at 21:00; Status DC Simvastatin (Zocor) 20 mg QHS PO Last administered on 11/18/18at 20:40; Start 11/05/18 at 21:00 Sodium Chloride 1,000 ml @ 100 mls/hr Q10H IV Last administered on 11/08/18at 04:39; Start 11/07/18 at 08:30; Stop 11/08/18 at 11:36; Status DC Tamsulosin HCl (Flomax) 0.4 mg DAILY PO Last administered on 11/19/18 09:25; Start 11/12/18 at 09:00 Trazodone HCl (Desyrel) 25 mg QHS PO Last administered on 11/06/18at 20:04; Start 11/06/18 at 21:00; Stop 11/07/18 at 10:58; Status DC Trazodone HCl (Desyrel) 25 mg QHSP PRN PO INSOMNIA; Start 11/05/18 at 14:15; Stop 11/06/18 at 12:30; Status DC Trazodone HCl (Desyrel) 25 mg QHSP PRN PO SLEEP; Start 11/06/18 at 16:45; Stop 11/12/18 at 14:26; Status DC Trazodone HCl (Desyrel) 50 mg QHS PO Last administered on 11/11/18at 20:32; Start 11/07/18 at 21:00; Stop 11/12/18 at 14:26; Status DC Trazodone HCl (Desyrel) 100 mg QHS PO Last administered on 11/18/18at 20:40; Start 11/12/18 at 21:00 A-FIB/CHADSVASC A-FIB History Current/History of A-Fib/PAF?: No Current Oral Anticoagulant The: No ADDISON URRUTIA MD November 19, 2018 11:28
[2018-11-19 14:00] VITALS: BP 162/82
[2018-11-19 20:00] VITALS: BP 132/60
[2018-11-19] MEDS: SIMVASTATIN 20 MG TAB PO SCH (20:07)
[2018-11-19] MEDS: traZODone 100 MG TAB PO SCH (20:07)
[2018-11-19] MEDS: **NOTE PATIENT COMMENT** MISC XX SCH (20:08)
[2018-11-19] MEDS: ACETAMINOPHEN TAB 650MG DOSE (2X325MG) PO PRN (20:08)
[2018-11-20 06:00] VITALS: BP 159/79
[2018-11-20] MEDS: FLUoxetine 20 MG CAP PO SCH (08:21)
[2018-11-20] MEDS: LISINOPRIL 20 MG TAB PO SCH (08:21)
[2018-11-20] MEDS: PANTOPRAZOLE 40MG TAB (PROTONIX) PO SCH (08:21)
[2018-11-20] MEDS: TAMSULOSIN 0.4 MG CAP PO SCH (08:21)
[2018-11-20] MEDS: amLODIPine 10 MG TAB PO SCH (08:21)
[2018-11-20] MEDS: LIDOCAINE 5% (LIDODERM) PATCH TD SCH (08:22)
[2018-11-20] MEDS: ANALGESIC BALM CRM 120 GM TOP SCH ×3 (08:22→20:34)
--- NOTE | 2018-11-20 11:11 | IPNPDOC ---
PM&R Progress Note DATE OF SERVICE: November 20, 2018 Social Work Therapist Progress Note Subjective: Patient seen in room complaining his back hurts. REVIEW OF SYSTEMS: The following is a completed review of systems and has been reviewed. Review of systems otherwise unremarkable. PAIN: Patient self reports no pain EYES: Negative for vision changes EARS, NOSE, & THROAT:+dysphagia (improving) CARDIOVASCULAR: denies chest pain or palpitations PULMONARY: Negative. Denies shortness of breath GASTROINTESTINAL: Negative for diarrhea/constipation GENITOURINARY: Negative for dysuria, + incontinence MUSCULOSKELETAL:+ lumbar stenosis NEUROLOGICAL: +dysarthria, dysphagia, left sided hemiplegia HEMATOLOGICAL: Negative SKIN: no rash PSYCHIATRIC: Unremarkable All other review of systems found to be negative. PHYSICAL EXAMINATION: VITAL SIGNS: Please see below. GENERAL: Pleasant and cooperative. No acute distress. HEENT: PERRL. Extraocular movements intact. Clear conjunctiva, left sided facial droop CARDIOVASCULAR: Regular rate and rhythm. No murmurs, rubs, or gallops LUNGS: Clear to auscultation bilaterally. No wheezes. No rhonchi ABDOMEN: Soft, nontender, nondistended. Positive bowel sounds. Normal active bowel sounds NEUROLOGICAL: Alert and oriented times three. Cranial nerves II through XII grossly intact except CN VII, Sensation grossly intact except extinction to touch in the RUE EXTREMITIES: 5\5 strength left upper extremities. 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 4/5 strength in left lower extremity. SKIN: intact ASSESSMENT:73-year-old M with past medical history of HTN, HLD, and low back pain who presents status post hemorrhagic stroke. PLAN: 1. Rehab: OT, PT, SEASONAL WAREHOUSE ASSOCIATE for dysphagia- MBS 11/06/18, ok drink thins, and upgraded per SEASONAL WAREHOUSE ASSOCIATE to regular diet, inconsistent performance in OT and PT due to cognitive deficits 2. 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 CArdio: pmh HTN and HLD- c/u statin, BP meds changed to hydralazine prn and Norvasc to avoid kidney injury, s/p Lisinopril- and HCTZ- medicine recs appreciated -per [facility] records ECHO ordered, however unable to view report in their EMR, will f/u on these results 4. Pain: Tylenopl prn 5. : admission Ua and Ucx negative, monitor PVRs- needs f/u outpatient urology for incontinence, per patient he has had urgency and incontinence for 2 years an d ahd his prostate checked once, c/u Flomax and monitor- improving -repeat UA negative 6. GI ppx: c/u protonix 7. DVT ppx: will hold heparin for now, use TEDs, admission Doppler negative for DVTs 8. Skin: Balmex to sacrum 9. Insomnia: c/u Trazodone 100mg qHS-sleep improving 10. Renal: DARRIAN resolved with fluids and better po intake 11. Pain: right sided neck pain, will trial menthol salicylate -lidoderm patch to low back 9. Dispo: slowly progressing towards goal, however will not have help at home, so recommend SNF at this time until he is more steady on is feet with better insight into his deficits, insurance appeal underway Allergies Coded Allergies: codeine (Verified Adverse Reaction, Unknown, nausea, 11/01/18) Vital Signs Vital Signs Date Time Temp Pulse Resp B/P (MAP) Pulse Ox O2 Delivery O2 Flow Rate FiO2 11/20/18 08:21 159/79 11/20/18 06:00 97.7 52 18 95 Current Medications Current Medications Current Medications Acetaminophen (Tylenol Tab) 650 mg Q4HP PRN PO fever/MILD PAIN (PS 1-4) Last administered on 11/19/18at 20:08; Start 11/05/18 at 14:15 Al Hydrox/Mg Hydrox/Simethicone (Mylanta) 30 ml Q4HP PRN PO DYSPEPSIA; Start 11/05/18 at 14:15 Amlodipine Besylate (Norvasc) 5 mg DAILY PO Last administered on 11/08/18at 09:36; Start 11/07/18 at 09:00; Stop 11/09/18 at 07:03; Status DC Amlodipine Besylate (Norvasc) 10 mg DAILY PO Last administered on 11/20/18at 08:21; Start 11/09/18 at 09:00 Betamethasone/ Clotrimazole (Lotrisone Cream) TO LEFT UPPER EAR QHS TOP ; Start 11/05/18 at 21:00; Stop 11/05/18 at 21:00; Status DC Bisacodyl (Dulcolax Suppository) 10 mg DAILYPRN PRN [place] CONSTIPATION; Start 11/05/18 at 14:15 Bisacodyl (Dulcolax Tab) 5 mg QHS PO Last administered on 11/06/18 20:05; Start 11/05/18 at 21:00; Stop 11/09/18 at 11:11; Status DC Docusate Sodium (Colace) 100 mg BID PO Last administered on 11/08/18at 09:36; Start 11/05/18 at 21:00; Stop 11/09/18 at 11:11; Status DC Fluoxetine HCl (PROzac) 20 mg DAILY PO Last administered on 11/20/18 08:21; Start 11/05/18 at 15:00 Home Med (Med Rec Complete!) ASDIRECTED XX ; Start 11/05/18 at 15:00; Stop 11/05/18 at 15:01; Status DC Hydralazine HCl (Apresoline) 25 mg Q6H PRN PO Hypertension Last administered on 11/17/18 20:52; Start 11/07/18 at 08:30 Hydrochlorothiazide (Hydrodiuril) 50 mg DAILY PO Last administered on 11/06/18 08:37; Start 11/06/18 at 09:00; Stop 11/07/18 at 08:18; Status DC Lidocaine (Lidoderm Patch) 1 patch DAILY TD ; Start 11/19/18 at 09:00 Lidocaine (Lidoderm Patch) 1 patch QHS TD Last administered on 11/17/18at 20:52; Start 11/07/18 at 21:00; Stop 11/18/18 at 17:43; Status DC Lisinopril (Prinivil) 20 mg BID PO Last administered on 11/06/18at 20:08; Start 11/05/18 at 21:00; Stop 11/07/18 at 08:18; Status DC Lisinopril (Prinivil) 20 mg DAILY PO Last administered on 11/20/18 08:21; Start 11/10/18 at 09:00 Loperamide HCl (Imodium) 2 mg ASDIRECTED PRN PO DIARRHEA; Start 11/09/18 at 11 :15 Magnesium Hydroxide (Milk Of Magnesia) 30 ml DAILYPRN PRN PO CONSTIPATION; Start 11/05/18 at 14:15 Menthol/Methyl Salicylate (Bengay Cream) apply to bilateral up... TID TOP Last administered on 11/20/18 08:22; Start 11/18/18 at 21:00 Non-Formulary Medication ( See Comment Field Below ) REMOVE LIDODERM PATCH DAILY@0900 XX Last administered on 11/18/18at 09:00; Start 11/08/18 at 09:00; Stop 11/18/18 at 17:48; Status DC Non-Formulary Medication ( See Comment Field Below ) REMOVE LIDODERM PATCH D AILY@2100 XX ; Start 11/19/18 at 21:00 Pantoprazole Sodium (Protonix) 40 mg DAILY PO Last administered on 11/20/18 08:21; Start 11/05/18 at 15:00 Patient Own Medication (Patient'S Own Med) clotrimazole betamethasone 0.05% ap... QHS XX ; Start 11/05/18 at 21:00; Stop 11/05/18 at 21:00; Status DC Simvastatin (Zocor) 20 mg QHS PO Last administered on 11/19/18at 20:07; Start 11/05/18 at 21:00 Sodium Chloride 1,000 ml @ 100 mls/hr Q10H IV Last administered on 11/08/18at 04:39; Start 11/07/18 at 08:30; Stop 11/08/18 at 11:36; Status DC Tamsulosin HCl (Flomax) 0.4 mg DAILY PO Last administered on 11/20/18at 08:21; Start 11/12/18 at 09:00 Trazodone HCl (Desyrel) 25 mg QHS PO Last administered on 11/06/18at 20:04; Start 11/06/18 at 21:00; Stop 11/07/18 at 10:58; Status DC Trazodone HCl (Desyrel) 25 mg QHSP PRN PO INSOMNIA; Start 11/05/18 at 14:15; Stop 11/06/18 at 12:30; Status DC Trazodone HCl (Desyrel) 25 mg QHSP PRN PO SLEEP; Start 11/06/18 at 16:45; Stop 11/12/18 at 14:26; Status DC Trazodone HCl (Desyrel) 50 mg QHS PO Last administered on 11/11/18at 20:32; Start 11/07/18 at 21:00; Stop 11/12/18 at 14:26; Status DC Trazodone HCl (Desyrel) 100 mg QHS PO Last administered on 11/19/18at 20:07; Start 11/12/18 at 21:00 A-FIB/CHADSVASC A-FIB History Current/History of A-Fib/PAF?: No ADDISON URRUTIA MD November 20, 2018 11:11
[2018-11-20 14:00] VITALS: BP 188/80
[2018-11-20] MEDS: **hydrALAZINE HCL** 25 MG TAB PO SCH ×2 (16:00→20:33)
[2018-11-20] MEDS ORDERED: CYCLOBENZAPRINE 10 MG TAB PO PRN (17:15)
--- NOTE | 2018-11-20 17:27 | IPNPDOC ---
Subjective Date Seen The patient was seen on 11/20/18. Subjective Chief Complaint/HPI 73-year-old male, past medical history significant for obesity, hypertension, hyperlipidemia, who unfortunately 2018, developed sudden onset of dysarthria, left-sided facial droop and weakness. Patient took aspirin and presented to the emergency room where CAT scan showed 4.2 x 1.8 cm acute right ganglia hemorrhage Events since last encounter Patient complains of significant low back pain which has been impairing his participation in physical and occupational therapy. Pain is nonradiating. Otherwise, denies any chills, nausea, abdominal pain, shortness of breath or chest pain Objective Physical Examination Other physical findings General: Morbidly obese elderly male, in bed, in no acute distress Skin: Warm, dry, intact. Cardiovascular: Regular rate and rhythm, no MRG, no jugular venous distention, no edema. Respiratory:CTAB, no accessory muscle use noted. 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 -Target systolic blood pressure less than 140 (5) Hyperlipidemia Discussed With: Health Care Proxy Problem Text: -Continue statin therapy (6) Anxiety and depression Status: Chronic Problem Text: -Continue fluoxetine and trazodone (7) Low back pain Problem Text: -Start on low-dose Neurontin and muscle relaxer Plan/VTE VTE Prophylaxis Ordered?: Yes VTE Exclusion Pharmacological: Hemorrhage VS, I&O, 24H, Fishbone Vital Signs/I&O Vital Signs Date Time Temp Pulse Resp B/P (MAP) Pulse Ox O2 Delivery O2 Flow Rate FiO2 11/20/18 16:00 180/88 11/20/18 14:00 98.3 60 18 93 I&O- Last 24 Hours up to 6 AM 11/20/18 06:00 Intake Total 660 ml Output Total 0 ml Balance 660 ml ERIN KUMAR TURNING LATHE TENDER November 20, 2018 17:27
[2018-11-20 20:00] VITALS: BP 147/70
[2018-11-20] MEDS: traZODone 100 MG TAB PO SCH (20:33)
[2018-11-20] MEDS: GABAPENTIN 100 MG CAP PO SCH (20:34)
[2018-11-20] MEDS: **NOTE PATIENT COMMENT** MISC XX SCH (20:34)
[2018-11-20] MEDS: SIMVASTATIN 20 MG TAB PO SCH (20:34)
[2018-11-21 06:00] VITALS: BP 141/67
[2018-11-21] MEDS: LIDOCAINE 5% (LIDODERM) PATCH TD SCH (09:00)
[2018-11-21] MEDS: ANALGESIC BALM CRM 120 GM TOP SCH ×3 (09:00→21:48)
--- NOTE | 2018-11-21 10:07 | IPNPDOC ---
Subjective Date Seen The patient was seen on 11/21/18. Subjective Chief Complaint/HPI 73-year-old male, past medical history significant for obesity, hypertension, hyperlipidemia, who unfortunately developed sudden onset of dysarthria, left- sided facial droop and weakness. Patient took aspirin and presented to the em ergency room where CAT scan showed 4.2 x 1.8 cm acute right ganglia hemorrhage Events since last encounter Pain is much improved today. Complains of straining with bowel movements. Requesting stool softener to help with that. Has no other concerns Objective Physical Examination Other physical findings General: Morbidly obese elderly male, in bed, in no acute distress Skin: Warm, dry, intact. Cardiovascular: Regular rate and rhythm, no MRG, no jugular venous distention, no edema. Respiratory:CTAB, no accessory muscle use noted. Abdomen: Bowel sounds +, no tenderness, no distention Musculoskeletal: Left hemiparesis No joint deformities, Neurologic: Left hemiparesis, facial droop, alert and oriented 3 Psychiatric: Appropriate mood and affect, no anxiety or agitation. A-FIB/CHADSVASC A-FIB History Current/History of A-Fib/PAF?: No Current Oral Anticoagulant The: No Assessment /Plan Problems (1) Hemorrhagic stroke Status: Acute Problem Specific Plan: Consult Specialist Problem Text: -Acute right basal ganglia hemorrhagic infarct with left neurol ogic deficits -Continued in rehabilitation unit for mobilization and strengthening -neurologic deficits keep improving (2) Cervicalgia Status: Acute Problem Text: -stable and controlled with use of lidocaine patch -No further complaints -Continue lidocaine patch (3) Hemiplegia of left dominant side as late effect of cerebral infarction Status: Acute Response to Treatment: Improving Problem Text: -Improving with physical and occupational therapy -Management per primary team (4) HTN (hypertension) Status: Chronic Problem Text: -still uncontrolled -Add beta susanne current regimen -Continue blood pressure monitoring (5) Hyperlipidemia Discussed With: Health Care Proxy Problem Text: -Continue statin therapy (6) Anxiety and depression Status: Chronic Problem Text: -Continue fluoxetine and trazodone (7) Low back pain Problem Text: -Continue Neurontin and muscle relaxer -Patient reports improvement and relief of symptoms Plan/VTE VTE Prophylaxis Ordered?: Yes VTE Exclusion Pharmacological: Hemorrhage VS, I&O, 24H, Fishbone Vital Signs/I&O Vital Signs Date Time Temp Pulse Resp B/P (MAP) Pulse Ox O2 Delivery O2 Flow Rate FiO2 11/21/18 06:00 97.9 65 18 141/67 (51) 93 I&O- Last 24 Hours up to 6 AM 11/21/18 06:00 Intake Total 1560 ml Output Total 0 ml Balance 1560 ml ERIN KUMAR MATH TEACHER November 21, 2018 10:07
[2018-11-21] MEDS: DOCUSATE SODIUM 100 MG CAP PO SCH (10:47)
[2018-11-21] MEDS: amLODIPine 10 MG TAB PO SCH (10:47)
[2018-11-21] MEDS: LISINOPRIL 20 MG TAB PO SCH (10:48)
[2018-11-21] MEDS: GABAPENTIN 100 MG CAP PO SCH ×3 (10:48→21:48)
[2018-11-21] MEDS: TAMSULOSIN 0.4 MG CAP PO SCH (10:48)
[2018-11-21] MEDS: **hydrALAZINE HCL** 25 MG TAB PO SCH ×3 (10:48→21:49)
[2018-11-21] MEDS: PANTOPRAZOLE 40MG TAB (PROTONIX) PO SCH (10:48)
[2018-11-21] MEDS: FLUoxetine 20 MG CAP PO SCH (10:48)
--- NOTE | 2018-11-21 13:55 | IPNPDOC ---
PM&R Progress Note DATE OF SERVICE: November 21, 2018 Paper Deliverer Progress Note Subjective: Patient seen in bed stating his back feel better and he slept well. He was encouraged to seek out family/neighbor help to provide him with care during the day when he returns home. REVIEW OF SYSTEMS: The following is a completed review of systems and has been reviewed. Review of systems otherwise unremarkable. PAIN: Patient self reports no pain EYES: Negative for vision changes EARS, NOSE, & THROAT:+dysphagia (improving) CARDIOVASCULAR: denies chest pain or palpitations PULMONARY: Negative. Denies shortness of breath GASTROINTESTINAL: Negative for diarrhea/constipation GENITOURINARY: Negative for dysuria, + incontinence MUSCULOSKELETAL:+ lumbar stenosis NEUROLOGICAL: +dysarthria, dysphagia, left sided hemiplegia HEMATOLOGICAL: Negative SKIN: no rash PSYCHIATRIC: Unremarkable All other review of systems found to be negative. PHYSICAL EXAMINATION: VITAL SIGNS: Please see below. GENERAL: Pleasant and cooperative. No acute distress. HEENT: PERRL. Extraocular movements intact. Clear conjunctiva, left sided facial droop CARDIOVASCULAR: Regular rate and rhythm. No murmurs, rubs, or gallops LUNGS: Clear to auscultation bilaterally. No wheezes. No rhonchi ABDOMEN: Soft, nontender, nondistended. Positive bowel sounds. Normal active bowel sounds NEUROLOGICAL: Alert and oriented times three. Cranial nerves II through XII grossly intact except CN VII, Sensation grossly intact except extinction to touch in the RUE EXTREMITIES: 5\5 strength left upper extremities. 3+/5 left elbow flexion/extension, wrist extension, mold inspector, 5\5 strength right lower extremity. 4/5 strength in left lower extremity. SKIN: intact ASSESSMENT:73-year-old M with past medical history of HTN, HLD, and low back pain who presents status post hemorrhagic stroke. PLAN: 1. Rehab: OT, PT, SHIFT SUPERINTENDENT for dysphagia- MBS 11/06/18, ok drink thins, and upgraded per SHIFT SUPERINTENDENT to regular diet, inconsistent performance in OT and PT due to cognitive deficits 2. 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 CArdio: pmh HTN and HLD- c/u statin, BP meds changed to hydralazine prn and Norvasc to avoid kidney injury, s/p Lisinopril- and HCTZ- medicine recs a ppreciated -per [facility] records ECHO ordered, however unable to view report in their EMR, will f/u on these results 4. Pain: Tylenopl prn 5. : admission Ua and Ucx negative, monitor PVRs- needs f/u outpatient urology for incontinence, per patient he has had urgency and incontinence for 2 years and had his prostate checked once, c/u Flomax and monitor- improving -repeat UA negative 6. GI ppx: c/u protonix 7. DVT ppx: will hold heparin for now, use TEDs, admission Doppler negative for DVTs 8. Skin: Balmex to sacrum 9. Insomnia: c/u Trazodone 100mg qHS-sleep improving 10. Renal: DARRIAN resolved with fluids and better po intake 11. Pain: right sided neck pain, c/u menthol salicylate -lidoderm patch to low back 9. Dispo: slowly progressing towards goal, however will not have help at home, so recommend SNF at this time until he is more steady on is feet with better insight into his deficits, insurance appeal underway Allergies Coded Allergies: codeine (Verified Adverse Reaction, Unknown, nausea, 11/01/18) Vital Signs Vital Signs Date Time Temp Pulse Resp B/P (MAP) Pulse Ox O2 Delivery O2 Flow Rate FiO2 11/21/18 10:47 73 141/67 11/21/18 06:00 97.9 18 93 Current Medications Current Medications Current Medications Acetaminophen (Tylenol Tab) 650 mg Q4HP PRN PO fever/MILD PAIN (PS 1-4) Last administered on 11/19/18at 20:08; Start 11/05/18 at 14:15 Al Hydrox/Mg Hydrox/Simethicone (Mylanta) 30 ml Q4HP PRN PO DYSPEPSIA; Start 11/05/18 at 14:15 Amlodipine Besylate (Norvasc) 5 mg DAILY PO Last administered on 11/08/18at 09:36; Start 11/07/18 at 09:00; Stop 11/09/18 at 07:03; Status DC Amlodipine Besylate (Norvasc) 10 mg DAILY PO Last administered on 11/21/18at 10:47; Start 11/09/18 at 09:00 Betamethasone/ Clotrimazole (Lotrisone Cream) TO LEFT UPPER EAR QHS TOP ; Start 11/05/18 at 21:00; Stop 11/05/18 at 21:00; Status DC Bisacodyl (Dulcolax Suppository) 10 mg DAILYPRN PRN [place] CONSTIPATION; Start 11/05/18 at 14:15 Bisacodyl (Dulcolax Tab) 5 mg QHS PO Last administered on 11/06/18at 20:05; Start 11/05/18 at 21:00; Stop 11/09/18 at 11:11; Status DC Cyclobenzaprine HCl (Flexeril) 10 mg Q8HP PRN PO SPASMS; Start 11/20/18 at 17:15 Docusate Sodium (Colace) 100 mg BID PO Last administered on 11/08/18at 09:36; Start 11/05/18 at 21:00; Stop 11/09/18 at 11:11; Status DC Docusate Sodium (Colace) 100 mg DAILY PO Last administered on 11/21/18at 10:47; Start 11/21/18 at 10:15 Fluoxetine HCl (PROzac) 20 mg DAILY PO Last administered on 11/21/18 10:48; Start 11/05/18 at 15:00 Gabapentin (Neurontin) 100 mg TID PO Last administered on 11/21/18at 10:48; Start 11/20/18 at 21:00 Home Med (Med Rec Complete!) ASDIRECTED XX ; Start 11/05/18 at 15:00; Stop 11/05/18 at 15:01; Status DC Hydralazine HCl (Apresoline) 25 mg Q6H PRN PO Hypertension Last administered on 11/17/18 20:52; Start 11/07/18 at 08:30; Stop 11/20/18 at 15:53; Status DC Hydralazine HCl (Apresoline) 25 mg TID PO Last administered on 11/21/18 10:48; Start 11/20/18 at 16:00 Hydrochlorothiazide (Hydrodiuril) 50 mg DAILY PO Last administered on 11/06/18at 08:37; Start 11/06/18 at 09:00; Stop 11/07/18 at 08:18; Status DC Lidocaine (Lidoderm Patch) 1 patch DAILY TD ; Start 11/19/18 at 09:00 Lidocaine (Lidoderm Patch) 1 patch QHS TD Last administered on 11/17/18 20:52; Start 11/07/18 at 21:00; Stop 11/18/18 at 17:43; Status DC Lisinopril (Prinivil) 20 mg BID PO Last administered on 11/06/18 20:08; Start 11/05/18 at 21:00; Stop 11/07/18 at 08:18; Status DC Lisinopril (Prinivil) 20 mg DAILY PO Last administered on 11/21/18 10:48; Start 11/10/18 at 09:00 Loperamide HCl (Imodium) 2 mg ASDIRECTED PRN PO DIARRHEA; Start 11/09/18 at 11:15 Magnesium Hydroxide (Milk Of Magnesia) 30 ml DAILYPRN PRN PO CONSTIPATION; Start 11/05/18 at 14:15 Menthol/Methyl Salicylate (Bengay Cream) apply to bilateral up... TID TOP Last administered on 11/21/18 09:00; Start 11/18/18 at 21:00 Non-Formulary Medication ( See Comment Field Below ) REMOVE LIDODERM PATCH DAILY@0900 XX Last administered on 11/18/18 09:00; Start 11/08/18 at 09:00; Stop 11/18/18 at 17:48; Status DC Non-Formulary Medication ( See Comment Field Below ) REMOVE LIDODERM PATCH DAILY@2100 XX ; Start 11/19/18 at 21:00 Pantoprazole Sodium (Protonix) 40 mg DAILY PO Last administered on 11/21/18 10:48; Start 11/05/18 at 15:00 Patient Own Medication (Patient'S Own Med) clotrimazole betamethasone 0.05% ap... QHS XX ; Start 11/05/18 at 21:00; Stop 11/05/18 at 21:00; Status DC Simvastatin (Zocor) 20 mg QHS PO Last administered on 11/20/18 20:34; Start 11/05/18 at 21:00 Sodium Chloride 1,000 ml @ 100 mls/hr Q10H IV Last administered on 11/08/18at 04:39; Start 11/07/18 at 08:30; Stop 11/08/18 at 11:36; Status DC Tamsulosin HCl (Flomax) 0.4 mg DAILY PO Last administered on 11/21/18at 10:48; Start 11/12/18 at 09:00 Trazodone HCl (Desyrel) 25 mg QHS PO Last administered on 11/06/18at 20:04; Start 11/06/18 at 21:00; Stop 11/07/18 at 10:58; Status DC Trazodone HCl (Desyrel) 25 mg QHSP PRN PO INSOMNIA; Start 11/05/18 at 14:15; Stop 11/06/18 at 12:30; Status DC Trazodone HCl (Desyrel) 25 mg QHSP PRN PO SLEEP; Start 11/06/18 at 16:45; Stop 11/12/18 at 14:26; Status DC Trazodone HCl (Desyrel) 50 mg QHS PO Last administered on 11/11/18at 20:32; Start 11/07/18 at 21:00; Stop 11/12/18 at 14:26; Status DC Trazodone HCl (Desyrel) 100 mg QHS PO Last administered on 11/20/18at 20:33; Start 11/12/18 at 21:00 A-FIB/CHADSVASC A-FIB History Current/History of A-Fib/PAF?: No ADDISON URRUTIA MD November 21, 2018 13:55
[2018-11-21 14:00] VITALS: BP 189/86
[2018-11-21 20:00] VITALS: BP 160/84
[2018-11-21] MEDS: **NOTE PATIENT COMMENT** MISC XX SCH (21:00)
[2018-11-21] MEDS: SIMVASTATIN 20 MG TAB PO SCH (21:48)
[2018-11-21] MEDS: CARVedilol 6.25 MG TAB PO SCH (21:49)
[2018-11-21] MEDS: traZODone 100 MG TAB PO SCH (21:49)
[2018-11-22 06:00] VITALS: BP 165/80
[2018-11-22 07:11] LABS: BASO # 0.1 10^3/uL (0.0-0.2); BASO % 0.7 % (0.0-1.0); EOS # 0.2 10^3/uL (0.0-0.50); EOS % 2.9 % (0.0-3.0); HEMATOCRIT 38.1 % (42.0-52.0); HEMOGLOBIN 12.8 g/dl (13.5-17.5); LYMPH # 1.3 10^3/uL (1.5-4.5); LYMPH % 18.2 % (24.0-44.0); MEAN CORPUSCULAR HEMOGLOBIN 31.8 pg (27.0-33.0); MEAN CORPUSCULAR HGB CONC 33.6 g/dl (32.0-36.5); MEAN CORPUSCULAR VOLUME 94.5 fl (80.0-96.0); MONO # 0.6 10^3/uL (0.0-0.8); MONO % 8.1 % (0.0-5.0); NEUTROPHILS % 69.5 % (36.0-66.0); PLATELET COUNT, AUTOMATED 147 10^3/uL (150-450); RED BLOOD COUNT 4.03 10^6/uL (4.30-6.10); WHITE BLOOD COUNT 7.2 10^3/uL (4.0-10.0)
[2018-11-22 07:22] LABS: BLOOD UREA NITROGEN 22 MG/DL (7-18); CALCIUM LEVEL 9.2 MG/DL (8.8-10.2); CARBON DIOXIDE LEVEL 28 MEQ/L (21-32); CHLORIDE LEVEL 112 MEQ/L (98-107); CREATININE FOR GFR 1.08 MG/DL (0.70-1.30); GLOMERULAR FILTRATION RATE > 60.0 (>42); GLUCOSE, FASTING 108 MG/DL (70-100); SODIUM LEVEL 143 MEQ/L (136-145)
[2018-11-22] MEDS: GABAPENTIN 100 MG CAP PO SCH ×3 (08:53→21:03)
[2018-11-22] MEDS: LIDOCAINE 5% (LIDODERM) PATCH TD SCH (08:53)
[2018-11-22] MEDS: CARVedilol 6.25 MG TAB PO SCH ×2 (08:53→21:04)
[2018-11-22] MEDS: TAMSULOSIN 0.4 MG CAP PO SCH (08:53)
[2018-11-22] MEDS: LISINOPRIL 20 MG TAB PO SCH (08:54)
[2018-11-22] MEDS: PANTOPRAZOLE 40MG TAB (PROTONIX) PO SCH (08:54)
[2018-11-22] MEDS: DOCUSATE SODIUM 100 MG CAP PO SCH (08:54)
[2018-11-22] MEDS: amLODIPine 10 MG TAB PO SCH (08:54)
[2018-11-22] MEDS: FLUoxetine 20 MG CAP PO SCH (08:54)
[2018-11-22] MEDS: **hydrALAZINE HCL** 25 MG TAB PO SCH ×3 (08:55→21:05)
[2018-11-22] MEDS: ANALGESIC BALM CRM 120 GM TOP SCH ×3 (09:00→21:06)
--- NOTE | 2018-11-22 12:17 | IPNPDOC ---
Subjective Date Seen The patient was seen on 11/22/18. Subjective Chief Complaint/HPI Patient is a 73-year-old male, past medical history significant for obesity, hypertension, hyperlipidemia, who unfortunately developed sudden onset of dysarthria, left-sided facial droop and weakness. Patient took aspirin and presented to the emergency room where CAT scan showed 4.2 x 1.8 cm acute right ganglia hemorrhage Events since last encounter Has no new complaints or concerns today. Has been tolerating physical therapy without issues. Denies chest pain, denies shortness of breath. Objective Physical Examination Other physical findings General: Morbidly obese elderly male, in bed, in no acute distress Skin: Warm, dry, intact. Cardiovascular: Regular rate and rhythm, no MRG, no jugular venous distention, no edema. Respiratory:CTAB, no accessory muscle use noted. Abdomen: Bowel sounds +, no tenderness, no distention Musculoskeletal: Left hemiparesis No joint deformities, Neurologic: Left hemiparesis, facial droop, alert and oriented 3 Psychiatric: Appropriate mood and affect, no anxiety or agitation. A-FIB/CHADSVASC A-FIB History Current/History of A-Fib/PAF?: No Current Oral Anticoagulant The: No Assessment /Plan Problems (1) HTN (hypertension) Status: Chronic Problem Text: Blood pressure still uncontrolled -Continue to adjust doses. -We will target systolic blood pressure less than 150 (2) Hemorrhagic stroke Status: Acute Problem Specific Plan: Consult Specialist Problem Text: -Acute right basal ganglia hemorrhagic infarct with left neurologic deficits -Continued in rehabilitation unit for mobilization and strengthening -No new neurologic symptoms or deficits (3) Cervicalgia Status: Acute Problem Text: -No further complaints -Continue lidocaine patch (4) Hemiplegia of left dominant side as late effect of cerebral infarction Status: Acute Response to Treatment: Improving Problem Text: -Improving with physical and occupational therapy -Management per primary team (5) Hyperlipidemia Discussed With: Health Care Proxy Problem Text: -Continue statin therapy (6) Anxiety and depression Status: Chronic Problem Text: -Continue fluoxetine and trazodone (7) Low back pain Problem Text: -Continue Neurontin and muscle relaxer Plan/VTE VTE Prophylaxis Ordered?: Yes VTE Exclusion Pharmacological: Hemorrhage VS, I&O, 24H, Fishbone Vital Signs/I&O Vital Signs Date Time Temp Pulse Resp B/P (MAP) Pulse Ox O2 Delivery O2 Flow Rate FiO2 11/22/18 08:55 182/87 11/22/18 08:54 63 11/22/18 06:00 97.9 18 91 I&O- Last 24 Hours up to 6 AM 11/22/18 06:00 Intake Total 800 ml Output Total 0 ml Balance 800 ml Laboratory Data 24H LABS Laboratory Tests 2 11/22/18 06:30: Immature Granulocyte % (Auto) 0.6, White Blood Count 7.2, Red Blood Count 4.03L, Hemoglobin 12.8L, Hematocrit 38.1L, Mean Corpuscular Volume 94.5, Mean Corpuscular Hemoglobin 31.8, Mean Corpuscular Hemoglobin Concent 33.6, Red Cell Distribution Width 11.7, Platelet Count 147L, Neutrophils (%) (Auto) 69.5H, Lymphocytes (%) (Auto) 18.2L, Monocytes (%) (Auto) 8.1H, Eosinophils (%) (Auto) 2.9, Basophils (%) (Auto) 0.7, Neutrophils # (Auto) 5.0, Lymphocytes # (Auto) 1.3L, Monocytes # (Auto) 0.6, Eosinophils # (Auto) 0.2, Basophils # (Auto) 0.1, Nucleated Red Blood Cells % (auto) 0.0, Anion Gap 3L, Glomerular Filtration Rate > 60.0, Blood Urea Nitrogen 22H, Creatinine 1.08, Sodium Level 143, Potassium Level 4.0, Chloride Level 112H, Carbon Dioxide Level 28, Calcium Level 9.2 CBC/BMP Laboratory Tests 11/22/18 06:30 Red Blood Count 4.03 L, Mean Corpuscular Volume 94.5, Mean Corpuscular Hemoglobin 31.8, Mean Corpuscular Hemoglobin Concent 33.6, Red Cell Distribution Width 11.7, Neutrophils (%) (Auto) 69.5 H, Lymphocytes (%) (Auto) 18.2 L, Mon ocytes (%) (Auto) 8.1 H, Eosinophils (%) (Auto) 2.9, Basophils (%) (Auto) 0.7, Neutrophils # (Auto) 5.0, Lymphocytes # (Auto) 1.3 L, Monocytes # (Auto) 0.6, Eosinophils # (Auto) 0.2, Basophils # (Auto) 0.1, Calcium Level 9.[address] [facility] November 22, 2018 12:17
[2018-11-22 14:00] VITALS: BP_SYST 124; BP_SYST 127; BP_DIAS 58
[2018-11-22] MEDS: NIFEdipine 30 MG XL TAB PO SCH (15:52)
[2018-11-22 20:00] VITALS: BP 152/70
[2018-11-22] MEDS: **NOTE PATIENT COMMENT** MISC XX SCH (21:00)
[2018-11-22] MEDS: SIMVASTATIN 20 MG TAB PO SCH (21:05)
[2018-11-22] MEDS: traZODone 100 MG TAB PO SCH (21:05)
[2018-11-23 06:00] VITALS: BP 140/67
[2018-11-23] MEDS: ACETAMINOPHEN TAB 650MG DOSE (2X325MG) PO PRN (08:31)
[2018-11-23] MEDS: TAMSULOSIN 0.4 MG CAP PO SCH (08:31)
[2018-11-23] MEDS: NIFEdipine 30 MG XL TAB PO SCH (08:32)
[2018-11-23] MEDS: CARVedilol 6.25 MG TAB PO SCH ×2 (08:32→20:27)
[2018-11-23] MEDS: FLUoxetine 20 MG CAP PO SCH (08:32)
[2018-11-23] MEDS: LISINOPRIL 20 MG TAB PO SCH (08:32)
[2018-11-23] MEDS: PANTOPRAZOLE 40MG TAB (PROTONIX) PO SCH (08:32)
[2018-11-23] MEDS: **hydrALAZINE HCL** 25 MG TAB PO SCH ×3 (08:32→20:26)
[2018-11-23] MEDS: GABAPENTIN 100 MG CAP PO SCH ×3 (08:32→20:28)
[2018-11-23] MEDS: amLODIPine 10 MG TAB PO SCH (08:32)
[2018-11-23] MEDS: DOCUSATE SODIUM 100 MG CAP PO SCH (08:33)
[2018-11-23] MEDS: ANALGESIC BALM CRM 120 GM TOP SCH ×3 (08:33→20:28)
[2018-11-23] MEDS: LIDOCAINE 5% (LIDODERM) PATCH TD SCH (08:33)
--- NOTE | 2018-11-23 12:18 | IPNPDOC ---
Subjective Date Seen The patient was seen on 11/23/18. Subjective Chief Complaint/HPI Patient is a 73-year-old male, past medical history significant for obesity, hypertension, hyperlipidemia, who unfortunately developed sudden onset of dysarthria, left-sided facial droop and weakness. Patient took aspirin and presented to the emergency room where CAT scan showed 4.2 x 1.8 cm acute right ganglia hemorrhage Events since last encounter Patient has no new complaints or concerns today. Denies chest pain, denies shortness of breath, denies worsening symptoms. Objective Physical Examination Other physical findings General: Morbidly obese elderly male, in bed, in no acute distress Skin: Warm, dry, intact. Cardiovascular: Regular rate and rhythm, no MRG, no jugular venous distention, no edema. Respiratory:CTAB, no accessory muscle use noted. Abdomen: Bowel sounds +, no tenderness, no distention Musculoskeletal: Left hemiparesis No joint deformities, Neurologic: Left hemiparesis, facial droop, alert and oriented 3 Psychiatric: Appropriate mood and affect, no anxiety or agitation. A-FIB/CHADSVASC A-FIB History Current/History of A-Fib/PAF?: No Current Oral Anticoagulant The: No Assessment /Plan Problems (1) HTN (hypertension) Status: Chronic Problem Text: Blood pressure improved today -continue hydralazine, adalat, coreg - target systolic blood pressure less than 150 (2) Hemorrhagic stroke Status: Acute Problem Specific Plan: Consult Specialist Problem Text: -Acute right basal ganglia hemorrhagic infarct with left neurologic deficits -Continued in rehabilitation unit for mobilization and strengthening -No new neurologic symptoms or deficits (3) Cervicalgia Status: Acute Problem Text: -Continue lidocaine patch (4) Hemiplegia of left dominant side as late effect of cerebral infarction Status: Acute Response to Treatment: Improving Problem Text: -Improving with physical and occupational therapy -Management per primary team (5) Hyperlipidemia Discussed With: Health Care Proxy Problem Text: -Continue statin therapy (6) Anxiety and depression Status: Chronic Problem Text: -Continue fluoxetine and trazodone (7) Low back pain Problem Text: -Continue Neurontin and muscle relaxer Plan/VTE VTE Prophylaxis Ordered?: Yes VTE Exclusion Pharmacological: Hemorrhage VS, I&O, 24H, Fishbone Vital Signs/I&O Vital Signs Date Time Temp Pulse Resp B/P (MAP) Pulse Ox O2 Delivery O2 Flow Rate FiO2 11/23/18 08:32 140/67 5/5/19 08:32 63 11/23/18 06:00 98.0 20 92 I&O- Last 24 Hours up to 6 AM 11/23/18 06:00 Intake Total 1440 ml Output Total 200 ml Balance 1240 ml ERIN KUMAR [facility] November 23, 2018 12:18
[2018-11-23 14:00] VITALS: BP 127/60
[2018-11-23 20:00] VITALS: BP 163/79
[2018-11-23] MEDS: traZODone 100 MG TAB PO SCH (20:20)
[2018-11-23] MEDS: SIMVASTATIN 20 MG TAB PO SCH (20:27)
[2018-11-23] MEDS: **NOTE PATIENT COMMENT** MISC XX SCH (20:29)
[2018-11-24 05:51] VITALS: BP 149/73
[2018-11-24] MEDS: FLUoxetine 20 MG CAP PO SCH (08:38)
[2018-11-24] MEDS: DOCUSATE SODIUM 100 MG CAP PO SCH (08:38)
[2018-11-24] MEDS: LIDOCAINE 5% (LIDODERM) PATCH TD SCH (08:38)
[2018-11-24] MEDS: LISINOPRIL 20 MG TAB PO SCH (08:38)
[2018-11-24] MEDS: amLODIPine 10 MG TAB PO SCH (08:38)
[2018-11-24] MEDS: GABAPENTIN 100 MG CAP PO SCH ×3 (08:38→20:53)
[2018-11-24] MEDS: PANTOPRAZOLE 40MG TAB (PROTONIX) PO SCH (08:38)
[2018-11-24] MEDS: NIFEdipine 30 MG XL TAB PO SCH (08:38)
[2018-11-24] MEDS: **hydrALAZINE HCL** 25 MG TAB PO SCH ×3 (08:39→20:53)
[2018-11-24] MEDS: ANALGESIC BALM CRM 120 GM TOP SCH ×3 (08:39→20:54)
[2018-11-24] MEDS: TAMSULOSIN 0.4 MG CAP PO SCH (08:39)
[2018-11-24] MEDS: CARVedilol 6.25 MG TAB PO SCH ×2 (08:39→20:53)
--- NOTE | 2018-11-24 10:15 | IPNPDOC ---
PM&R Progress Note DATE OF SERVICE: November 24, 2018 Routing Machine Operator Progress Note Subjective: Patient seen in his room stating he is feeling stronger and agreeable to going to SNF if his insurance clears him. REVIEW OF SYSTEMS: The following is a completed review of systems and has been reviewed. Review of systems otherwise unremarkable. PAIN: Patient self reports no pain EYES: Negative for vision changes EARS, NOSE, & THROAT:+dysphagia (improving) CARDIOVASCULAR: denies chest pain or palpitations PULMONARY: Negative. Denies shortness of breath GASTROINTESTINAL: Negative for diarrhea/constipation GENITOURINARY: Negative for dysuria, + incontinence MUSCULOSKELETAL:+ lumbar stenosis NEUROLOGICAL: +dysarthria, dysphagia, left sided hemiplegia HEMATOLOGICAL: Negative SKIN: no rash PSYCHIATRIC: Unremarkable All other review of systems found to be negative. PHYSICAL EXAMINATION: VITAL SIGNS: Please see below. GENERAL: Pleasant and cooperative. No acute distress. HEENT: PERRL. Extraocular movements intact. Clear conjunctiva, left sided facial droop CARDIOVASCULAR: Regular rate and rhythm. No murmurs, rubs, or gallops LUNGS: Clear to auscultation bilaterally. No wheezes. No rhonchi ABDOMEN: Soft, nontender, nondistended. Positive bowel sounds. Normal active bowel sounds NEUROLOGICAL: Alert and oriented times three. Cranial nerves II through XII grossly intact except CN VII, Sensation grossly intact except extinction to touch in the RUE EXTREMITIES: 5\5 strength left upper extremities. 3+/5 left elbow flexion/extension, wrist extension, legal administrative secretary, 5\5 strength right lower extremity. 4/5 strength in left lower extremity. SKIN: intact ASSESSMENT:73-year-old M with past medical history of HTN, HLD, and low back pain who presents status post hemorrhagic stroke. PLAN: 1. Rehab: OT, PT, CHLORINE OPERATOR for dysphagia- MBS 11/06/18, ok drink thins, and upgraded per CHLORINE OPERATOR to regular diet, inconsistent performance in OT and PT due to cognitive deficits gradually getting better 2. 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 CArdio: pmh HTN and HLD- c/u statin, BP meds changed to hydralazine prn and Norvasc to avoid kidney injury, s/p Lisinopril- back on HCTZ- medicine recs appreciated -per [facility] records ECHO ordered, however unable to view report in their EMR, will f/u on these results 4. Pain: Tylenopl prn 5. : admission Ua and Ucx negative, monitor PVRs- needs f/u outpatient urology for incontinence, per patient he has had urgency and incontinence for 2 years and had his prostate checked once, c/u Flomax and monitor- improving -repeat UA negative 6. GI ppx: c/u protonix 7. DVT ppx: will hold heparin for now, use TEDs, admission Doppler negative for DVTs 8. Skin: Balmex to sacrum 9. Insomnia: c/u Trazodone 100mg qHS-sleep improving 10. Renal: DARRIAN resolved with fluids and better po intake 11. Pain: right sided neck pain, c/u menthol salicylate -lidoderm patch to low back 9. Dispo: slowly progressing towards goal, however will not have help at home, so recommend SNF at this time until he is more steady on is feet with better insight into his deficits, insurance appeal underway Allergies Coded Allergies: codeine (Verified Adverse Reaction, Unknown, nausea, 11/01/18) Vital Signs Vital Signs Date Time Temp Pulse Resp B/P (MAP) Pulse Ox O2 Delivery O2 Flow Rate FiO2 11/24/18 08:39 57 149/73 11/24/18 05:51 98.3 20 91 Current Medications Current Medications Current Medications Acetaminophen (Tylenol Tab) 650 mg Q4HP PRN PO fever/MILD PAIN (PS 1-4) Last administered on 11/23/18at 08:31; Start 11/05/18 at 14:15 Al Hydrox/Mg Hydrox/Simethicone (Mylanta) 30 ml Q4HP PRN PO DYSPEPSIA; Start 11/05/18 at 14:15 Amlodipine Besylate (Norvasc) 5 mg DAILY PO Last administered on 11/08/18at 09:36; Start 11/07/18 at 09:00; Stop 11/09/18 at 07:03; Status DC Amlodipine Besylate (Norvasc) 10 mg DAILY PO Last administered on 11/24/18at 08:38; Start 11/09/18 at 09:00 Betamethasone/ Clotrimazole (Lotrisone Cream) TO LEFT UPPER EAR QHS TOP ; Start 11/05/18 at 21:00; Stop 11/05/18 at 21:00; Status DC Bisacodyl (Dulcolax Suppository) 10 mg DAILYPRN PRN [place] CONSTIPATION; Start 11/05/18 at 14:15 Bisacodyl (Dulcolax Tab) 5 mg QHS PO Last administered on 11/06/18at 20:05; Start 11/05/18 at 21:00; Stop 11/09/18 at 11:11; Status DC Carvedilol (COReg) 6.25 mg BID PO Last administered on 11/24/18 08:39; Start 11/21/18 at 21:00 Cyclobenzaprine HCl (Flexeril) 10 mg Q8HP PRN PO SPASMS; Start 11/20/18 at 17:15 Docusate Sodium (Colace) 100 mg BID PO Last administered on 11/08/18 09:36; Start 11/05/18 at 21:00; Stop 11/09/18 at 11:11; Status DC Docusate Sodium (Colace) 100 mg DAILY PO Last administered on 11/24/18 08:38; Start 11/21/18 at 10:15 Fluoxetine HCl (PROzac) 20 mg DAILY PO Last administered on 11/24/18 08:38; Start 11/05/18 at 15:00 Gabapentin (Neurontin) 100 mg TID PO Last administered on 11/24/18 08:38; Start 11/20/18 at 21:00 Home Med (Med Rec Complete!) ASDIRECTED XX ; Start 11/05/18 at 15:00; Stop 11/05/18 at 15:01; Status DC Hydralazine HCl (Apresoline) 25 mg Q6H PRN PO Hypertension Last administered on 11/17/18 20:52; Start 11/07/18 at 08:30; Stop 11/20/18 at 15:53; Status DC Hydralazine HCl (Apresoline) 25 mg TID PO Last administered on 11/24/18 08:39; Start 11/20/18 at 16:00 Hydrochlorothiazide (Hydrodiuril) 50 mg DAILY PO Last administered on 11/06/18 08:37; Start 11/06/18 at 09:00; Stop 11/07/18 at 08:18; Status DC Lidocaine (Lidoderm Patch) 1 patch DAILY TD Last administered on 11/24/18 08:38; Start 11/19/18 at 09:00 Lidocaine (Lidoderm Patch) 1 patch QHS TD Last administered on 11/17/18 20:52; Start 11/07/18 at 21:00; Stop 11/18/18 at 17:43; Status DC Lisinopril (Prinivil) 20 mg BID PO Last administered on 11/06/18 20:08; Start 11/05/18 at 21:00; Stop 11/07/18 at 08:18; Status DC Lisinopril (Prinivil) 20 mg DAILY PO Last administered on 11/24/18 08:38; Start 11/10/18 at 09:00 Loperamide HCl (Imodium) 2 mg ASDIRECTED PRN PO DIARRHEA; Start 11/09/18 at 11:15 Magnesium Hydroxide (Milk Of Magnesia) 30 ml DAILYPRN PRN PO CONSTIPATION; Start 11/05/18 at 14:15 Menthol/Methyl Salicylate (Bengay Cream) apply to bilateral up... TID TOP Last administered on 11/24/18 08:39; Start 11/18/18 at 21:00 Nifedipine (Procardia Xl) 30 mg QAM PO Last administered on 11/24/18 08:38; Start 11/22/18 at 12:15 Non-Formulary Medication ( See Comment Field Below ) REMOVE LIDODERM PATCH DAILY@0900 XX Last administered on 11/18/18 09:00; Start 11/08/18 at 09:00; Stop 11/18/18 at 17:48; Status DC Non-Formulary Medication ( See Comment Field Below ) REMOVE LIDODERM PATCH DAILY@2100 XX Last administered on 11/23/18 20:29; Start 11/19/18 at 21:00 Pantoprazole Sodium (Protonix) 40 mg DAILY PO Last administered on 11/24/18 08:38; Start 11/05/18 at 15:00 Patient Own Medication (Patient'S Own Med) clotrimazole betamethasone 0.05% ap... QHS XX ; Start 11/05/18 at 21:00; Stop 11/05/18 at 21:00; Status DC Simvastatin (Zocor) 20 mg QHS PO Last administered on 11/23/18 20:27; Start 11/05/18 at 21:00 Sodium Chloride 1,000 ml @ 100 mls/hr Q10H IV Last administered on 11/08/18 04:39; Start 11/07/18 at 08:30; Stop 11/08/18 at 11:36; Status DC Tamsulosin HCl (Flomax) 0.4 mg DAILY PO Last administered on 11/24/18 08:39; Start 11/12/18 at 09:00 Trazodone HCl (Desyrel) 25 mg QHS PO Last administered on 11/06/18at 20:04; Start 11/06/18 at 21:00; Stop 11/07/18 at 10:58; Status DC Trazodone HCl (Desyrel) 25 mg QHSP PRN PO INSOMNIA; Start 11/05/18 at 14:15; Stop 11/06/18 at 12:30; Status DC Trazodone HCl (Desyrel) 25 mg QHSP PRN PO SLEEP; Start 11/06/18 at 16:45; Stop 11/12/18 at 14:26; Status DC Trazodone HCl (Desyrel) 50 mg QHS PO Last administered on 11/11/18at 20:32; Start 11/07/18 at 21:00; Stop 11/12/18 at 14:26; Status DC Trazodone HCl (Desyrel) 100 mg QHS PO Last administered on 11/23/18 20:20; Start 11/12/18 at 21:00 A-FIB/CHADSVASC A-FIB History Current/History of A-Fib/PAF?: No ADDISON URRUTIA MD November 24, 2018 10:15
--- NOTE | 2018-11-24 11:58 | IPNPDOC ---
Subjective Date Seen The patient was seen on 11/24/18. Subjective Chief Complaint/HPI Patient is a 73-year-old male, past medical history significant for obesity, hypertension, hyperlipidemia, who unfortunately developed sudden onset of dysarthria, left-sided facial droop and weakness. Patient took aspirin and presented to the emergency room where CAT scan showed 4.2 x 1.8 cm acute right ganglia hemorrhage Events since last encounter Concerned that he is currently on a lot of blood pressure medications. Denies chest pain, denies shortness of breath, denies any discomfort. Objective Physical Examination Other physical findings General: Morbidly obese elderly male, in bed, in no acute distress Skin: Warm, dry, intact. Cardiovascular: Regular rate and rhythm, no MRG, no jugular venous distention, 2+ BLE edema. Respiratory:CTAB, no accessory muscle use noted. Abdomen: Bowel sounds +, no tenderness, no distention Musculoskeletal: Left hemiparesis No joint deformities, Neurologic: Left hemiparesis, facial droop, alert and oriented 3 Psychiatric: Appropriate mood and affect, no anxiety or agitation. A-FIB/CHADSVASC A-FIB History Current/History of A-Fib/PAF?: No Current Oral Anticoagulant The: No Assessment /Plan Problems (1) HTN (hypertension) Status: Chronic Problem Text: -Blood pressure currently controlled -Bradycardia, is present -Continue beta susanne therapy at current dose (2) Hemorrhagic stroke Status: Acute Problem Specific Plan: Consult Specialist Problem Text: -Acute right basal ganglia hemorrhagic infarct with left neurologic deficits -Continued in rehabilitation unit for mobilization and strengthening -Neurologic deficits improving (3) Cervicalgia Status: Acute Problem Text: -Continue lidocaine patch (4) Hemiplegia of left dominant side as late effect of cerebral infarction Status: Acute Response to Treatment: Improving Problem Text: -Improving with physical and occupational therapy -Management per primary team (5) Hyperlipidemia Discussed With: Health Care Proxy Problem Text: -Continue statin therapy (6) Anxiety and depression Status: Chronic Problem Text: -Continue fluoxetine and trazodone (7) Low back pain Problem Text: -Continue Neurontin and muscle relaxer Plan/VTE VTE Prophylaxis Ordered?: Yes VTE Exclusion Pharmacological: Hemorrhage VS, I&O, 24H, Fishbone Vital Signs/I&O Vital Signs Date Time Temp Pulse Resp B/P (MAP) Pulse Ox O2 Delivery O2 Flow Rate FiO2 5/6/19 08:39 57 149/73 11/24/18 05:51 98.3 20 91 I&O- Last 24 Hours up to 6 AM 11/24/18 06:00 Intake Total 360 ml Output Total 1 ml Balance 359 ml ERIN KUMAR STOCK RECEIVER November 24, 2018 11:58
[2018-11-24 14:00] VITALS: BP 143/78
[2018-11-24] MEDS: hydroCHLOROthiazide 25 MG TAB PO SCH (17:39)
[2018-11-24 20:00] VITALS: BP 142/65
[2018-11-24] MEDS: SIMVASTATIN 20 MG TAB PO SCH (20:53)
[2018-11-24] MEDS: traZODone 50 MG TAB PO SCH (20:53)
[2018-11-24] MEDS: **NOTE PATIENT COMMENT** MISC XX SCH (20:56)
[2018-11-25 06:00] VITALS: BP 135/67
[2018-11-25] MEDS: LIDOCAINE 5% (LIDODERM) PATCH TD SCH (09:00)
[2018-11-25] MEDS: TAMSULOSIN 0.4 MG CAP PO SCH (09:00)
[2018-11-25] MEDS: LISINOPRIL 20 MG TAB PO SCH (11:12)
[2018-11-25] MEDS: hydroCHLOROthiazide 25 MG TAB PO SCH (11:12)
[2018-11-25] MEDS: GABAPENTIN 100 MG CAP PO SCH ×3 (11:12→20:33)
[2018-11-25] MEDS: PANTOPRAZOLE 40MG TAB (PROTONIX) PO SCH (11:13)
[2018-11-25] MEDS: FLUoxetine 20 MG CAP PO SCH (11:13)
[2018-11-25] MEDS: NIFEdipine 30 MG XL TAB PO SCH (11:13)
[2018-11-25] MEDS: amLODIPine 10 MG TAB PO SCH (11:13)
[2018-11-25] MEDS: **hydrALAZINE HCL** 25 MG TAB PO SCH ×3 (11:14→20:33)
[2018-11-25] MEDS: CARVedilol 6.25 MG TAB PO SCH ×2 (11:14→20:33)
[2018-11-25] MEDS: DOCUSATE SODIUM 100 MG CAP PO SCH (11:14)
[2018-11-25] MEDS: ANALGESIC BALM CRM 120 GM TOP SCH ×3 (11:17→20:33)
--- NOTE | 2018-11-25 13:05 | IPNPDOC ---
Subjective Date Seen The patient was seen on 11/25/18. Subjective Chief Complaint/HPI Patient is a 73-year-old male, past medical history significant for obesity, hypertension, hyperlipidemia, who unfortunately developed sudden onset of dysarthria, left-sided facial droop and weakness. Patient took aspirin and presented to the emergency room where CAT scan showed 4.2 x 1.8 cm acute right ganglia hemorrhage Events since last encounter Back pain is persistent, medications, help, he is able to participate better with physical and occupational therapy. Has noticed speech is improved. Denies chest pain, denies shortness of breath Objective Physical Examination Other physical findings General: Morbidly obese elderly male, in bed, in no acute distress Skin: Warm, dry, intact. Cardiovascular: Regular rate and rhythm, no MRG, no jugular venous distention, trace BLE edema. Respiratory:CTAB, no accessory muscle use noted. Abdomen: Bowel sounds +, no tenderness, no distention Musculoskeletal: Left hemiparesis No joint deformities, Neurologic: Left hemiparesis, facial droop, alert and oriented 3 Psychiatric: Appropriate mood and affect, no anxiety or agitation. A-FIB/CHADSVASC A-FIB History Current/History of A-Fib/PAF?: No Current Oral Anticoagulant The: No Assessment /Plan Problems (1) HTN (hypertension) Status: Chronic Problem Text: -blood pressure remains controlled on current regimen. -will need to be weaned off hydralazine due to potential for rebound hypertension (2) Hemorrhagic stroke Status: Acute Problem Specific Plan: Consult Specialist Problem Text: -Acute right basal ganglia hemorrhagic infarct with left neurologic deficits -Continued in rehabilitation unit for mobilization and strengthening -Neurologic deficits continue improving (3) Cervicalgia Status: Acute Problem Text: -Continue lidocaine patch (4) Hemiplegia of left dominant side as late effect of cerebral infarction Status: Acute Response to Treatment: Improving Problem Text: -Improving with physical and occupational therapy -Management per primary team (5) Hyperlipidemia Discussed With: Health Care Proxy Problem Text: -Continue statin therapy (6) Anxiety and depression Status: Chronic Problem Text: -Continue fluoxetine and trazodone (7) Low back pain Problem Text: -Continue Neurontin and muscle relaxer as needed Plan/VTE VTE Prophylaxis Ordered?: Yes VTE Exclusion Pharmacological: Hemorrhage VS, I&O, 24H, Fishbone Vital Signs/I&O Vital Signs Date Time Temp Pulse Resp B/P (MAP) Pulse Ox O2 Delivery O2 Flow Rate FiO2 11/25/18 11:14 60 135/67 11/25/18 06:00 98.8 18 92 I&O- Last 24 Hours up to 6 AM 11/25/18 06:00 Intake Total 900 ml Balance 900 ml ERIN KUMAR SUBASSEMBLY ASSEMBLER November 25, 2018 13:05
[2018-11-25 14:00] VITALS: BP 169/80
[2018-11-25 20:00] VITALS: BP 112/57
[2018-11-25] MEDS: traZODone 50 MG TAB PO SCH (20:33)
[2018-11-25] MEDS: SIMVASTATIN 20 MG TAB PO SCH (20:33)
[2018-11-25] MEDS: **NOTE PATIENT COMMENT** MISC XX SCH (20:34)
[2018-11-26 06:00] VITALS: BP 130/61
[2018-11-26 07:09] LABS: BASO % 0.6 % (0.0-1.0); EOS # 0.2 10^3/uL (0.0-0.50); EOS % 2.7 % (0.0-3.0); HEMATOCRIT 40.6 % (42.0-52.0); HEMOGLOBIN 13.7 g/dl (13.5-17.5); LYMPH # 1.5 10^3/uL (1.5-4.5); MEAN CORPUSCULAR HEMOGLOBIN 31.9 pg (27.0-33.0); MEAN CORPUSCULAR HGB CONC 33.7 g/dl (32.0-36.5); MEAN CORPUSCULAR VOLUME 94.6 fl (80.0-96.0); MONO # 0.6 10^3/uL (0.0-0.8); NEUTROPHILS # 4.7 10^3/uL (1.8-7.7); PLATELET COUNT, AUTOMATED 146 10^3/uL (150-450); RED BLOOD COUNT 4.29 10^6/uL (4.30-6.10)
[2018-11-26 07:26] LABS: BLOOD UREA NITROGEN 20 MG/DL (7-18); CALCIUM LEVEL 9.7 MG/DL (8.8-10.2); CARBON DIOXIDE LEVEL 27 MEQ/L (21-32); CHLORIDE LEVEL 108 MEQ/L (98-107); CREATININE FOR GFR 1.18 MG/DL (0.70-1.30); GLOMERULAR FILTRATION RATE > 60.0 (>42); GLUCOSE, FASTING 109 MG/DL (70-100); POTASSIUM SERUM 3.8 MEQ/L (3.5-5.1); SODIUM LEVEL 140 MEQ/L (136-145)
[2018-11-26] MEDS: LIDOCAINE 5% (LIDODERM) PATCH TD SCH (08:50)
[2018-11-26] MEDS: DOCUSATE SODIUM 100 MG CAP PO SCH (08:50)
[2018-11-26] MEDS: GABAPENTIN 100 MG CAP PO SCH ×3 (08:50→20:20)
[2018-11-26] MEDS: PANTOPRAZOLE 40MG TAB (PROTONIX) PO SCH (08:50)
[2018-11-26] MEDS: LISINOPRIL 20 MG TAB PO SCH (08:50)
[2018-11-26] MEDS: hydroCHLOROthiazide 25 MG TAB PO SCH (08:50)
[2018-11-26] MEDS: amLODIPine 10 MG TAB PO SCH (08:51)
[2018-11-26] MEDS: NIFEdipine 30 MG XL TAB PO SCH (08:51)
[2018-11-26] MEDS: TAMSULOSIN 0.4 MG CAP PO SCH (08:51)
[2018-11-26] MEDS: FLUoxetine 20 MG CAP PO SCH (08:51)
[2018-11-26] MEDS: CARVedilol 6.25 MG TAB PO SCH ×2 (08:51→20:22)
[2018-11-26] MEDS: **hydrALAZINE HCL** 25 MG TAB PO SCH ×3 (08:52→20:21)
[2018-11-26] MEDS: ANALGESIC BALM CRM 120 GM TOP SCH ×3 (08:52→20:22)
[2018-11-26 14:00] VITALS: BP 142/68
[2018-11-26 20:00] VITALS: BP 139/74
[2018-11-26] MEDS: SIMVASTATIN 20 MG TAB PO SCH (20:20)
[2018-11-26] MEDS: traZODone 50 MG TAB PO SCH (20:21)
[2018-11-26] MEDS: **NOTE PATIENT COMMENT** MISC XX SCH (20:23)
[2018-11-27] MEDS: LIDOCAINE 5% (LIDODERM) PATCH TD SCH (09:12)
[2018-11-27] MEDS: amLODIPine 10 MG TAB PO SCH (09:12)
[2018-11-27] MEDS: CARVedilol 6.25 MG TAB PO SCH ×2 (09:12→20:38)
[2018-11-27] MEDS: FLUoxetine 20 MG CAP PO SCH (09:13)
[2018-11-27] MEDS: NIFEdipine 30 MG XL TAB PO SCH (09:13)
[2018-11-27] MEDS: hydroCHLOROthiazide 25 MG TAB PO SCH (09:13)
[2018-11-27] MEDS: PANTOPRAZOLE 40MG TAB (PROTONIX) PO SCH (09:13)
[2018-11-27] MEDS: LISINOPRIL 20 MG TAB PO SCH (09:13)
[2018-11-27] MEDS: TAMSULOSIN 0.4 MG CAP PO SCH (09:13)
[2018-11-27] MEDS: GABAPENTIN 100 MG CAP PO SCH ×3 (09:13→20:39)
[2018-11-27] MEDS: DOCUSATE SODIUM 100 MG CAP PO SCH (09:14)
[2018-11-27] MEDS: **hydrALAZINE HCL** 25 MG TAB PO SCH ×3 (09:14→20:38)
[2018-11-27] MEDS: ANALGESIC BALM CRM 120 GM TOP SCH ×3 (09:16→20:40)
--- NOTE | 2018-11-27 10:03 | IPNPDOC ---
PM&R Progress Note DATE OF SERVICE: November 26, 2018 Php Mysql Web Developer Progress Note Subjective: Patient reports he feels more steady on his feet with better postural control and is eager for his home eval tomorrow. REVIEW OF SYSTEMS: The following is a completed review of systems and has been reviewed. Review of systems otherwise unremarkable. PAIN: Patient self reports no pain EYES: Negative for vision changes EARS, NOSE, & THROAT:+dysphagia (improving) CARDIOVASCULAR: denies chest pain or palpitations PULMONARY: Negative. Denies shortness of breath GASTROINTESTINAL: Negative for diarrhea/constipation GENITOURINARY: Negative for dysuria, + incontinence (improving) MUSCULOSKELETAL:+ lumbar stenosis NEUROLOGICAL: +dysarthria, dysphagia, left sided hemiplegia HEMATOLOGICAL: Negative SKIN: no rash PSYCHIATRIC: Unremarkable All other review of systems found to be negative. PHYSICAL EXAMINATION: VITAL SIGNS: Please see below. GENERAL: Pleasant and cooperative. No acute distress. HEENT: PERRL. Extraocular movements intact. Clear conjunctiva, left sided facial droop CARDIOVASCULAR: Regular rate and rhythm. No murmurs, rubs, or gallops LUNGS: Clear to auscultation bilaterally. No wheezes. No rhonchi ABDOMEN: Soft, nontender, nondistended. Positive bowel sounds. Normal active bowel sounds NEUROLOGICAL: Alert and oriented times three. Cranial nerves II through XII grossly intact except CN VII, Sensation grossly intact except extinction to touch in the RUE EXTREMITIES: 5\5 strength left upper extremities. 3+/5 left elbow flexion/extension, wrist extension, chauffeur airport limousine, 5\5 strength right lower extremity. 4/5 strength in left lower extremity. SKIN: intact ASSESSMENT:73-year-old M with past medical history of HTN, HLD, and low back pain who presents status post hemorrhagic stroke. PLAN: 1. Rehab: OT, PT, INFORMATION AND DATA ARCHITECT ANALYST for dysphagia- MBS 11/06/18, ok drink thins, and upgraded per INFORMATION AND DATA ARCHITECT ANALYST to regular diet, performance more consistent in OT and PT-home eval planned for tomorrow 2. 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 CArdio: pmh HTN and HLD- c/u statin, BP meds changed to hydralazine prn and Norvasc to avoid kidney injury, s/p Lisinopril- back on HCTZ- medicine recs appreciated -per [facility] records ECHO ordered, however unable to view report in their EMR, will f/u on these results 4. Pain: Tylenopl prn 5. : admission Ua and Ucx negative, monitor PVRs- needs f/u outpatient urology for incontinence, per patient he has had urgency and incontinence for 2 years and had his prostate checked once, c/u Flomax and monitor- improving -repeat UA negative 6. GI ppx: c/u protonix 7. DVT ppx: will hold heparin for now, use TEDs, admission Doppler negative for DVTs 8. Skin: Balmex to sacrum 9. Insomnia: c/u Trazodone 100mg qHS-sleep improving 10. Renal: DARRIAN resolved with fluids and better po intake 11. Pain: right sided neck pain, c/u menthol salicylate -lidoderm patch to low back 9. Dispo: slowly progressing towards goal,however given his insurance will not allow him more time in IRF or clear him for SNF, will plan for home- home eval scheduled for tomorrow Allergies Coded Allergies: codeine (Verified Adverse Reaction, Unknown, nausea, 11/01/18) Vital Signs Vital Signs Date Time Temp Pulse Resp B/P (MAP) Pulse Ox O2 Delivery O2 Flow Rate FiO2 11/27/18 09:12 60 139/74 11/27/18 05:30 97.9 18 92 Current Medications Current Medications Current Medications Acetaminophen (Tylenol Tab) 650 mg Q4HP PRN PO fever/MILD PAIN (PS 1-4) Last administered on 11/23/18at 08:31; Start 11/05/18 at 14:15 Al Hydrox/Mg Hydrox/Simethicone (Mylanta) 30 ml Q4HP PRN PO DYSPEPSIA; Start 11/05/18 at 14:15 Amlodipine Besylate (Norvasc) 5 mg DAILY PO Last administered on 11/08/18at 09:36; Start 11/07/18 at 09:00; Stop 11/09/18 at 07:03; Status DC Amlodipine Besylate (Norvasc) 10 mg DAILY PO Last administered on 11/27/18at 09:12; Start 11/09/18 at 09:00 Betamethasone/ Clotrimazole (Lotrisone Cream) TO LEFT UPPER EAR QHS TOP ; Start 11/05/18 at 21:00; Stop 11/05/18 at 21:00; Status DC Bisacodyl (Dulcolax Suppository) 10 mg DAILYPRN PRN [place] CONSTIPATION; Start 11/05/18 at 14:15 Bisacodyl (Dulcolax Tab) 5 mg QHS PO Last administered on 11/06/18at 20:05; Start 11/05/18 at 21:00; Stop 11/09/18 at 11:11; Status DC Carvedilol (COReg) 6.25 mg BID PO Last administered on 11/27/18 09:12; Start 11/21/18 at 21:00 Cyclobenzaprine HCl (Flexeril) 10 mg Q8HP PRN PO SPASMS; Start 11/20/18 at 17:15 Docusate Sodium (Colace) 100 mg BID PO Last administered on 11/08/18 09:36; Start 11/05/18 at 21:00; Stop 11/09/18 at 11:11; Status DC Docusate Sodium (Colace) 100 mg DAILY PO Last administered on 11/27/18 09:14; Start 11/21/18 at 10:15 Fluoxetine HCl (PROzac) 20 mg DAILY PO Last administered on 11/27/18 09:13; Start 11/05/18 at 15:00 Gabapentin (Neurontin) 100 mg TID PO Last administered on 11/27/18 09:13; Start 11/20/18 at 21:00 Home Med (Med Rec Complete!) ASDIRECTED XX ; Start 11/05/18 at 15:00; Stop 11/05/18 at 15:01; Status DC Hydralazine HCl (Apresoline) 25 mg Q6H PRN PO Hypertension Last administered on 11/17/18 20:52; Start 11/07/18 at 08:30; Stop 11/20/18 at 15:53; Status DC Hydralazine HCl (Apresoline) 25 mg TID PO Last administered on 11/27/18 09:14; Start 11/20/18 at 16:00 Hydrochlorothiazide (Hydrodiuril) 25 mg DAILY PO Last administered on 11/27/18 09:13; Start 11/24/18 at 09:00 Hydrochlorothiazide (Hydrodiuril) 50 mg DAILY PO Last administered on 11/06/18 08:37; Start 11/06/18 at 09:00; Stop 11/07/18 at 08:18; Status DC Lidocaine (Lidoderm Patch) 1 patch DAILY TD Last administered on 11/27/18 09:12; Start 11/19/18 at 09:00 Lidocaine (Lidoderm Patch) 1 patch QHS TD Last administered on 11/17/18 20:52; Start 11/07/18 at 21:00; Stop 11/18/18 at 17:43; Status DC Lisinopril (Prinivil) 20 mg BID PO Last administered on 11/06/18 20:08; Start 11/05/18 at 21:00; Stop 11/07/18 at 08:18; Status DC Lisinopril (Prinivil) 20 mg DAILY PO Last administered on 11/27/18 09:13; Start 11/10/18 at 09:00 Loperamide HCl (Imodium) 2 mg ASDIRECTED PRN PO DIARRHEA; Start 11/09/18 at 11:15 Magnesium Hydroxide (Milk Of Magnesia) 30 ml DAILYPRN PRN PO CONSTIPATION; Start 11/05/18 at 14:15 Menthol/Methyl Salicylate (Bengay Cream) apply to bilateral up... TID TOP Last administered on 11/27/18 09:16; Start 11/18/18 at 21:00 Nifedipine (Procardia Xl) 30 mg QAM PO Last administered on 11/27/18 09:13; Start 11/22/18 at 12:15 Non-Formulary Medication ( See Comment Field Below ) REMOVE LIDODERM PATCH DAILY@0900 XX Last administered on 11/18/18 09:00; Start 11/08/18 at 09:00; Stop 11/18/18 at 17:48; Status DC Non-Formulary Medication ( See Comment Field Below ) REMOVE LIDODERM PATCH DAILY@2100 XX Last administered on 11/26/18 20:23; Start 11/19/18 at 21:00 Pantoprazole Sodium (Protonix) 40 mg DAILY PO Last administered on 11/27/18 09:13; Start 11/05/18 at 15:00 Patient Own Medication (Patient'S Own Med) clotrimazole betamethasone 0.05% ap... QHS XX ; Start 11/05/18 at 21:00; Stop 11/05/18 at 21:00; Status DC Simvastatin (Zocor) 20 mg QHS PO Last administered on 11/26/18 20:20; Start 11/05/18 at 21:00 Sodium Chloride 1,000 ml @ 100 mls/hr Q10H IV Last administered on 11/08/18at 04:39; Start 11/07/18 at 08:30; Stop 11/08/18 at 11:36; Status DC Tamsulosin HCl (Flomax) 0.4 mg DAILY PO Last administered on 11/27/18 09:13; Start 11/12/18 at 09:00 Trazodone HCl (Desyrel) 25 mg QHS PO Last administered on 11/06/18at 20:04; Start 11/06/18 at 21:00; Stop 11/07/18 at 10:58; Status DC Trazodone HCl (Desyrel) 25 mg QHSP PRN PO INSOMNIA; Start 11/05/18 at 14:15; Stop 11/06/18 at 12:30; Status DC Trazodone HCl (Desyrel) 25 mg QHSP PRN PO SLEEP; Start 11/06/18 at 16:45; Stop 11/12/18 at 14:26; Status DC Trazodone HCl (Desyrel) 50 mg QHS PO Last administered on 11/11/18at 20:32; Start 11/07/18 at 21:00; Stop 11/12/18 at 14:26; Status DC Trazodone HCl (Desyrel) 50 mg QHS PO Last administered on 11/26/18 20:21; Start 11/24/18 at 21:00 Trazodone HCl (Desyrel) 100 mg QHS PO Last administered on 11/23/18 20:20; Start 11/12/18 at 21:00; Stop 11/24/18 at 10:16; Status DC A-FIB/CHADSVASC A-FIB History Current/History of A-Fib/PAF?: No ADDISON URRUTIA MD November 27, 2018 10:03
--- NOTE | 2018-11-27 10:04 | IPNPDOC ---
PM&R Progress Note DATE OF SERVICE: November 27, 2018 Ux Visual Designer Progress Note Subjective: Home eval went well, patient feels confident to go home and will ask for help from his family and neighbor. REVIEW OF SYSTEMS: The following is a completed review of systems and has been reviewed. Review of systems otherwise unremarkable. PAIN: Patient self reports no pain EYES: Negative for vision changes EARS, NOSE, & THROAT:+dysphagia (improving) CARDIOVASCULAR: denies chest pain or palpitations PULMONARY: Negative. Denies shortness of breath GASTROINTESTINAL: Negative for diarrhea/constipation GENITOURINARY: Negative for dysuria, + incontinence (improving) MUSCULOSKELETAL:+ lumbar stenosis NEUROLOGICAL: +dysarthria, dysphagia, left sided hemiplegia HEMATOLOGICAL: Negative SKIN: no rash PSYCHIATRIC: Unremarkable All other review of systems found to be negative. PHYSICAL EXAMINATION: VITAL SIGNS: Please see below. GENERAL: Pleasant and cooperative. No acute distress. HEENT: PERRL. Extraocular movements intact. Clear conjunctiva, left sided facial droop CARDIOVASCULAR: Regular rate and rhythm. No murmurs, rubs, or gallops LUNGS: Clear to auscultation bilaterally. No wheezes. No rhonchi ABDOMEN: Soft, nontender, nondistended. Positive bowel sounds. Normal active bowel sounds NEUROLOGICAL: Alert and oriented times three. Cranial nerves II through XII grossly intact except CN VII, Sensation grossly intact except extinction to touch in the RUE EXTREMITIES: 5\5 strength left upper extremities. 3+/5 left elbow flexion/extension, wrist extension, fisher trawl line, 5\5 strength right lower extremity. 4/5 strength in left lower extremity. SKIN: intact ASSESSMENT:73-year-old M with past medical history of HTN, HLD, and low back pain who presents status post hemorrhagic stroke. PLAN: 1. Rehab: OT, PT, GATE MORTISER OPERATOR for dysphagia- MBS 11/06/18, ok drink thins, and upgraded per GATE MORTISER OPERATOR to regular diet, performance more consistent in OT and PT-home eval planned for today- will attempt to advance to room privileges over the weekend in anticipation of home d/c 2. 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 CArdio: pmh HTN and HLD- c/u statin, BP meds changed to hydralazine prn and Norvasc to avoid kidney injury, s/p Lisinopril- back on HCTZ- medicine recs appreciated -per [facility] records ECHO ordered, however unable to view report in their EMR, will f/u on these results 4. Pain: Tylenopl prn 5. : admission Ua and Ucx negative, monitor PVRs- needs f/u outpatient urology for incontinence, per patient he has had urgency and incontinence for 2 years and had his prostate checked once, c/u Flomax and monitor- improving -repeat UA negative 6. GI ppx: c/u protonix 7. DVT ppx: will hold heparin for now, use TEDs, admission Doppler negative for DVTs 8. Skin: Balmex to sacrum 9. Insomnia: c/u Trazodone at lower dose 50mg qHS-sleep improving 10. Renal: DARRIAN resolved with fluids and better po intake 11. Pain: right sided neck pain, c/u menthol salicylate -lidoderm patch to low back 9. Dispo: Home eval today, plan for d/c home 12/02/18 Allergies Coded Allergies: codeine (Verified Adverse Reaction, Unknown, nausea, 11/01/18) Vital Signs Vital Signs Date Time Temp Pulse Resp B/P (MAP) Pulse Ox O2 Delivery O2 Flow Rate FiO2 11/27/18 09:12 60 139/74 11/27/18 05:30 97.9 18 92 Current Medications Current Medications Current Medications Acetaminophen (Tylenol Tab) 650 mg Q4HP PRN PO fever/MILD PAIN (PS 1-4) Last administered on 11/23/18at 08:31; Start 11/05/18 at 14:15 Al Hydrox/Mg Hydrox/Simethicone (Mylanta) 30 ml Q4HP PRN PO DYSPEPSIA; Start 11/05/18 at 14:15 Amlodipine Besylate (Norvasc) 5 mg DAILY PO Last administered on 11/08/18at 09:36; Start 11/07/18 at 09:00; Stop 11/09/18 at 07:03; Status DC Amlodipine Besylate (Norvasc) 10 mg DAILY PO Last administered on 11/27/18at 09:12; Start 11/09/18 at 09:00 Betamethasone/ Clotrimazole (Lotrisone Cream) TO LEFT UPPER EAR QHS TOP ; Start 11/05/18 at 21:00; Stop 11/05/18 at 21:00; Status DC Bisacodyl (Dulcolax Suppository) 10 mg DAILYPRN PRN [place] CONSTIPATION; Start 11/05/18 at 14:15 Bisacodyl (Dulcolax Tab) 5 mg QHS PO Last administered on 11/06/18at 20:05; Start 11/05/18 at 21:00; Stop 11/09/18 at 11:11; Status DC Carvedilol (COReg) 6.25 mg BID PO Last administered on 11/27/18 09:12; Start 11/21/18 at 21:00 Cyclobenzaprine HCl (Flexeril) 10 mg Q8HP PRN PO SPASMS; Start 11/20/18 at 17:15 Docusate Sodium (Colace) 100 mg BID PO Last administered on 11/08/18at 09:36; Start 11/05/18 at 21:00; Stop 11/09/18 at 11:11; Status DC Docusate Sodium (Colace) 100 mg DAILY PO Last administered on 11/27/18 09:14; Start 11/21/18 at 10:15 Fluoxetine HCl (PROzac) 20 mg DAILY PO Last administered on 11/27/18 09:13; Start 11/05/18 at 15:00 Gabapentin (Neurontin) 100 mg TID PO Last administered on 11/27/18 09:13; Start 11/20/18 at 21:00 Home Med (Med Rec Complete!) ASDIRECTED XX ; Start 11/05/18 at 15:00; Stop 11/05/18 at 15:01; Status DC Hydralazine HCl (Apresoline) 25 mg Q6H PRN PO Hypertension Last administered on 11/17/18 20:52; Start 11/07/18 at 08:30; Stop 11/20/18 at 15:53; Status DC Hydralazine HCl (Apresoline) 25 mg TID PO Last administered on 11/27/18 09:14; Start 11/20/18 at 16:00 Hydrochlorothiazide (Hydrodiuril) 25 mg DAILY PO Last administered on 11/27/18 09:13; Start 11/24/18 at 09:00 Hydrochlorothiazide (Hydrodiuril) 50 mg DAILY PO Last administered on 11/06/18 08:37; Start 11/06/18 at 09:00; Stop 11/07/18 at 08:18; Status DC Lidocaine (Lidoderm Patch) 1 patch DAILY TD Last administered on 11/27/18 09:12; Start 11/19/18 at 09:00 Lidocaine (Lidoderm Patch) 1 patch QHS TD Last administered on 11/17/18 20:52; Start 11/07/18 at 21:00; Stop 11/18/18 at 17:43; Status DC Lisinopril (Prinivil) 20 mg BID PO Last administered on 11/06/18 20:08; Start 11/05/18 at 21:00; Stop 11/07/18 at 08:18; Status DC Lisinopril (Prinivil) 20 mg DAILY PO Last administered on 11/27/18 09:13; Start 11/10/18 at 09:00 Loperamide HCl (Imodium) 2 mg ASDIRECTED PRN PO DIARRHEA; Start 11/09/18 at 11:15 Magnesium Hydroxide (Milk Of Magnesia) 30 ml DAILYPRN PRN [place] CONSTIPATION; Start 11/05/18 at 14:15 Menthol/Methyl Salicylate (Bengay Cream) apply to bilateral up... TID TOP Last administered on 11/27/18 09:16; Start 11/18/18 at 21:00 Nifedipine (Procardia Xl) 30 mg QAM PO Last administered on 11/27/18 09:13; Start 11/22/18 at 12:15 Non-Formulary Medication ( See Comment Field Below ) REMOVE LIDODERM PATCH DAILY@0900 XX Last administered on 11/18/18 09:00; Start 11/08/18 at 09:00; Stop 11/18/18 at 17:48; Status DC Non-Formulary Medication ( See Comment Field Below ) REMOVE LIDODERM PATCH DAILY@2100 XX Last administered on 11/26/18 20:23; Start 11/19/18 at 21:00 Pantoprazole Sodium (Protonix) 40 mg DAILY PO Last administered on 11/27/18 09:13; Start 11/05/18 at 15:00 Patient Own Medication (Patient'S Own Med) clotrimazole betamethasone 0.05% ap... QHS XX ; Start 11/05/18 at 21:00; Stop 11/05/18 at 21:00; Status DC Simvastatin (Zocor) 20 mg QHS PO Last administered on 11/26/18 20:20; Start 11/05/18 at 21:00 Sodium Chloride 1,000 ml @ 100 mls/hr Q10H IV Last administered on 11/08/18 04:39; Start 11/07/18 at 08:30; Stop 11/08/18 at 11:36; Status DC Tamsulosin HCl (Flomax) 0.4 mg DAILY PO Last administered on 11/27/18 09:13; Start 11/12/18 at 09:00 Trazodone HCl (Desyrel) 25 mg QHS PO Last administered on 11/06/18at 20:04; Start 11/06/18 at 21:00; Stop 11/07/18 at 10:58; Status DC Trazodone HCl (Desyrel) 25 mg QHSP PRN PO INSOMNIA; Start 11/05/18 at 14:15; Stop 11/06/18 at 12:30; Status DC Trazodone HCl (Desyrel) 25 mg QHSP PRN PO SLEEP; Start 11/06/18 at 16:45; Stop 11/12/18 at 14:26; Status DC Trazodone HCl (Desyrel) 50 mg QHS PO Last administered on 11/11/18 20:32; Start 11/07/18 at 21:00; Stop 11/12/18 at 14:26; Status DC Trazodone HCl (Desyrel) 50 mg QHS PO Last administered on 11/26/18 20:21; Start 11/24/18 at 21:00 Trazodone HCl (Desyrel) 100 mg QHS PO Last administered on 11/23/18 20:20; Start 11/12/18 at 21:00; Stop 11/24/18 at 10:16; Status DC A-FIB/CHADSVASC A-FIB History Current/History of A-Fib/PAF?: No ADDISON URRUTIA MD November 27, 2018 10:04
[2018-11-27 14:00] VITALS: BP 134/78
[2018-11-27 20:00] VITALS: BP 127/60
[2018-11-27] MEDS: traZODone 50 MG TAB PO SCH (20:38)
[2018-11-27] MEDS: SIMVASTATIN 20 MG TAB PO SCH (20:38)
[2018-11-27] MEDS: **NOTE PATIENT COMMENT** MISC XX SCH (20:40)
[2018-11-28 04:30] VITALS: BP 163/77
[2018-11-28] MEDS: LISINOPRIL 20 MG TAB PO SCH (08:28)
[2018-11-28] MEDS: hydroCHLOROthiazide 25 MG TAB PO SCH (08:28)
[2018-11-28] MEDS: amLODIPine 10 MG TAB PO SCH (08:28)
[2018-11-28] MEDS: LIDOCAINE 5% (LIDODERM) PATCH TD SCH (08:29)
[2018-11-28] MEDS: PANTOPRAZOLE 40MG TAB (PROTONIX) PO SCH (08:29)
[2018-11-28] MEDS: GABAPENTIN 100 MG CAP PO SCH ×3 (08:29→20:33)
[2018-11-28] MEDS: NIFEdipine 30 MG XL TAB PO SCH (08:29)
[2018-11-28] MEDS: CARVedilol 6.25 MG TAB PO SCH ×2 (08:29→20:34)
[2018-11-28] MEDS: **hydrALAZINE HCL** 25 MG TAB PO SCH ×3 (08:29→20:34)
[2018-11-28] MEDS: DOCUSATE SODIUM 100 MG CAP PO SCH (08:29)
[2018-11-28] MEDS: TAMSULOSIN 0.4 MG CAP PO SCH (08:29)
[2018-11-28] MEDS: FLUoxetine 20 MG CAP PO SCH (08:29)
[2018-11-28] MEDS: ANALGESIC BALM CRM 120 GM TOP SCH ×3 (08:30→20:34)
[2018-11-28 14:00] VITALS: BP 127/58
[2018-11-28 16:53] VITALS: BP 147/73
[2018-11-28 20:00] VITALS: BP 136/61
[2018-11-28] MEDS: SIMVASTATIN 20 MG TAB PO SCH (20:33)
[2018-11-28] MEDS: traZODone 50 MG TAB PO SCH (20:33)
[2018-11-28] MEDS: **NOTE PATIENT COMMENT** MISC XX SCH (20:34)
[2018-11-29 06:00] VITALS: BP 121/60
[2018-11-29] MEDS: LIDOCAINE 5% (LIDODERM) PATCH TD SCH (09:00)
[2018-11-29] MEDS: hydroCHLOROthiazide 25 MG TAB PO SCH (10:07)
[2018-11-29] MEDS: LISINOPRIL 20 MG TAB PO SCH (10:07)
[2018-11-29] MEDS: TAMSULOSIN 0.4 MG CAP PO SCH (10:08)
[2018-11-29] MEDS: FLUoxetine 20 MG CAP PO SCH (10:08)
[2018-11-29] MEDS: DOCUSATE SODIUM 100 MG CAP PO SCH (10:08)
[2018-11-29] MEDS: NIFEdipine 30 MG XL TAB PO SCH (10:08)
[2018-11-29] MEDS: GABAPENTIN 100 MG CAP PO SCH ×3 (10:08→20:45)
[2018-11-29] MEDS: PANTOPRAZOLE 40MG TAB (PROTONIX) PO SCH (10:08)
[2018-11-29] MEDS: **hydrALAZINE HCL** 25 MG TAB PO SCH ×3 (10:09→20:45)
[2018-11-29] MEDS: amLODIPine 10 MG TAB PO SCH (10:09)
[2018-11-29] MEDS: CARVedilol 6.25 MG TAB PO SCH ×2 (10:09→20:45)
[2018-11-29] MEDS: ANALGESIC BALM CRM 120 GM TOP SCH ×3 (10:11→20:47)
[2018-11-29 14:00] VITALS: BP 128/63
[2018-11-29 20:00] VITALS: BP 119/56
[2018-11-29] MEDS: traZODone 50 MG TAB PO SCH (20:45)
[2018-11-29] MEDS: SIMVASTATIN 20 MG TAB PO SCH (20:45)
[2018-11-29] MEDS: **NOTE PATIENT COMMENT** MISC XX SCH (20:48)
[2018-11-30 06:00] VITALS: BP 132/67
[2018-11-30] MEDS: LIDOCAINE 5% (LIDODERM) PATCH TD SCH (09:00)
[2018-11-30] MEDS: TAMSULOSIN 0.4 MG CAP PO SCH (09:27)
[2018-11-30] MEDS: GABAPENTIN 100 MG CAP PO SCH ×3 (09:28→21:15)
[2018-11-30] MEDS: DOCUSATE SODIUM 100 MG CAP PO SCH (09:28)
[2018-11-30] MEDS: PANTOPRAZOLE 40MG TAB (PROTONIX) PO SCH (09:28)
[2018-11-30] MEDS: LISINOPRIL 20 MG TAB PO SCH (09:28)
[2018-11-30] MEDS: FLUoxetine 20 MG CAP PO SCH (09:28)
[2018-11-30] MEDS: **hydrALAZINE HCL** 25 MG TAB PO SCH ×3 (09:28→21:16)
[2018-11-30] MEDS: hydroCHLOROthiazide 25 MG TAB PO SCH (09:29)
[2018-11-30] MEDS: NIFEdipine 30 MG XL TAB PO SCH (09:29)
[2018-11-30] MEDS: CARVedilol 6.25 MG TAB PO SCH ×2 (09:29→21:16)
[2018-11-30] MEDS: amLODIPine 10 MG TAB PO SCH (09:29)
[2018-11-30] MEDS: ANALGESIC BALM CRM 120 GM TOP SCH ×3 (09:30→21:17)
[2018-11-30 16:00] VITALS: BP 144/66
[2018-11-30 20:00] VITALS: BP 131/59
[2018-11-30] MEDS: **NOTE PATIENT COMMENT** MISC XX SCH (21:00)
[2018-11-30] MEDS: SIMVASTATIN 20 MG TAB PO SCH (21:15)
[2018-11-30] MEDS: traZODone 50 MG TAB PO SCH (21:15)
[2018-12-01 06:00] VITALS: BP 133/59
[2018-12-01] MEDS: amLODIPine 10 MG TAB PO SCH (08:35)
[2018-12-01] MEDS: LIDOCAINE 5% (LIDODERM) PATCH TD SCH (08:35)
[2018-12-01] MEDS: GABAPENTIN 100 MG CAP PO SCH ×3 (08:36→21:19)
[2018-12-01] MEDS: TAMSULOSIN 0.4 MG CAP PO SCH (08:36)
[2018-12-01] MEDS: DOCUSATE SODIUM 100 MG CAP PO SCH (08:36)
[2018-12-01] MEDS: LISINOPRIL 20 MG TAB PO SCH (08:36)
[2018-12-01] MEDS: PANTOPRAZOLE 40MG TAB (PROTONIX) PO SCH (08:36)
[2018-12-01] MEDS: hydroCHLOROthiazide 25 MG TAB PO SCH (08:36)
[2018-12-01] MEDS: FLUoxetine 20 MG CAP PO SCH (08:36)
[2018-12-01] MEDS: **hydrALAZINE HCL** 25 MG TAB PO SCH ×3 (08:36→21:19)
[2018-12-01] MEDS: CARVedilol 6.25 MG TAB PO SCH (08:36)
[2018-12-01] MEDS: NIFEdipine 30 MG XL TAB PO SCH (08:37)
[2018-12-01] MEDS: ANALGESIC BALM CRM 120 GM TOP SCH ×3 (08:37→21:00)
[2018-12-01] MEDS: METOPROLOL SUCC (TopROL XL) 50MG **XL** TAB PO SCH ×2 (09:00→21:00)
--- NOTE | 2018-12-01 11:05 | IPNPDOC ---
PM&R Progress Note DATE OF SERVICE: December 01, 2018 Percher Progress Note Subjective: Patient seen in the apartment, stating the weekend went well. He is ready to go home tomorrow. REVIEW OF SYSTEMS: The following is a completed review of systems and has been reviewed. Review of systems otherwise unremarkable. PAIN: Patient self reports no pain EYES: Negative for vision changes EARS, NOSE, & THROAT:+dysphagia (improving) CARDIOVASCULAR: denies chest pain or palpitations PULMONARY: Negative. Denies shortness of breath GASTROINTESTINAL: Negative for diarrhea/constipation GENITOURINARY: Negative for dysuria, + incontinence (improving) MUSCULOSKELETAL:+ lumbar stenosis NEUROLOGICAL: +dysarthria, dysphagia, left sided hemiplegia HEMATOLOGICAL: Negative SKIN: no rash PSYCHIATRIC: Unremarkable All other review of systems found to be negative. PHYSICAL EXAMINATION: VITAL SIGNS: Please see below. GENERAL: Pleasant and cooperative. No acute distress. HEENT: PERRL. Extraocular movements intact. Clear conjunctiva, left sided facial droop CARDIOVASCULAR: Regular rate and rhythm. No murmurs, rubs, or gallops LUNGS: Clear to auscultation bilaterally. No wheezes. No rhonchi ABDOMEN: Soft, nontender, nondistended. Positive bowel sounds. Normal active bowel sounds NEUROLOGICAL: Alert and oriented times three. Cranial nerves II through XII gr ossly intact except CN VII, Sensation grossly intact except extinction to touch in the RUE EXTREMITIES: 5\5 strength left upper extremities. 3+/5 left elbow flexion/extension, wrist extension, crab catcher, 5\5 strength right lower extremity. 4/5 strength in left lower extremity. SKIN: intact ASSESSMENT:73-year-old M with past medical history of HTN, HLD, and low back pain who presents status post hemorrhagic stroke. PLAN: 1. Rehab: OT, PT, FAIRING MAN for dysphagia- MBS 11/06/18, ok drink thins, and upgraded per FAIRING MAN to regular diet, performance more consistent in OT and PT-home eval completed, patient spent weekend in apartment, reports he feels he is steady on his feet and feeling well. 2. 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 CArdio: pmh HTN and HLD- c/u statin, BP meds changed to hydralazine and Norvasc to avoid kidney injury, s/p Lisinopril- back on HCTZ- medicine recs appreciated, nicardepine and carvedilol added as well, will attempt to taper number of BP meds prior to discharge for better compliance -per [facility] records ECHO ordered, however unable to view report in their EMR, will f/u on these results 4. Pain: Tylenopl prn 5. : admission Ua and Ucx negative, monitor PVRs- needs f/u outpatient urology for incontinence, per patient he has had urgency and incontinence for 2 years and had his prostate checked once, c/u Flomax and monitor- improving -repeat UA negative 6. GI ppx: c/u protonix 7. DVT ppx: will hold heparin for now, use TEDs, admission Doppler negative for DVTs 8. Skin: Balmex to sacrum 9. Insomnia: c/u Trazodone at lower dose 50mg qHS-sleep improving 10. Renal: DARRIAN resolved with fluids and better po intake 11. Pain: right sided neck pain, c/u menthol salicylate -lidoderm patch to low back 9. Dispo: d/c to home tomorrow Allergies Coded Allergies: codeine (Verified Adverse Reaction, Unknown, nausea, 11/01/18) Vital Signs Vital Signs Date Time Temp Pulse Resp B/P (MAP) Pulse Ox O2 Delivery O2 Flow Rate FiO2 12/01/18 08:37 133/59 12/01/18 08:36 73 12/01/18 06:00 99.3 18 94 Current Medications Current Medications Current Medications Acetaminophen (Tylenol Tab) 650 mg Q4HP PRN PO fever/MILD PAIN (PS 1-4) Last administered on 11/23/18at 08:31; Start 11/05/18 at 14:15 Al Hydrox/Mg Hydrox/Simethicone (Mylanta) 30 ml Q4HP PRN PO DYSPEPSIA; Start 11/05/18 at 14:15 Amlodipine Besylate (Norvasc) 5 mg DAILY PO Last administered on 11/08/18at 09:36; Start 11/07/18 at 09:00; Stop 11/09/18 at 07:03; Status DC Amlodipine Besylate (Norvasc) 10 mg DAILY PO Last administered on 12/01/18 08:35; Start 11/09/18 at 09:00; Stop 12/01/18 at 10:23; Status DC Betamethasone/ Clotrimazole (Lotrisone Cream) TO LEFT UPPER EAR QHS TOP ; Start 11/05/18 at 21:00; Stop 11/05/18 at 21:00; Status DC Bisacodyl (Dulcolax Suppository) 10 mg DAILYPRN PRN [place] CONSTIPATION; Start 11/05/18 at 14:15 Bisacodyl (Dulcolax Tab) 5 mg QHS PO Last administered on 11/06/18at 20:05; Start 11/05/18 at 21:00; Stop 11/09/18 at 11:11; Status DC Carvedilol (COReg) 6.25 mg BID PO Last administered on 12/01/18 08:36; Start 11/21/18 at 21:00; Stop 12/01/18 at 10:23; Status DC Cyclobenzaprine HCl (Flexeril) 10 mg Q8HP PRN PO SPASMS; Start 11/20/18 at 17:15 Docusate Sodium (Colace) 100 mg BID PO Last administered on 11/08/18 09:36; Start 11/05/18 at 21:00; Stop 11/09/18 at 11:11; Status DC Docusate Sodium (Colace) 100 mg DAILY PO Last administered on 12/01/18 08:36; Start 11/21/18 at 10:15 Fluoxetine HCl (PROzac) 20 mg DAILY PO Last administered on 12/01/18 08:36; Start 11/05/18 at 15:00 Gabapentin (Neurontin) 100 mg TID PO Last administered on 12/01/18 08:36; Start 11/20/18 at 21:00 Home Med (Med Rec Complete!) ASDIRECTED XX ; Start 11/05/18 at 15:00; Stop 11/05/18 at 15:01; Status DC Hydralazine HCl (Apresoline) 25 mg Q6H PRN PO Hypertension Last administered on 11/17/18at 20:52; Start 11/07/18 at 08:30; Stop 11/20/18 at 15:53; Status DC Hydralazine HCl (Apresoline) 25 mg TID PO Last administered on 12/01/18 08:36; Start 11/20/18 at 16:00 Hydrochlorothiazide (Hydrodiuril) 25 mg DAILY PO Last administered on 12/01/18 08:36; Start 11/24/18 at 09:00; Stop 12/01/18 at 10:23; Status DC Hydrochlorothiazide (Hydrodiuril) 50 mg DAILY PO Last administered on 11/06/18at 08:37; Start 11/06/18 at 09:00; Stop 11/07/18 at 08:18; Status DC Hydrochlorothiazide (Hydrodiuril) 50 mg DAILY PO ; Start 12/02/18 at 09:00 Lidocaine (Lidoderm Patch) 1 patch DAILY TD Last administered on 12/01/18 08:35; Start 11/19/18 at 09:00 Lidocaine (Lidoderm Patch) 1 patch QHS TD Last administered on 11/17/18at 20:52; Start 11/07/18 at 21:00; Stop 11/18/18 at 17:43; Status DC Lisinopril (Prinivil) 20 mg BID PO Last administered on 11/06/18at 20:08; Start 11/05/18 at 21:00; Stop 11/07/18 at 08:18; Status DC Lisinopril (Prinivil) 20 mg DAILY PO Last administered on 12/01/18 08:36; Start 11/10/18 at 09:00; Stop 12/01/18 at 10:23; Status DC Loperamide HCl (Imodium) 2 mg ASDIRECTED PRN PO DIARRHEA; Start 11/09/18 at 11:15 Magnesium Hydroxide (Milk Of Magnesia) 30 ml DAILYPRN PRN PO CONSTIPATION; Start 11/05/18 at 14:15 Menthol/Methyl Salicylate (Bengay Cream) apply to bilateral up... TID TOP Last administered on 11/30/18at 21:17; Start 11/18/18 at 21:00 Metoprolol Succinate (TopROL XL) 50 mg BID PO ; Start 12/01/18 at 09:00 Metoprolol Succinate (TopROL XL) 50 mg QAM PO ; Start 12/02/18 at 09:00; Stop 12/02/18 at 09:00; Status DC Nifedipine (Procardia Xl) 30 mg QAM PO Last administered on 12/01/18at 08:37; Start 11/22/18 at 12:15; Stop 12/01/18 at 10:23; Status DC Non-Formulary Medication ( See Comment Field Below ) REMOVE LIDODERM PATCH DAILY@0900 XX Last administered on 11/18/18at 09:00; Start 11/08/18 at 09:00; Stop 11/18/18 at 17:48; Status DC Non-Formulary Medication ( See Comment Field Below ) REMOVE LIDODERM PATCH DAILY@2100 XX Last administered on 11/29/18at 20:48; Start 11/19/18 at 21:00 Pantoprazole Sodium (Protonix) 40 mg DAILY PO Last administered on 12/01/18at 08:36; Start 11/05/18 at 15:00 Patient Own Medication (Patient'S Own Med) clotrimazole betamethasone 0.05% ap... QHS XX ; Start 11/05/18 at 21:00; Stop 11/05/18 at 21:00; Status DC Simvastatin (Zocor) 20 mg QHS PO Last administered on 11/30/18at 21:15; Start 11/05/18 at 21:00 Sodium Chloride 1,000 ml @ 100 mls/hr Q10H IV Last administered on 11/08/18at 04:39; Start 11/07/18 at 08:30; Stop 11/08/18 at 11:36; Status DC Tamsulosin HCl (Flomax) 0.4 mg DAILY PO Last administered on 12/01/18at 08:36; Start 11/12/18 at 09:00 Trazodone HCl (Desyrel) 25 mg QHS PO Last administered on 11/06/18at 20:04; Start 11/06/18 at 21:00; Stop 11/07/18 at 10:58; Status DC Trazodone HCl (Desyrel) 25 mg QHSP PRN PO INSOMNIA; Start 11/05/18 at 14:15; Stop 11/06/18 at 12:30; Status DC Trazodone HCl (Desyrel) 25 mg QHSP PRN PO SLEEP; Start 11/06/18 at 16:45; Stop 11/12/18 at 14:26; Status DC Trazodone HCl (Desyrel) 50 mg QHS PO Last administered on 11/11/18at 20:32; Start 11/07/18 at 21:00; Stop 11/12/18 at 14:26; Status DC Trazodone HCl (Desyrel) 50 mg QHS PO Last administered on 11/30/18at 21:15; Start 11/24/18 at 21:00 Trazodone HCl (Desyrel) 100 mg QHS PO Last administered on 11/23/18at 20:20; Start 11/12/18 at 21:00; Stop 11/24/18 at 10:16; Status DC A-FIB/CHADSVASC A-FIB History Current/History of A-Fib/PAF?: No ADDISON URRUTIA MD December 01, 2018 11:05
[2018-12-01 14:00] VITALS: BP 129/60
[2018-12-01 20:00] VITALS: BP 132/62
[2018-12-01] MEDS: traZODone 50 MG TAB PO SCH (21:00)
[2018-12-01] MEDS: **NOTE PATIENT COMMENT** MISC XX SCH (21:00)
[2018-12-01] MEDS: SIMVASTATIN 20 MG TAB PO SCH (21:19)
[2018-12-02 06:00] VITALS: BP 134/62
[2018-12-02] MEDS: TAMSULOSIN 0.4 MG CAP PO SCH (08:32)
[2018-12-02] MEDS: **hydrALAZINE HCL** 25 MG TAB PO SCH (08:32)
[2018-12-02] MEDS: GABAPENTIN 100 MG CAP PO SCH (08:32)
[2018-12-02 08:33] VITALS: BP 134/62
[2018-12-02] MEDS: DOCUSATE SODIUM 100 MG CAP PO SCH (08:33)
[2018-12-02] MEDS: FLUoxetine 20 MG CAP PO SCH (08:33)
[2018-12-02] MEDS: METOPROLOL SUCC (TopROL XL) 50MG **XL** TAB PO SCH (08:33)
[2018-12-02] MEDS: PANTOPRAZOLE 40MG TAB (PROTONIX) PO SCH (08:33)
[2018-12-02] MEDS: LIDOCAINE 5% (LIDODERM) PATCH TD SCH ×2 (08:34→08:37)
[2018-12-02] MEDS: ANALGESIC BALM CRM 120 GM TOP SCH (08:34)
[2018-12-02] MEDS ORDERED: hydroCHLOROthiazide 25 MG TAB PO SCH (09:00)
[2018-12-02] MEDS ORDERED: METOPROLOL SUCC (TopROL XL) 50MG **XL** TAB PO SCH (09:00)
[2018-12-02] MEDS ORDERED: METO1TAB7 PO (11:31)
[2018-12-02] MEDS ORDERED: HYDR25TAB PO (11:31)
[2018-12-02] MEDS ORDERED: HYDR25TA PO (11:31)
[2018-12-02] MEDS ORDERED: FLOM0.4C39 PO (11:31)
[2018-12-02] MEDS ORDERED: TRAZO50TA PO (11:31)
[2018-12-02] MEDS ORDERED: FLUO20CA19 PO (11:31)
[2018-12-02] MEDS ORDERED: PANT40TA3 PO (11:31)
[2018-12-02] MEDS ORDERED: GABA-1171 PO (11:31)
[2018-12-02] MEDS ORDERED: SIMV20TA2 PO (11:31)
--- NOTE | 2018-12-02 15:13 | PMRDS ---
DATE OF ADMISSION: 11/05/2018 DATE OF DISCHARGE: 12/02/2018 CHIEF COMPLAINT/DISCHARGE DIAGNOSIS: Hemorrhagic stroke. HISTORY OF PRESENT ILLNESS: This is 73-year-old man with a past medical history of hypertension, hyperlipidemia, who on 11/18/2018 had sudden onset of dysarthria, left-sided facial droop, and weakness who took a total of 0.3 grams of aspirin and proceeded to fall and hit his head and was brought to [facility] ([facility] Emergency Department (ED), where a CT head (CTH) showed "4.2 x 1.8 cm acute right basal ganglia hemorrhage." Cervical spine CT was also performed given fall and head trauma, showing "degenerative changes with segmental central spinal stenosis and foraminal stenosis from C3-4 to C6-7." He was started on nicardipine drip for hypertensive emergency and transferred to [facility] to be treated on the neurologic intensive care unit (ICU), where the drip was discontinued, and he was placed on oral medications. CTA head (cut off) minimal interval increase in size of hemorrhage within the right basal ganglia, currently measuring up to 4.8 cm, previously measured 4.6 cm, associated with surrounding edema and mild mass effect on the adjacent brain parenchyma and right lateral ventricle. No midline shift... No new intracranial hemorrhage or evidence of acute infarction... Major intracranial arteries and arteries in the neck are patent." He was instructed to stop taking aspirin and followup with a urologist for his incontinence. He was evaluated by speech/language pathology (ANGLE BENDER) and found to have significant dysphagia and also found to have deficits in activities of daily living (ADLs), gait, and occupational therapy (OT)/physical therapy (PT). He was deemed medically appropriate for discharge to acute rehabilitation unit (ARU) on 11/05/2018. PAST MEDICAL HISTORY: As per history of present illness (HPI). HOSPITAL COURSE: The patient was admitted and enrolled in a comprehensive PT, OT, speech/language pathology program. Weekly team meetings were held to discuss his progress, and he received 24-hour nursing supervision. He was started on paroxetine for motor recovery in the setting of a recent stroke, and his blood pressures were managed with different blood pressure medications with the help of internal medicine. His admission urinalysis (UA) and urine culture were negative. He was started on Flomax for suspected BPH with mild improvement in his incontinence; however, the patient reported a couple of years of incontinence prior to his stroke and was concerned about how to alleviate this. Admission Dopplers were negative for deep vein thromboses (DVTs), and he was administered thromboembolic deterrent (SYLVIE) stockings to help with DVT prophylaxis. Initially the patient had tremendous amounts of difficulty sleeping, for which he was started on trazodone 100 mg at bedtime and eventually tapered to 50 mg at bedtime with overall sleep improvement. He had right-sided neck pain, which was relieved with methylsalicylate, and low back pain, which Lidoderm patch helped as well. The patient made significant gains in PT, OT, speech/language pathology and was deemed medically and physically stable to return to home on day of discharge with home services. DISCHARGE MEDICATIONS: - duloxetine 20 daily - gabapentin 100 three times a day - hydralazine 25 by mouth three times a day - hydrochlorothiazide 56 by mouth daily - metoprolol 56 mg by mouth twice a day - pantoprazole 40 daily - simvastatin 20 at bedtime - Flomax 0.4 mg daily - trazodone 50 at bedtime FUNCTIONAL HISTORY UPON DISCHARGE: He was independent in all functional transfers, able to ambulate 300 feet with a single-point cane, negotiate stairs, and was independent in toileting, grooming, and dressing. Thank you for this referral
== END 2018-12-02 12:28 | disposition home health service (06) | DRG 57 ==
LOC: M PM&R 14:25
PROVIDERS: ADMIT Physical Medicine & Rehabilitation; ATTEND Physical Medicine & Rehabilitation
DX: I69.391 Dysphagia following cerebral infarction (principal); N17.9 Acute kidney failure, unspecified; I69.352 Hemiplegia and hemiparesis following cerebral infarction affecting left dominant side; I69.398 Other sequelae of cerebral infarction; R26.89 Other abnormalities of gait and mobility; I10 Essential (primary) hypertension; E78.5 Hyperlipidemia, unspecified; M54.5 Low back pain; M48.02 Spinal stenosis, cervical region; Z88.5 Allergy status to narcotic agent; Z79.82 Long term (current) use of aspirin; Z79.899 Other long term (current) drug therapy; I69.322 Dysarthria following cerebral infarction; G47.00 Insomnia, unspecified; F32.9 Major depressive disorder, single episode, unspecified; F41.9 Anxiety disorder, unspecified; R19.7 Diarrhea, unspecified

== ENCOUNTER → 2018-12-26 | Outpatient (REF) | payer MEDICARE ==
[~2018-12-26] MED LIST changes: +APAP325T4 PO; +COLA100C5 PO; +FLOM0.4C39 PO; +FLUO20CA19 PO; +GABA-1171 PO; +HYDR25TA PO; +HYDR25TAB PO; +HYDR50TAB PO; +LISI-538 PO; +METO1TAB7 PO; +PANT40TA3 PO; +TRAZ1TAB10 PO
[2018-12-26 19:22] LABS: APPEARANCE, URINE CLEAR (CLEAR); BACTERIA, URINE AUTO NEGATIVE (NEGATIVE); BILIRUBIN, URINE AUTO NEGATIVE (NEGATIVE); BLOOD, URINE BLOOD NEGATIVE (NEGATIVE); COLOR, URINE YELLOW (YELLOW); GLUCOSE, URINE (UA) AUTO NEGATIVE (NEGATIVE); KETONE, URINE AUTO NEGATIVE (NEGATIVE); LEUKOCYTE ESTERASE, URINE AUTO NEGATIVE (NEGATIVE); MUCUS, URINE SMALL (NEGATIVE); NITRITE, URINE AUTO NEGATIVE (NEGATIVE); PROTEIN, URINE AUTO NEGATIVE (NEGATIVE); RBC, URINE AUTO 0 /HPF (0-3); SPECIFIC GRAVITY URINE AUTO 1.019 (1.002-1.035); SQUAMOUS EPITHELIAL CELL UR AU 0 /HPF (0-6); UROBILINOGEN, URINE AUTO 0.2 mg/dL (0.0-2.0); WBC, URINE AUTO 1 /HPF (0-3)
== END ==
LOC: M SMT 16:45
PROVIDERS: ATTEND Nurse Practitioner Women's Health
DX: R32 Unspecified urinary incontinence (principal)
CPT/HCPCS: 51798; 81001; 87086; G0463

== ENCOUNTER 2019-02-17 13:00 | Outpatient (RCR) | payer MEDICARE | END 2019-02-18 | LOC: M PT 13:00 | PROVIDERS: ATTEND Nurse Practitioner Adult Health | DX: Z51.89 Encounter for other specified aftercare (principal); I61.9 Nontraumatic intracerebral hemorrhage, unspecified ==

== ENCOUNTER 2019-03-03 14:54 | Inpatient (IN) | payer MEDICARE ==
[~2019-03-03] VITALS: Ht 180.3 cm; Wt 92.9 kg
[~2019-03-03 14:54] MED LIST changes: -LISI20TA PO; +LISI20TA19 PO; -SIMV20TA2 PO; +SIMV20TA22 PO
[2019-03-03] MEDS ORDERED: NS 1,000 ML IV ONE (15:30)
[2019-03-03 15:45] LABS: BASO % 0.5 % (0.0-1.0); EOS # 0.1 10^3/uL (0.0-0.50); EOS % 1.6 % (0.0-3.0); HEMATOCRIT 37.4 % (42.0-52.0); HEMOGLOBIN 12.7 g/dl (13.5-17.5); LYMPH # 1.3 10^3/uL (1.5-4.5); MEAN CORPUSCULAR HEMOGLOBIN 32.3 pg (27.0-33.0); MEAN CORPUSCULAR VOLUME 95.2 fl (80.0-96.0); MONO # 0.5 10^3/uL (0.0-0.8); MONO % 7.8 % (0.0-5.0); NEUTROPHILS # 4.3 10^3/uL (1.8-7.7); NEUTROPHILS % 68.5 % (36.0-66.0); PLATELET COUNT, AUTOMATED 120 10^3/uL (150-450); RED BLOOD COUNT 3.93 10^6/uL (4.30-6.10); WHITE BLOOD COUNT 6.3 10^3/uL (4.0-10.0)
[2019-03-03 15:48] LABS: INR 1.11
[2019-03-03 16:03] LABS: BLOOD UREA NITROGEN 47 MG/DL (7-18); CALCIUM LEVEL 10.1 MG/DL (8.8-10.2); CARBON DIOXIDE LEVEL 27 MEQ/L (21-32); CHLORIDE LEVEL 109 MEQ/L (98-107); CREATININE FOR GFR 2.18 MG/DL (0.70-1.30); FREE T4 1.27 NG/DL (0.76-1.46); GLOMERULAR FILTRATION RATE 31.7 (>42); GLUCOSE, FASTING 123 MG/DL (70-100); POTASSIUM SERUM 4.2 MEQ/L (3.5-5.1); SODIUM LEVEL 143 MEQ/L (136-145)
[2019-03-03] MEDS ORDERED: OXYB5TAB10 PO (16:06)
[2019-03-03] MEDS ORDERED: FINA5TAB2 PO (16:06)
[2019-03-03] MEDS ORDERED: LISI20TA19 PO (16:06)
--- NOTE | 2019-03-03 17:41 | HPEPDOC ---
General Date of Admission 03/03/19 Date of Service: Mar 03, 2019 Chief Complaint The patient is a 73-year-old male admitted with a reason for visit of Blood Pressure Problem. 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 He was at the out patient PT at the hospital today and while he was doing his exercises he felt dizzy and light headed. He sat down and the PT took his bp which was about 90/60 then he was made to standup and his Bp rechecked which was then 65/45 so he was sent down to the ED. In the ED he complained of dizziness on standing up. He recently had some medications started for urinary incontinence about 2 weeks ago. It was also noted that his pulse rate was going down to 38s at times . it was sinus adolfo. Blood work in the ED showed new elevation of creatinine. Patient was admitted for DARRIAN, orthostatic hypotension with possibly symptomatic bradycardia. Home Medications Scheduled Docusate Sodium (Colace) 100 Mg Capsule, 100 MG PO BID, (Reported) Fluoxetine Hcl (Fluoxetine HCl) 20 Mg Capsule, 20 MG PO DAILY Gabapentin (Gabapentin) 100 Mg Capsule, 100 MG PO TID Hydralazine HCl (Hydralazine HCl) 25 Mg Tablet, 25 MG PO TID Hydrochlorothiazide (Hydrochlorothiazide) 50 Mg Tablet, 50 MG PO DAILY, (Reported) DOSE INCREASED AT [facility] Metoprolol Succinate (Metoprolol Succinate) 50 Mg Tab.er.24h, 50 MG PO BID Pantoprazole Sodium (Pantoprazole Sodium) 40 Mg Tablet.dr, 40 MG PO DAILY Simvastatin (Simvastatin) 20 Mg Tab, 20 TAB PO QHS, (Reported) Trazodone HCl (Trazodone HCl) 50 Mg Tablet, 50 MG PO QHS Scheduled PRN Acetaminophen (Acetaminophen) 325 Mg Tablet, 650 MG PO Q4H PRN for PAIN, (Reported) Miscellaneous Medications Finasteride (Finasteride) 5 Mg Tablet, (Reported) Lisinopril/Hydrochlorothiazide (Lisinopril-Hctz 20-12.5 mg Tab) 1 Each Tablet, (Reported) Oxybutynin Chloride (Oxybutynin Chloride) 5 Mg Tablet, (Reported) Allergies Coded Allergies: codeine (Verified Adverse Reaction, Unknown, nausea, 11/01/18) Past Medical History Medical History PURE HYPERCHOLESTEROLEMIA LOWER BACK PAIN ABNORMAL WEIGHT GAIN STOKE- NOVEMBER 01, 2018 HTN KX OF KIDNEY STONES urgge incontinence, BPH Surgical History BACK SURGERY 2007 COLONOSCOPY 2007 APPENDECTOMY NOVEMBER 2017 KNEE SURGERY R KNEE 20-30 YEARS AGO CYSTOSCOPY 12/2018 Family History FATHER: 86 YRS, OLD AGE MOTHER: 76 YRS, HEART FAILURE SIBLINGS: BROTHER WITH CHF 1 SON(S) , 1 DAUGHTER(S) - HEALTHY. Social History * Smoker: Denies Alcohol: Denies Drugs: denies A-FIB/CHADSVASC A-FIB History Current/History of A-Fib/PAF?: No Review of Systems Constitutional: Denies: Chills, Fever, Night Sweats Eyes: Denies: Pain, Vision change ENT: Denies: Head Aches, Ear Pain, Dysphagia Skin: Denies: Rash, Lesions, Breakdown Pulmonary: Denies: Dyspnea, Cough Cardiovascular: Denies: Chest Pain, Palpitations, Orthopnea, Paroxysmal Noc. Dyspnea, Lt Headedness Gastrointestinal: Denies: Nausea, Vomiting, Abdominal Pain, Diarrhea Genitourinary: Reports: Incontinence Hematologic: Denies: Bruising, Bleeding Excessively Musculoskeletal: Denies: Neck Pain, Back Pain, Joint Pain, Muscle Pain, Spasms Neurological: Reports: Weakness (left upper extremity) Psych: Reports: Mood Normal; Denies: Depression, Memory Issues Physical Examination General Exam: Positive: Alert, Cooperative, No Acute Distress Eye Exam: Positive: PERRLA, Conjunctiva & lids normal, EOMI; Negative: Sclera icteric ENT Exam: Positive: Atraumatic, Mucous membr. moist/pink, Pharynx Normal Neck Exam: Positive: Supple; Negative: JVD, thyromegaly Chest Exam: Positive: Clear to auscultation, Normal air movement Heart Exam: Positive: Bradycardic, Regular Rhythm, Normal S1, Normal S2 Telemetry: Positive: Sinus, Bradycardia Abdomen Exam: Positive: Normal bowel sounds, Soft; Negative: Tenderness, Hepatospenomegaly Extremity Exam: Positive: Normal pulses; Negative: Clubbing, Cyanosis, Edema Neuro Exam: Positive: Normal Speech, Other (left facial droop and left upper extremity power less than right.) Psych Exam: Positive: Memory Intact, Oriented x 3 Vital Signs Vital Signs Date Time Temp Pulse Resp B/P (MAP) Pulse Ox O2 Delivery O2 Flow Rate FiO2 03/03/19 16:53 100/78 (85) 03/03/19 16:16 50 95 03/03/19 14:55 97.6 16 Room Air Laboratory Data Labs 24H Laboratory Tests 2 03/03/19 15:12: Immature Granulocyte % (Auto) 0.6, White Blood Count 6.3, Red Blood Count 3.93L, Hemoglobin 12.7L, Hematocrit 37.4L, Mean Corpuscular Volume 95.2, Mean C orpuscular Hemoglobin 32.3, Mean Corpuscular Hemoglobin Concent 34.0, Red Cell Distribution Width 12.2, Platelet Count 120L, Neutrophils (%) (Auto) 68.5H, Lymphocytes (%) (Auto) 21.0L, Monocytes (%) (Auto) 7.8H, Eosinophils (%) (Auto) 1.6, Basophils (%) (Auto) 0.5, Neutrophils # (Auto) 4.3, Lymphocytes # (Auto) 1.3L, Monocytes # (Auto) 0.5, Eosinophils # (Auto) 0.1, Basophils # (Auto) 0.0, Nucleated Red Blood Cells % (auto) 0.0, Prothrombin Time 14.0, Prothromb Time International Ratio 1.11, Anion Gap 7L, Glomerular Filtration Rate 31.7L, Blood Urea Nitrogen 47H, Creatinine 2.18H, Sodium Level 143, Potassium Level 4.2, Chloride Level 109H, Carbon Dioxide Level 27, Calcium Level 10.1, Magnesium Level 2.0, Thyroid Stimulating Hormone (TSH) 0.610, Free Thyroxine 1.27 CBC/BMP Laboratory Tests 03/03/19 15:12 Red Blood Count 3.93 L, Mean Corpuscular Volume 95.2, Mean Corpuscular Hemoglobin 32.3, Mean Corpuscular Hemoglobin Concent 34.0, Red Cell Distribution Width 12.2, Neutrophils (%) (Auto) 68.5 H, Lymphocytes (%) (Auto) 21.0 L, Monocytes (%) (Auto) 7.8 H, Eosinophils (%) (Auto) 1.6, Basophils (%) (Auto) 0.5, Neutrophils # (Auto) 4.3, Lymphocytes # (Auto) 1.3 L, Monocytes # (Auto) 0.5, Eosinophils # (Auto) 0.1, Basophils # (Auto) 0.0, Calcium Level 10.1 Assessment/Plan 73M pmh HTN, HLD who had a 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 He was at the out patient PT at the hospital today and while he was doing his exercises he felt dizzy and light headed. He sat down and the PT took his bp which was about 90/60 then he was made to standup and his Bp rechecked which was then 65/45 so he was sent down to the ED. In the ED he complained of dizziness on standing up. He recently had some medications started for urinary incontinence about 2 weeks ago. It was also noted that his pulse rate was going down to 38s at times . it was sinus adolfo. Blood work in the ED showed new elevation of creatinine. Patient was admitted for DARRIAN, orthostatic hypotension with possibly symptomatic bradycardia. Dizziness due to Orthostatic hypotension this is medication related could be due to finasteride on the back ground of multiple antihypertensive medications given IVF 1 liter will monitor will decreased antihypertensives and diuretics. will try to continue the finastaride as this really helps with the pateint's incontinance and he wants to try and continue it. 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 Hyperlipidemia continue statin Plan / VTE VTE Prophylaxis Ordered?: Yes AVANI COLEY MD Mar 03, 2019 17:04
[2019-03-03] MEDS ORDERED: TRAZ-252 PO (17:48)
[2019-03-03] MEDS ORDERED: PANT-23 PO (17:48)
[2019-03-03] MEDS ORDERED: FLUO1TAB3 PO (17:48)
[2019-03-03] MEDS ORDERED: HYDR-3910 PO (17:48)
[2019-03-03] MEDS ORDERED: GABA-1171 PO (17:48)
[2019-03-03] MEDS ORDERED: METO1TAB7 PO (17:48)
[2019-03-03] MEDS ORDERED: FLUO20CA20 PO (17:48)
[2019-03-03] MEDS ORDERED: HYDR25TAB PO (17:51)
[2019-03-03 18:11] LABS: CK-MB VALUE MASS < 1.0 NG/ML (<3.6); CPK CREATINE PHOSPHOKINASE 50 U/L (39-308); TROPONIN I < 0.02 NG/ML (< 0.10)
[2019-03-03] MEDS ORDERED: PILL CUTTER 1 EACH XX PRN (18:30)
--- NOTE | 2019-03-03 18:47 | REPVR ---
EXAM: US Retroperitoneal Limited, Kidneys EXAM DATE/TIME: 03/03/2019 6:23 PM CLINICAL HISTORY: 73 years old, male; Abnormal findings; Abnormal lab test; Abnormal kidney function lab tests; Additional info: Carlito TECHNIQUE: Imaging protocol: Real-time ultrasound of the retroperitoneum with image documentation. Examination was focused on the kidneys. COMPARISON: CT ABD PELVIS W/O CONTRAST 12/08/2017 6:46 PM FINDINGS: Right kidney: Right kidney measures 11 x 5 x 5.7 cm. Left kidney: Left kidney measures 10.8 x 4.1 x 5 cm. Prostate: Prostate measures 4.4 x 3.4 x 4.3 cm indicating mild to moderate enlargement. Bladder: Bilateral bladder diverticuli. 467 cc postvoid residual urine volume. Bladder otherwise unremarkable. IMPRESSION: 1. Bilateral bladder diverticuli. 467 cc postvoid residual urine volume. 2. Normal upper tracts. Electronically signed by: Alessandro Messer On 03/03/2019 18:47:00 PM
[2019-03-03 20:00] VITALS: BP_SYST 139; BP_SYST 143; BP_SYST 158; BP_DIAS 67; BP_DIAS 71; BP_DIAS 76
[2019-03-03 21:00] VITALS: BP 158/67
[2019-03-03] MEDS: **hydrALAZINE HCL** 25 MG TAB PO SCH ×2 (21:00→21:29)
[2019-03-03] MEDS: GABAPENTIN 100 MG CAP PO SCH (21:29)
[2019-03-03] MEDS: SIMVASTATIN 20 MG TAB PO SCH (21:29)
[2019-03-03] MEDS: oxyBUTYnin 5 MG TAB PO SCH (21:29)
[2019-03-03] MEDS: FINASTERIDE 5 MG TAB PO SCH (21:29)
[2019-03-03] MEDS: traZODone 50 MG TAB PO SCH (23:30)
[2019-03-04 00:34] VITALS: BP 97/48
[2019-03-04 05:59] LABS: BASO % 0.6 % (0.0-1.0); EOS # 0.1 10^3/uL (0.0-0.50); EOS % 2.4 % (0.0-3.0); HEMATOCRIT 32.1 % (42.0-52.0); LYMPH # 1.5 10^3/uL (1.5-4.5); LYMPH % 29.2 % (24.0-44.0); MEAN CORPUSCULAR HGB CONC 33.3 g/dl (32.0-36.5); MONO # 0.4 10^3/uL (0.0-0.8); MONO % 8.1 % (0.0-5.0); NEUTROPHILS % 59.1 % (36.0-66.0); PLATELET COUNT, AUTOMATED 100 10^3/uL (150-450); RED BLOOD COUNT 3.45 10^6/uL (4.30-6.10)
[2019-03-04 06:00] VITALS: BP_SYST 100; BP_SYST 104; BP_SYST 108; BP_DIAS 50; BP_DIAS 55; BP_DIAS 57
[2019-03-04 06:08] LABS: HEMOGLOBIN 10.7 g/dl (13.5-17.5)
[2019-03-04 06:23] LABS: CALCIUM LEVEL 9.5 MG/DL (8.8-10.2); CREATININE FOR GFR 1.97 MG/DL (0.70-1.30); GLOMERULAR FILTRATION RATE 35.7 (>42); POTASSIUM SERUM 3.7 MEQ/L (3.5-5.1)
--- NOTE | 2019-03-04 08:34 | REP ---
REASON: Syncopal episode. COMPARISON: 11/01/2018 The technique utilized in obtaining the radiograph has magnified the cardiac silhouette and accentuated the interstitial markings. There is cardiomegaly accentuated by technique. There is basilar fibrotic changes accentuated by technique status quo. No acute patchy parenchymal opacities or pleural effusions have developed. There is no change in the osseous structures. IMPRESSION:No evidence of acute cardiopulmonary disease or significant change compared to 11/01/2018. Electronically Signed by Christian Lugo DO 03/04/2019 09:46 A
--- NOTE | 2019-03-04 08:53 | REP ---
REASON: Syncope. COMPARISON: 11/01/2018 The large intraparenchymal hemorrhage in the deep white matter involving the right basal ganglia has resolved almost completely. There is no evidence of an acute intracranial hemorrhagic or nonhemorrhagic event. There is no shift in midline structures. Ventricular compression seen previously by the intraparenchymal hemorrhage has resolved. There are no extra-axial fluid collections. There is cerebral and cerebellar atrophic change, status quo. There is no change in the appearance of the skull. IMPRESSION: No acute disease. Findings as described above. Electronically Signed by Christian Lugo DO 03/04/2019 09:49 A
[2019-03-04] MEDS: ENOXAPARIN 40 MG/0.4 ML SYRINGE (J1650) SC SCH (09:00)
[2019-03-04] MEDS: **hydrALAZINE HCL** 25 MG TAB PO SCH ×3 (09:00→20:33)
[2019-03-04] MEDS ORDERED: PREVNAR 13 VACCINE SYRINGE (CPT CODE:90670) IM ONE (09:00)
[2019-03-04] MEDS: PANTOPRAZOLE 40MG TAB (PROTONIX) PO SCH (09:41)
[2019-03-04] MEDS: oxyBUTYnin 5 MG TAB PO SCH ×2 (09:44→20:38)
[2019-03-04] MEDS: GABAPENTIN 100 MG CAP PO SCH ×3 (09:48→20:38)
[2019-03-04] MEDS: FLUoxetine 20 MG CAP PO SCH (09:51)
--- NOTE | 2019-03-04 09:51 | IPNPDOC ---
Subjective Date Seen The patient was seen on 03/04/19. Subjective Chief Complaint/HPI Feels better, No further dizziness, though continues to have sinus bradycardia and BP still low normal but better than yesterday , no fever or chills, no chest pain or sob, no abdominal pain , nausea or vomiting or diarrhea. Today spoke with daughter at bedside. Daughter is concerned because he has been having increasing memory issues over the past months,. forgets his doctors appointments and other routine things, also he has been eating less and has lost significant amount of weight, Also she tells me that his speech is more slurred and at home . to me it appeared the same as yesterday. He has also been having trouble with walking and has been stumbling a lot for the past 2 weeks. which could be due to low Bps and orthostatic hypotension that may have been going on for some time. Objective Physical Examination General Exam: Positive: Alert, Cooperative, No Acute Distress Eye Exam: Positive: PERRLA, Conjunctiva & lids normal, EOMI; Negative: Sclera icteric ENT Exam: Positive: Atraumatic, Mucous membr. moist/pink, Pharynx Normal Neck Exam: Positive: Supple; Negative: JVD, thyromegaly Chest Exam: Positive: Clear to auscultation, Normal air movement Heart Exam: Positive: Bradycardic, Regular Rhythm, Normal S1, Normal S2 Telemetry: Positive: Sinus, Bradycardia Abdomen Exam: Positive: Normal bowel sounds, Soft; Negative: Tenderness, Hepatospenomegaly Extremity Exam: Positive: Normal pulses; Negative: Clubbing, Cyanosis, Edema Neuro Exam: Positive: Normal Speech, Other (left facial droop and left upper extremity power less than right.) Psych Exam: Positive: Memory Intact, Oriented x 3 Assessment /Plan Assessment 73M pmh HTN, HLD who had a 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 He was at the out patient PT at the hospital today and while he was doing his exercises he felt dizzy and light headed. He sat down and the PT took his bp which was about 90/60 then he was made to standup and his Bp rechecked which was then 65/45 so he was sent down to the ED. In the ED he complained of dizziness on standing up. He recently had some medications started for urinary incontinence about 2 weeks ago. It was also noted that his pulse rate was going down to 38s at times . it was sinus adolfo. Blood work in the ED showed new elevation of creatinine. Patient was admitted for DARRIAN, orthostatic hypotension with possibly symptomatic bradycardia. Memory issues, increased slurring, confusion will get an MRI Dizziness due to Orthostatic hypotension this is medication related could be due to finasteride on the back ground of multiple antihypertensive medications will monitor will decreased antihypertensives and diuretics. will try to continue the finastaride as this really helps with the pateint's incontinance and he wants to try and continue it. DARRIAN probably due to overdiuresis on the back ground of lisinopril There may also be obstructivure uropathy adding to the issues as seen in renal US with BPH and high PVR. will hold HCTZ and lisinopril BPH and urge incontinence Renal US show bilateral bladder diverticulum and PVR of 467 cc continue oxybutinin and finasteride Bladder scan prn. Sinus bradycardia patient tells me he has an atheletic heart and his pulse rate is always low however it is dropping to 30s when he is awake this could be making him symptomatic also will stop metoprolol Hemorrhagic sroke in october 2018 with residual left paresis mostly in the left upper extremity and facial droop continue gabapentin. Hyperlipidemia continue statin Plan/VTE VTE Prophylaxis Ordered?: Yes VS, I&O, 24H, Fishbone Vital Signs/I&O Vital Signs Date Time Temp Pulse Resp B/P (MAP) Pulse Ox O2 Delivery O2 Flow Rate FiO2 03/04/19 06:00 46 100/50 (67) 50 104/55 (71) 53 108/57 (74) 03/04/19 06:00 97.6 18 95 03/03/19 14:55 Room Air I&O- Last 24 Hours up to 6 AM 03/04/19 06:00 Intake Total 1360 ml Output Total 500 ml Balance 860 ml Laboratory Data 24H LABS Laboratory Tests 2 03/03/19 15:12: Immature Granulocyte % (Auto) 0.6, White Blood Count 6.3, Red Blood Count 3.93L, Hemoglobin 12.7L, Hematocrit 37.4L, Mean Corpuscular Volume 95.2, Mean Corpuscular Hemoglobin 32.3, Mean Corpuscular Hemoglobin Concent 34.0, Red Cell Distribution Width 12.2, Platelet Count 120L, Neutrophils (%) (Auto) 68.5H, Lymphocytes (%) (Auto) 21.0L, Monocytes (%) (Auto) 7.8H, Eosinophils (%) (Auto) 1.6, Basophils (%) (Auto) 0.5, Neutrophils # (Auto) 4.3, Lymphocytes # (Auto) 1.3L, Monocytes # (Auto) 0.5, Eosinophils # (Auto) 0.1, Basophils # (Auto) 0.0, Nucleated Red Blood Cells % (auto) 0.0, Prothrombin Time 14.0, Prothromb Time International Ratio 1.11, Anion Gap 7L, Glomerular Filtration Rate 31.7L, Blood Urea Nitrogen 47H, Creatinine 2.18H, Sodium Level 143, Potassium Level 4.2, Chloride Level 109H, Carbon Dioxide Level 27, Calcium Level 10.1, Total Creatine Kinase 50, Magnesium Level 2.0, Creatine Kinase MB < 1.0, Creatine Kinase MB Relative Index 2.00, Troponin I < 0.02, Thyroid Stimulating Hormone (TSH) 0.610, Free Thyroxine 1.27 03/03/19 19:06: Urine Color YELLOW, Urine Appearance HAZY, Urine pH 5.0, Urine Specific [place] 1.015, Urine Protein NEGATIVE, Urine Glucose (UA) NEGATIVE, Urine Ketones NEGATIVE, Urine Blood NEGATIVE, Urine Nitrite NEGATIVE, Urine Bilirubin NEGATIVE, Urine Urobilinogen 0.2, Urine Leukocyte Esterase NEGATIVE, Urine WBC (Auto) 1, Urine RBC (Auto) 0, Urine Hyaline Casts (Auto) 0, Urine Bacteria (Auto) NEGATIVE, Urine Squamous Epithelial Cells 0, Urine Sperm (Auto) 03/04/19 05:28: Immature Granulocyte % (Auto) 0.6, White Blood Count 5.0, Red Blood Count 3.45L, Hemoglobin 10.7#L, Hematocrit 32.1L, Mean Corpuscular Volume 93.0, Mean Corpuscular Hemoglobin 31.0, Mean Corpuscular Hemoglobin Concent 33.3, Red Cell Distribution Width 12.3, Platelet Count 100L, Neutrophils (%) (Auto) 59.1, Lymphocytes (%) (Auto) 29.2, Monocytes (%) (Auto) 8.1H, Eosinophils (%) (Auto) 2.4, Basophils (%) (Auto) 0.6, Neutrophils # (Auto) 3.0, Lymphocytes # (Auto) 1.5, Monocytes # (Auto) 0.4, Eosinophils # (Auto) 0.1, Basophils # (Auto) 0.0, Nucleated Red Blood Cells % (auto) 0.0, Anion Gap 6L, Glomerular Filtration Rate 35.7L, Blood Urea Nitrogen 43H, Creatinine 1.97H, Sodium Level 144, Potassium Level 3.7, Chloride Level 111H, Carbon Dioxide Level 27, Calcium Level 9.5 CBC/BMP Laboratory Tests 03/03/19 15:12 Red Blood Count 3.93 L, Mean Corpuscular Volume 95.2, Mean Corpuscular Hemoglobin 32.3, Mean Corpuscular Hemoglobin Concent 34.0, Red Cell Distribution Width 12.2, Neutrophils (%) (Auto) 68.5 H, Lymphocytes (%) (Auto) 21.0 L, Monocytes (%) (Auto) 7.8 H, Eosinophils (%) (Auto) 1.6, Basophils (%) (Auto) 0.5, Neutrophils # (Auto) 4.3, Lymphocytes # (Auto) 1.3 L, Monocytes # (Auto) 0.5, Eosinophils # (Auto) 0.1, Basophils # (Auto) 0.0, Calcium Level 10.1, Total Creatine Kinase 50 03/04/19 05:28 Red Blood Count 3.45 L, Mean Corpuscular Volume 93.0, Mean Corpuscular Hemoglobin 31.0, Mean Corpuscular Hemoglobin Concent 33.3, Red Cell Distribution Width 12.3, Neutrophils (%) (Auto) 59.1, Lymphocytes (%) (Auto) 29.2, Monocytes (%) (Auto) 8.1 H, Eosinophils (%) (Auto) 2.4, Basophils (%) (Auto) 0.6, Neutrophils # (Auto) 3.0, Lymphocytes # (Auto) 1.5, Monocytes # (Auto) 0.4, Eosinophils # (Auto) 0.1, Basophils # (Auto) 0.0, Calcium Level 9.5 AVANI COLEY MD Mar 04, 2019 09:51
[2019-03-04 14:00] VITALS: BP_SYST 121; BP_SYST 127; BP_SYST 134; BP_DIAS 63; BP_DIAS 64; BP_DIAS 90
--- NOTE | 2019-03-04 17:52 | ECGEPIP ---
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
--- NOTE | 2019-03-04 18:33 | REP ---
MRI brain without contrast: Clinical indication: Increasing confusion, increasing slurring of speech x2 weeks. Comparison: CT head without contrast of 03/03/2019 and 11/01/2018. Technique: MRI of the brain was performed without contrast utilizing axial T2, T1, FLAIR, diffusion, and GRE sequences as well as sagittal T1 FLAIR. Findings: There is an 18 x 10 mm extra-axial dura based lesion along the left parietal convexity superiorly with punctate focus of susceptibility on gradient images suggestive of meningioma with tiny calcification. This lesion is slightly T2 hyperintense and T1 isointense to the kuhn matter. This lesion shows mild restricted diffusion. This noncalcified lesion is better seen on today's examination. There is no restricted diffusion to suggest acute ischemia or infarction. There is a chronic lacunar infarct within the right cerebellar hemisphere. There are scattered T2 hyperintensities within the subcortical and periventricular white matter which is nonspecific, but suggestive of microvascular ischemic disease. There is T2 FLAIR hyperintensity within the splenium of the corpus callosum without definite associated restricted diffusion, which is also nonspecific. There is linear T1 and T2 hypointensity representing linear residua hemosiderin staining of prior large right ganglial hematoma. There is no evidence of new hemorrhage. There is similar prominence of the ventricles and sulci compatible with cerebral volume loss. There is mild ex vacuo dilatation of the right lateral ventricle. The orbital contents are intact. There is a small amount of fluid in the right mastoid air cells. The paranasal sinuses and left mastoid air cells are clear. Impression: 1. Linear residual hemosiderin staining of old right basal ganglia hematoma corresponding to residual linear hyperdensity on CT. No new acute hemorrhage. 2. No acute ischemia or infarction. Chronic lacunar infarct within the right cerebellar hemisphere. 3. Nonspecific periventricular and subcortical white matter changes suggestive of microvascular ischemic disease. Nonspecific white matter changes within the splenium of the corpus callosum. 4. 18 x 10 mm extra-axial lesion along the left parietal convexity, likely representing a meningioma. 5. Small amount of fluid within the right mastoid air cells. Electronically Signed by Adriana Lemus MD 03/04/2019 06:50 P
[2019-03-04] MEDS: FINASTERIDE 5 MG TAB PO SCH (20:37)
[2019-03-04] MEDS: traZODone 50 MG TAB PO SCH (20:38)
[2019-03-04] MEDS: SIMVASTATIN 20 MG TAB PO SCH (20:38)
[2019-03-04 22:00] VITALS: BP 112/57
[2019-03-05 06:00] VITALS: BP 133/75
[2019-03-05 07:58] LABS: CALCIUM LEVEL 9.7 MG/DL (8.8-10.2); CREATININE FOR GFR 1.29 MG/DL (0.70-1.30); GLOMERULAR FILTRATION RATE 58.1 (>42); POTASSIUM SERUM 3.8 MEQ/L (3.5-5.1)
[2019-03-05 08:12] LABS: BASO % 0.5 % (0.0-1.0); EOS # 0.2 10^3/uL (0.0-0.50); EOS % 2.9 % (0.0-3.0); HEMATOCRIT 32.3 % (42.0-52.0); LYMPH # 1.6 10^3/uL (1.5-4.5); LYMPH % 27.9 % (24.0-44.0); MEAN CORPUSCULAR HEMOGLOBIN 31.4 pg (27.0-33.0); MEAN CORPUSCULAR HGB CONC 34.1 g/dl (32.0-36.5); MEAN CORPUSCULAR VOLUME 92.3 fl (80.0-96.0); MONO # 0.5 10^3/uL (0.0-0.8); MONO % 9.3 % (0.0-5.0); NEUTROPHILS # 3.3 10^3/uL (1.8-7.7); PLATELET COUNT, AUTOMATED 103 10^3/uL (150-450); WHITE BLOOD COUNT 5.6 10^3/uL (4.0-10.0)
[2019-03-05] MEDS: FLUoxetine 20 MG CAP PO SCH (08:28)
[2019-03-05] MEDS: PANTOPRAZOLE 40MG TAB (PROTONIX) PO SCH (08:30)
[2019-03-05] MEDS: oxyBUTYnin 5 MG TAB PO SCH (08:30)
[2019-03-05] MEDS: GABAPENTIN 100 MG CAP PO SCH (08:30)
[2019-03-05] MEDS: ENOXAPARIN 40 MG/0.4 ML SYRINGE (J1650) SC SCH (08:31)
[2019-03-05] MEDS ORDERED: METO1TAB32 PO (08:53)
[2019-03-05] MEDS ORDERED: METOPROLOL SUCC *XL* 12.5MG PER 1/2 TAB (TopROL *XL*) PO SCH (09:00)
[2019-03-05] MEDS ORDERED: METOPROLOL SUCC *XL* 25MG TAB (TopROL *XL*) PO SCH (09:00)
[2019-03-05 09:46] VITALS: BP 133/75
--- NOTE | 2019-03-05 14:42 | DS.PDOC ---
Discharge Summary General Date of Admission Mar 03, 2019 at 17:20 Date of Discharge 03/05/19 Discharge Summary PROCEDURES PERFORMED DURING STAY: [None]. 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 He was at the out patient PT at the hospital today and while he was doing his exercises he felt dizzy and light headed. He sat down and the PT took his bp which was about 90/60 then he was made to standup and his Bp rechecked which was then 65/45 so he was sent down to the ED. In the ED he complained of dizziness on standing up. He recently had some medications started for urinary incontinence about 2 weeks ago. It was also noted that his pulse rate was going down to 38s at times . it was sinus adolfo. Blood work in the ED showed new elevation of creatinine. Patient was admitted for DARRIAN, orthostatic hypotension with possibly symptomatic bradycardia. Memory issues, increased slurring, confusion MRI showed area of gliosis in the area of old hemorrhage No new changes The above symptoms may have been due to on going hypotension at home possibly also has mild post CVA dementia Dizziness due to Orthostatic hypotension this is medication related could be due to finasteride on the back ground of multiple antihypertensive medications will monitor will decreased antihypertensives and diuretics. will try to continue the finastaride as this really helps with the pateint's incontinance and he wants to try and continue it. DARRIAN probably due to overdiuresis on the back ground of lisinopril There may also be obstructive uropathy adding to the issues as seen in renal US with BPH and high PVR. will hold HCTZ and lisinopril BPH and urge incontinence Renal US show bilateral bladder diverticulum and PVR of 467 cc continue oxybutinin and finasteride Bladder scan prn. 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 Hyperlipidemia continue statin DISCHARGE MEDICATIONS: Please see below. ALLERGIES: Please see below. PHYSICAL EXAMINATION ON DISCHARGE: VITAL SIGNS: Please see below. General Exam: Positive: Alert, Cooperative, No Acute Distress Eye Exam: Positive: PERRLA, Conjunctiva & lids normal, EOMI; Negative: Sclera icteric ENT Exam: Positive: Atraumatic, Mucous membr. moist/pink, Pharynx Normal Neck Exam: Positive: Supple; Negative: JVD, thyromegaly Chest Exam: Positive: Clear to auscultation, Normal air movement Heart Exam: Positive: Bradycardic, Regular Rhythm, Normal S1, Normal S2 Telemetry: Positive: Sinus, Bradycardia Abdomen Exam: Positive: Normal bowel sounds, Soft; Negative: Tenderness, Hepatospenomegaly Extremity Exam: Positive: Normal pulses; Negative: Clubbing, Cyanosis, Edema Neuro Exam: Positive: Normal Speech, Other (left facial droop and left upper extremity power less than right.) Psych Exam: Positive: Memory Intact, Oriented x 3 LABORATORY DATA: Please see below. ACTIVITY: [As tolerated]. DIET: As tolerated DISPOSITION: 01 Home, Self-Care. DISCHARGE INSTRUCTIONS: Follow up PMD in 1 week DISCHARGE CONDITION: [Stable]. TIME SPENT ON DISCHARGE: 35 minutes. Vital Signs/I&Os Vital Signs Date Time Temp Pulse Resp B/P (MAP) Pulse Ox O2 Delivery O2 Flow Rate FiO2 03/05/19 09:46 87 133/75 03/05/19 06:00 99.3 16 95 03/03/19 14:55 Room Air I&O- Last 24 Hours up to 6 AM 03/05/19 06:00 Intake Total 1080 ml Output Total 1320 ml Balance -240 ml Laboratory Data Labs 24H Laboratory Tests 2 03/05/19 06:23: Immature Granulocyte % (Auto) 0.4, White Blood Count 5.6, Red Blood Count 3.50L, Hemoglobin 11.0L, Hematocrit 32.3L, Mean Corpuscular Volume 92.3, Mean Corpuscular Hemoglobin 31.4, Mean Corpuscular Hemoglobin Concent 34.1, Red Cell Distribution Width 12.2, Platelet Count 103L, Neutrophils (%) (Auto) 59.0, Lymphocytes (%) (Auto) 27.9, Monocytes (%) (Auto) 9.3H, Eosinophils (%) (Auto) 2.9, Basophils (%) (Auto) 0.5, Neutrophils # (Auto) 3.3, Lymphocytes # (Auto) 1.6, Monocytes # (Auto) 0.5, Eosinophils # (Auto) 0.2, Basophils # (Auto) 0.0, Nucleated Red Blood Cells % (auto) 0.0, Anion Gap 7L, Glomerular Filtration Rate 58.1, Blood Urea Nitrogen 29H, Creatinine 1.29, Sodium Level 144, Potassium Level 3.8, Chloride Level 111H, Carbon Dioxide Level 26, Calcium Level 9.7 CBC/BMP Laboratory Tests 03/05/19 06:23 Red Blood Count 3.50 L, Mean Corpuscular Volume 92.3, Mean Corpuscular Hemoglobin 31.4, Mean Corpuscular Hemoglobin Concent 34.1, Red Cell Distribution Width 12.2, Neutrophils (%) (Auto) 59.0, Lymphocytes (%) (Auto) 27.9, Monocytes (%) (Auto) 9.3 H, Eosinophils (%) (Auto) 2.9, Basophils (%) (Auto) 0.5, Neutrophils # (Auto) 3.3, Lymphocytes # (Auto) 1.6, Monocytes # (Auto) 0.5, Eosinophils # (Auto) 0.2, Basophils # (Auto) 0.0, Calcium Level 9.7 Discharge Medications Scheduled Docusate Sodium (Colace) 100 Mg Capsule, 100 MG PO BID, (Reported) Finasteride (Finasteride) 5 Mg Tablet, 5 MG PO DAILY, (Reported) Fluoxetine Hcl (Fluoxetine HCl) 20 Mg Capsule, 20 MG PO DAILY, (Reported) PCP SAID TO DC THE FLUOXETINE ON SATURDAY Gabapentin (Gabapentin) 100 Mg Capsule, 100 MG PO TID, (Reported) Metoprolol Succinate (Metoprolol Succinate) 25 Mg Tab.er.24h, 25 MG PO DAILY Oxybutynin Chloride (Oxybutynin Chloride) 5 Mg Tablet, 2.5 MG PO BID, (Reported) Pantoprazole Sodium (Pantoprazole Sodium) 40 Mg Tablet.dr, 40 MG PO DAILY, (Reported) Simvastatin (Simvastatin) 20 Mg Tab, 20 TAB PO QHS, (Reported) Trazodone HCl (Trazodone HCl) 50 Mg Tablet, 50 MG PO QHS, (Reported) Scheduled PRN Acetaminophen (Acetaminophen) 325 Mg Tablet, 650 MG PO Q4H PRN for PAIN, (Reported) Hydralazine HCl (Hydralazine HCl) 25 Mg Tablet, 25 MG PO DAILY PRN for BP over 140, (Reported) Allergies Coded Allergies: codeine (Verified Adverse Reaction, Unknown, nausea, 11/01/18) AVANI COLEY MD Mar 05, 2019 14:42
== END 2019-03-05 12:50 | disposition home or self-care (01) | DRG 683 ==
LOC: M ED 14:54 → M ED INP 17:20 → M MSPAV 19:42
PROVIDERS: ADMIT Internal Medicine Nephrology; ATTEND Internal Medicine Nephrology
DX: N17.9 Acute kidney failure, unspecified (principal); I69.354 Hemiplegia and hemiparesis following cerebral infarction affecting left non-dominant side; I10 Essential (primary) hypertension; E78.5 Hyperlipidemia, unspecified; E78.00 Pure hypercholesterolemia, unspecified; R13.10 Dysphagia, unspecified; F01.50 Vascular dementia, unspecified severity, without behavioral disturbance, psychotic disturbance, mood disturbance, and anxiety; I69.392 Facial weakness following cerebral infarction; M48.02 Spinal stenosis, cervical region; N40.1 Benign prostatic hyperplasia with lower urinary tract symptoms; N39.41 Urge incontinence; I95.1 Orthostatic hypotension; Z79.899 Other long term (current) drug therapy; Z88.5 Allergy status to narcotic agent; Z87.442 Personal history of urinary calculi

== ENCOUNTER 2019-03-10 13:00 | Outpatient (RCR) | payer MEDICARE ==
[~2019-03-10 13:00] MED LIST changes: +FINA5TAB2 PO; +FLUO1TAB3 PO; +FLUO20CA8 PO; +HYDR-3910 PO; +LISI20TA18 PO; -LISI20TA19 PO; +METO1TAB32 PO; +OXYB5TAB10 PO; +PANT-23 PO; +SIMV20TA2 PO; -SIMV20TA22 PO; +TRAZ-252 PO
== END 2019-03-21 | disposition home or self-care (01) ==
LOC: M PT 13:00
PROVIDERS: ATTEND Nurse Practitioner Adult Health
DX: Z51.89 Encounter for other specified aftercare (principal); I61.9 Nontraumatic intracerebral hemorrhage, unspecified

== ENCOUNTER → 2019-03-12 | Outpatient (REF) | payer MEDICARE | LOC: M LAB REF 17:07 | PROVIDERS: ATTEND Nurse Practitioner Adult Health | DX: E83.52 Hypercalcemia (principal) ==

== ENCOUNTER → 2019-03-17 | Outpatient (REF) | payer MEDICARE ==
[2019-03-17 17:50] LABS: PERCENT SATURATION 39.6 % (19.7-50.0)
[2019-03-18 09:45] LABS: FOLATE 10.4 NG/ML
== END ==
LOC: M LAB REF 16:55
PROVIDERS: ATTEND Internal Medicine
DX: D64.9 Anemia, unspecified (principal)

== ENCOUNTER → 2019-04-28 | Outpatient (REF) | payer MEDICARE ==
[~2019-04-28] MED LIST changes: -LISI20TA18 PO; +LISI20TA19 PO
[2019-04-28 14:35] LABS: ALBUMIN 3.6 GM/DL (3.2-5.2); ALT/SGPT 25 U/L (12-78); BILIRUBIN,TOTAL 0.5 MG/DL (0.2-1.0); BLOOD UREA NITROGEN 24 MG/DL (7-18); CARBON DIOXIDE LEVEL 28 MEQ/L (21-32); CHLORIDE LEVEL 110 MEQ/L (98-107); CREATININE FOR GFR 1.11 MG/DL (0.70-1.30); FOLATE 18.2 NG/ML (>5.4); FREE T4 1.07 NG/DL (0.76-1.46); GLOMERULAR FILTRATION RATE > 60.0 (>42); GLUCOSE, FASTING 104 MG/DL (70-100); POTASSIUM SERUM 4.1 MEQ/L (3.5-5.1); RHEUMATOID FACTOR QUANT < 10.0 IU/ML (<15.0); SODIUM LEVEL 144 MEQ/L (136-145); TOTAL PROTEIN 6.9 GM/DL (6.4-8.2); VITAMIN B12 LEVEL 648 PG/ML (247-911)
[2019-04-28 14:37] LABS: BASO % 0.5 % (0.0-1.0); EOS # 0.2 10^3/uL (0.0-0.5); EOS % 2.6 % (0.0-3.0); HEMATOCRIT 44.1 % (42.0-52.0); HEMOGLOBIN 14.5 g/dl (13.5-17.5); LYMPH # 1.9 10^3/uL (1.5-5.0); LYMPH % 29.8 % (24.0-44.0); MEAN CORPUSCULAR HGB CONC 32.9 g/dl (32.0-36.5); MEAN CORPUSCULAR VOLUME 100.2 fl (80.0-96.0); MONO # 0.5 10^3/uL (0.0-0.8); MONO % 7.2 % (0.0-5.0); NEUTROPHILS # 3.9 10^3/uL (1.5-8.5); NEUTROPHILS % 59.4 % (36.0-66.0); PLATELET COUNT, AUTOMATED 141 10^3/uL (150-450); WHITE BLOOD COUNT 6.5 10^3/uL (4.0-10.0)
[2019-04-28 15:09] LABS: HEMOGLOBIN A1c 5.3 %
[2019-04-28 15:15] LABS: ERYTHROCYTE SEDIMENTATION RATE 9 mm/hr (0-20)
[2019-05-03 08:20] LABS: ANTINUCLEAR ANTIBODIES DIRECT Negative (Negative); VITAMIN B1 LEVEL WHOLE BLOOD 140.3 nmol/L (66.5-200.0); VITAMIN E(ALPHA TOCOPHEROL) 11.6 mg/L (9.0-29.0); VITAMIN E(GAMMA TOCOPHEROL) 0.8 mg/L (0.5-4.9)
== END ==
LOC: M LABNEURO 12:47
PROVIDERS: ATTEND Psychiatry & Neurology Neurology
DX: I63.9 Cerebral infarction, unspecified (principal); E07.9 Disorder of thyroid, unspecified; E11.9 Type 2 diabetes mellitus without complications; Z79.899 Other long term (current) drug therapy

== ENCOUNTER 2019-05-20 11:19 | Outpatient (RCR) | payer MEDICARE | END 2019-05-21 | LOC: M OT 11:19 | PROVIDERS: ATTEND Internal Medicine | DX: I69.354 Hemiplegia and hemiparesis following cerebral infarction affecting left non-dominant side (principal) ==

== ENCOUNTER 2019-06-15 10:07 | Outpatient (RCR) | payer MEDICARE ==
[~2019-06-15 10:07] MED LIST changes: -SIMV20TA2 PO; +SIMV20TA22 PO
[2019-06-16] MEDS ORDERED: REME15TA PO (14:00)
[2019-06-16] MEDS ORDERED: LISI20TA19 PO (14:00)
== END 2019-06-20 ==
LOC: M OT 10:07
PROVIDERS: ATTEND Internal Medicine
DX: Z47.89 Encounter for other orthopedic aftercare (principal)

== ENCOUNTER → 2019-06-25 | Outpatient (REF) | payer MEDICARE ==
[~2019-06-25] MED LIST changes: +REME15TA PO
[2019-06-25 13:50] LABS: APPEARANCE, URINE CLEAR (CLEAR); BACTERIA, URINE AUTO NEGATIVE (NEGATIVE); BILIRUBIN, URINE AUTO NEGATIVE (NEGATIVE); BLOOD, URINE BLOOD NEGATIVE (NEGATIVE); COLOR, URINE YELLOW (YELLOW); GLUCOSE, URINE (UA) AUTO NEGATIVE (NEGATIVE); KETONE, URINE AUTO NEGATIVE (NEGATIVE); LEUKOCYTE ESTERASE, URINE AUTO NEGATIVE (NEGATIVE); MUCUS, URINE SMALL (NEGATIVE); NITRITE, URINE AUTO NEGATIVE (NEGATIVE); PROTEIN, URINE AUTO NEGATIVE (NEGATIVE); RBC, URINE AUTO 2 /HPF (0-3); SQUAMOUS EPITHELIAL CELL UR AU 0 /HPF (0-6); UROBILINOGEN, URINE AUTO 0.2 mg/dL (0.0-2.0); WBC, URINE AUTO 1 /HPF (0-3)
== END ==
LOC: M LAB REF 12:46
PROVIDERS: ATTEND Internal Medicine
DX: Z01.810 Encounter for preprocedural cardiovascular examination (principal)

== ENCOUNTER → 2019-06-29 | Outpatient (CLI) | payer MEDICARE ==
[~2019-06-29] MED LIST changes: +FLUO20CA20 PO; -FLUO20CA8 PO
--- NOTE | 2019-06-29 13:10 | REP ---
Two-view chest: 06/29/2019. Indication: Preoperative assessment. Comparison: 03/03/2019. Findings: There is no focal airspace consolidation. There is no pleural effusion or pneumothorax. The cardiomediastinal silhouette is unremarkable. The lungs are hyperinflated. Impression: No acute cardiopulmonary process. Electronically Signed by Guero Akhtar DO 06/29/2019 01:01 P
== END ==
LOC: M WUC 12:30
PROVIDERS: ATTEND Urology
DX: Z01.818 Encounter for other preprocedural examination (principal); N40.1 Benign prostatic hyperplasia with lower urinary tract symptoms

== ENCOUNTER 2019-07-08 08:54 | Day surgery (SDC) | payer MEDICARE ==
[~2019-07-08] VITALS: Ht 180.3 cm; Wt 100.7 kg
[~2019-07-08 08:54] MED LIST changes: +LR 1,000 ML IV ONE; +ceFAZolin SOD 2 GM in IV 1 EA IV ONE
[2019-07-08] MEDS ORDERED: PROPOFOL 200 MG/20 ML VIAL As Ordered ONE (10:30)
[2019-07-08] MEDS ORDERED: ROCURONIUM BROMIDE 50 MG/5 ML VIAL As Ordered ONE (10:30)
[2019-07-08] MEDS ORDERED: METOCLOPRAMIDE INJ 10MG/2ML VIAL (J2765) As Ordered ONE (10:30)
[2019-07-08] MEDS ORDERED: ACETAMINOPHEN 1000MG 100ML IV BTL (OFIRMEV) (J0131 PER 10MG) As Ordered ONE (10:30)
[2019-07-08] MEDS ORDERED: ONDANSETRON 4MG/2ML VIAL (J2405) As Ordered ONE (10:30)
[2019-07-08] MEDS ORDERED: SUGAMMADEX SODIUM 500 MG/5 ML VIAL (BRIDION) As Ordered ONE (10:30)
[2019-07-08] MEDS ORDERED: fentaNYL 100 MCG/2 ML INJECTION (J3010) As Ordered ONE ×2 (10:30→10:48)
[2019-07-08] MEDS ORDERED: LIDOCAINE 2% INJ 100 MG/5 ML SDV (FOR ANES.) As Ordered ONE (10:30)
[2019-07-08] MEDS ORDERED: dexameTHASONE 4 MG/ML 1ML VIAL (J1100) As Ordered ONE (10:30)
[2019-07-08] MEDS ORDERED: MIDAZOLAM INJ 2 MG/2 ML VIAL (J2250) As Ordered ONE (10:30)
[2019-07-08] MEDS ORDERED: ePHEDrine SULFATE 25 MG/5 ML(5MG/ML) SYRINGE As Ordered ONE (10:42)
[2019-07-08] MEDS ORDERED: PHENYLephrine HCL 500 MCG/5 ML (100MCG/ML) SYRINGE (J2370) As Ordered ONE (10:42)
[2019-07-08] MEDS ORDERED: FUROSEMIDE 100 MG/10 ML VIAL (J1940) As Ordered ONE (11:39)
[2019-07-08] MEDS ORDERED: ONDANSETRON 4MG/2ML VIAL (J2405) IV PRN (12:30)
[2019-07-08] MEDS ORDERED: fentaNYL 100 MCG/2 ML INJECTION (J3010) IV PRN (12:30)
[2019-07-08] MEDS ORDERED: oxyCODONE 5MG TAB PO PRN (12:30)
[2019-07-08] MEDS ORDERED: LR 1,000 ML IV SCH (12:30)
[2019-07-08] MEDS ORDERED: ACETAMINOPHEN TAB 650MG DOSE (2X325MG) PO PRN (12:30)
[2019-07-08 13:50] VITALS: BP 174/81
--- NOTE | 2019-07-09 20:06 | RO ---
DATE OF PROCEDURE: 07/08/2019 PREPROCEDURE DIAGNOSIS: Benign prostatic hyperplasia. POSTPROCEDURE DIAGNOSIS: Benign prostatic hyperplasia. PROCEDURE: Cystoscopy, button transurethral Plasma vaporization of the prostate, urethral dilation. SURGEON: Chadd Friedman MD MARKET DEVELOPMENT ANALYST: None. ANESTHESIA: General. OPERATIVE INDICATIONS: This is a 73-year-old male with benign prostatic hyperplasia with incomplete bladder emptying. He was brought to the operating room today for the above listed procedure. DESCRIPTION OF PROCEDURE: The patient was brought to the operating room and general anesthesia was induced. Prophylactic antibiotics were infused. He was then placed in the dorsal lithotomy position and prepped and draped in the usual sterile fashion. At this point, I attempted to insert a resectoscope into the urethral meatus, but it would not go as the meatus was too narrow. I, therefore, dilated the urethral meatus to [place]izen [place] using metal sounds. Once that was done, I was able to advance a scope in. Once the scope was inside the urethra, I advanced it towards the bladder. Of note, the patient had trilobar benign prostatic hyperplasia with a prominent median lobe. I then used the PlasmaButton to vaporize hyperplastic tissue, first on the median lobe and then circumferentially at the bladder neck. I kept doing this and then I started vaporizing hyperplastic tissue on both lateral lobes. I kept doing this until there was a clear channel established. Throughout the procedure, I made sure not to vaporize close to the ureteral orifices or distal to the verumontanum. Once satisfied there was a clear channel, hemostasis was obtained using the coagulation current. Once satisfied with hemostasis, the resectoscope was removed and the 18-Citizen [place] Kidd catheter was inserted into the bladder. The balloon was filled with 15 mL of sterile water, and this marked the conclusion of the procedure. The catheter was connected to gravity drainage. The patient was then taken out of the dorsal lithotomy position, awakened from anesthesia and transported to the recovery room in stable condition. Estimated blood loss: 10 mL. Complications: None. Specimens: None. PLAN: The patient will followup in the clinic in approximately 1 week for catheter removal and a voiding trial. CRISTELA
== END 2019-07-08 14:08 | disposition home or self-care (01) ==
LOC: M SDC 08:54
PROVIDERS: ATTEND Urology
DX: N40.1 Benign prostatic hyperplasia with lower urinary tract symptoms (principal); N32.81 Overactive bladder; I49.9 Cardiac arrhythmia, unspecified; I10 Essential (primary) hypertension; E78.00 Pure hypercholesterolemia, unspecified; F03.90 Unspecified dementia, unspecified severity, without behavioral disturbance, psychotic disturbance, mood disturbance, and anxiety; M54.5 Low back pain; I69.998 Other sequelae following unspecified cerebrovascular disease; R51 Headache; D49.6 Neoplasm of unspecified behavior of brain; R06.83 Snoring; Z88.5 Allergy status to narcotic agent; Z79.899 Other long term (current) drug therapy
CPT/HCPCS: 52601; J0131; J0690; J1100; J1940; J2250; J2370; J2405; J2765; J3010

== ENCOUNTER → 2019-08-10 | Outpatient (REF) | payer MEDICARE ==
[~2019-08-10] MED LIST changes: -FLUO20CA19 PO; +FLUO20CA22 PO; -LR 1,000 ML IV ONE; -ceFAZolin SOD 2 GM in IV 1 EA IV ONE
[2019-08-10 13:45] LABS: APPEARANCE, URINE TURBID (CLEAR); BACTERIA, URINE AUTO 2+ (NEGATIVE); BILIRUBIN, URINE AUTO NEGATIVE (NEGATIVE); BLOOD, URINE BLOOD 3+ (NEGATIVE); COLOR, URINE YELLOW (YELLOW); GLUCOSE, URINE (UA) AUTO NEGATIVE (NEGATIVE); KETONE, URINE AUTO NEGATIVE (NEGATIVE); LEUKOCYTE ESTERASE, URINE AUTO 3+ (NEGATIVE); NITRITE, URINE AUTO POSITIVE (NEGATIVE); PROTEIN, URINE AUTO 2+ mg/dL (NEGATIVE); RBC, URINE AUTO TNTC /HPF (0-3); SPECIFIC GRAVITY URINE AUTO 1.015 (1.002-1.035); SQUAMOUS EPITHELIAL CELL UR AU 0 /HPF (0-6); UROBILINOGEN, URINE AUTO 0.2 mg/dL (0.0-2.0); WBC, URINE AUTO TNTC /HPF (0-3)
== END ==
LOC: M SMT 13:12
PROVIDERS: ATTEND Nurse Practitioner Women's Health
DX: N40.1 Benign prostatic hyperplasia with lower urinary tract symptoms (principal)

== ENCOUNTER → 2019-09-21 | Outpatient (REF) | payer MEDICARE ==
[2019-09-21 14:14] LABS: AMORPHOUS SEDIMENT SMALL (NEGATIVE); APPEARANCE, URINE CLOUDY (CLEAR); BACTERIA, URINE AUTO 2+ (NEGATIVE); BILIRUBIN, URINE AUTO NEGATIVE (NEGATIVE); BLOOD, URINE BLOOD 3+ (NEGATIVE); COLOR, URINE YELLOW (YELLOW); GLUCOSE, URINE (UA) AUTO NEGATIVE (NEGATIVE); KETONE, URINE AUTO NEGATIVE (NEGATIVE); LEUKOCYTE ESTERASE, URINE AUTO 3+ (NEGATIVE); MUCUS, URINE SMALL (NEGATIVE); NITRITE, URINE AUTO NEGATIVE (NEGATIVE); PROTEIN, URINE AUTO NEGATIVE (NEGATIVE); RBC, URINE AUTO 49 /HPF (0-3); SQUAMOUS EPITHELIAL CELL UR AU 0 /HPF (0-6); UROBILINOGEN, URINE AUTO 0.2 mg/dL (0.0-2.0); WBC, URINE AUTO TNTC /HPF (0-3)
== END ==
LOC: M SMT 13:05
PROVIDERS: ATTEND Nurse Practitioner Women's Health
DX: N40.1 Benign prostatic hyperplasia with lower urinary tract symptoms (principal)

== ENCOUNTER → 2020-05-25 | Outpatient (CLI) | payer MEDICARE ==
[~2020-05-25] MED LIST changes: -LISI20TA19 PO; +LISI20TA35 PO; +PANT40TA29 PO; -PANT40TA3 PO; +PROHANCE 279.3MG/ML 5ML VIAL As Ordered ONE
--- NOTE | 2020-05-25 19:58 | REPVR ---
PROCEDURE INFORMATION: Exam: MR Head Without and With Contrast Exam date and time: 05/25/2020 7:13 PM Age: 74 years old Clinical indication: Condition or disease; Brain tumor; Benign neoplasm of brain; Patient HX: Meningioma prior mri TECHNIQUE: Imaging protocol: MR of the head without and with intravenous contrast. Contrast material: PROHANCE; Contrast volume: 10 ml; Contrast route: INTRAVENOUS (IV); COMPARISON: MRI-Brain without Contrast 03/04/2019 4:35 PM FINDINGS: Age-related volume loss. Major vascular flow voids at the skull base are preserved. No extra-axial fluid collection.. Nonspecific white matter gliosis, probable chronic microvascular ischemia. Sequelae of prior hemorrhage at the right basal ganglia. No midline shift or intracranial mass effect. No diffusion restriction. Enhancing extra-axial mass at the left parietal convexity measuring 1.7 by 1.0 cm. Finding is stable from prior examination. Mild paranasal sinus disease. Minimal right mastoid effusion. IMPRESSION: 1. No acute intracranial abnormality. 2. Meningioma along the left parietal convexity measuring up to 1.7 cm, stable. Electronically signed by: Alvin Mccallum On 05/25/2020 19:57:51 PM
== END ==
LOC: M RAD 17:55
PROVIDERS: ATTEND Psychiatry & Neurology Neurology
DX: D32.9 Benign neoplasm of meninges, unspecified (principal)
CPT/HCPCS: 70553; A9576

== ENCOUNTER → 2021-08-01 | Outpatient (CLI) | payer MEDICARE ==
[~2021-08-01] MED LIST changes: +FLUO-96 PO; -FLUO20CA20 PO; +HYDR-3490 PO; -HYDR25TAB PO; -LISI-538 PO; +LISI20TA33 PO; +MIRT-62 PO; -PROHANCE 279.3MG/ML 5ML VIAL As Ordered ONE; -REME15TA PO
== END ==
LOC: M PLAIMG 10:24
PROVIDERS: ATTEND Psychiatry & Neurology Neurology
DX: I69.30 Unspecified sequelae of cerebral infarction (principal); D32.9 Benign neoplasm of meninges, unspecified

== ENCOUNTER → 2021-10-04 | Outpatient (REF) | payer MEDICARE | LOC: M LAB REF 16:15 | PROVIDERS: ATTEND Physician Assistant Medical | DX: R19.7 Diarrhea, unspecified (principal) ==

== ENCOUNTER → 2021-10-31 | Outpatient (REF) | payer MEDICARE | LOC: M LAB REF 11:22 | PROVIDERS: ATTEND Physician Assistant Medical | DX: R19.7 Diarrhea, unspecified (principal) ==

== ENCOUNTER 2022-02-26 17:45 | Observation (INO) | payer MEDICARE ==
[~2022-02-26] VITALS: Ht 180.3 cm; Wt 95.9 kg
[2022-02-26] MEDS ORDERED: hydrALAZINE 20MG/ML 1ML VIAL (J0360 PER 20MG) IV STA (20:07)
[2022-02-26] MEDS ORDERED: LOSARTAN 50MG TABLET PO ONE (20:10)
[2022-02-26] MEDS ORDERED: METOPROLOL SUCC *XL* 25MG TAB (TopROL *XL*) PO ONE (20:10)
[2022-02-26 20:49] LABS: HEMATOCRIT 45.8 % (42.0-52.0); HEMOGLOBIN 15.7 g/dl (13.5-17.5); LYMPH # 0.7 10^3/uL (1.5-5.0); MEAN CORPUSCULAR HEMOGLOBIN 32.7 pg (27.0-33.0); MEAN CORPUSCULAR HGB CONC 34.3 g/dl (32.0-36.5); MEAN CORPUSCULAR VOLUME 95.4 fl (80.0-96.0); MONO # 0.7 10^3/uL (0.0-0.8); MONO % 9.4 % (2.0-8.0); NEUTROPHILS # 5.6 10^3/uL (1.5-8.5)
[2022-02-26] MEDS: traZODone 50 MG TAB PO SCH (21:00)
[2022-02-26] MEDS: MIRTAZAPINE 15 MG TAB PO SCH (21:00)
[2022-02-26] MEDS ORDERED: SIMVASTATIN 20 MG TAB PO SCH (21:00)
[2022-02-26 21:12] LABS: ALBUMIN 3.3 GM/DL (3.2-5.2); ALT/SGPT 35 U/L (12-78); BILIRUBIN,TOTAL 0.6 MG/DL (0.2-1.0); BLOOD UREA NITROGEN 19 MG/DL (7-18); CALCIUM LEVEL 9.7 MG/DL (8.8-10.2); CARBON DIOXIDE LEVEL 26 MEQ/L (21-32); CHLORIDE LEVEL 109 MEQ/L (98-107); CK-MB VALUE MASS 3.3 NG/ML (<3.6); CREATININE FOR GFR 1.23 MG/DL (0.70-1.30); GLOMERULAR FILTRATION RATE > 60.0 (>42); GLUCOSE, FASTING 116 MG/DL (70-100); LIPASE 186 U/L (73-393); MB/CK RELATIVE INDEX 0.49 (< OR =4); POTASSIUM SERUM 3.8 MEQ/L (3.5-5.1); SODIUM LEVEL 141 MEQ/L (136-145); TOTAL PROTEIN 6.8 GM/DL (6.4-8.2)
[2022-02-26 21:15] LABS: PLATELET COUNT, AUTOMATED 100 10^3/uL (150-450)
[2022-02-26] MEDS ORDERED: NS 1,000 ML IV ONE (21:40)
[2022-02-27] VITALS (10 sets, daily range): BP systolic 153–190; BP diastolic 72–100; O2SAT 94–95
[2022-02-27] MEDS ORDERED: guaiFENesin ER 600 MG TAB PO PRN (01:00)
[2022-02-27] MEDS ORDERED: ACETAMINOPHEN TAB 650MG DOSE (2X325MG) PO PRN (01:00)
[2022-02-27] MEDS ORDERED: BENZONATATE 100MG CAPSULE PO PRN (01:00)
[2022-02-27 01:01] LABS: NT-PRO BNP 1164 PG/ML (<450)
[2022-02-27] MEDS ORDERED: METO1TAB32 PO (01:46)
[2022-02-27] MEDS ORDERED: MIRT-62 PO (01:46)
[2022-02-27] MEDS ORDERED: HOME MED LIST COMPLETE! XX SCH (01:50)
[2022-02-27 01:52] LABS: CK-MB VALUE MASS 3.6 NG/ML (<3.6); MB/CK RELATIVE INDEX 0.58 (< OR =4)
[2022-02-27] MEDS ORDERED: REMDESIVIR 200 MG in NS 250 ML IV ONE (05:00)
[2022-02-27] MEDS ORDERED: SODIUM CHLORIDE 0.9% INJ 10 ML SYR IV ONE (07:00)
[2022-02-27 07:42] LABS: CK-MB VALUE MASS 5.7 NG/ML (<3.6); MB/CK RELATIVE INDEX 0.61 (< OR =4)
[2022-02-27] MEDS: PANTOPRAZOLE 40MG TAB (PROTONIX) PO SCH (08:43)
[2022-02-27] MEDS: LACTOBACILLUS ACIDOPHILUS CAP (BACID) PO SCH (08:43)
[2022-02-27] MEDS: ENOXAPARIN 40MG/0.4ML SYRINGE (J1650 PER 10MG) SC SCH (08:43)
[2022-02-27] MEDS: METOPROLOL SUCC *XL* 25MG TAB (TopROL *XL*) PO SCH (08:44)
[2022-02-27] MEDS: cefTRIAXone SOD 1 GM in D5W MINI-BAG PLUS 50 ML IV SCH (08:52)
[2022-02-27] MEDS: NS 1,000 ML IV SCH ×3 (08:52→21:46)
[2022-02-27] MEDS ORDERED: amLODIPine 5 MG TAB PO SCH (13:00)
[2022-02-27] MEDS ORDERED: amLODIPine 5 MG TAB PO ONE (18:15)
[2022-02-27] MEDS ORDERED: **hydrALAZINE** 10 MG TAB PO PRN (18:15)
[2022-02-27] MEDS: traZODone 50 MG TAB PO SCH (21:00)
[2022-02-27] MEDS: MIRTAZAPINE 15 MG TAB PO SCH (21:00)
[2022-02-28] MEDS: cefTRIAXone SOD 1 GM in D5W MINI-BAG PLUS 50 ML IV SCH (02:30)
[2022-02-28] MEDS: REMDESIVIR 100 MG in NS 250 ML IV SCH (03:57)
[2022-02-28 04:04] VITALS: BP 133/60
[2022-02-28] MEDS: NS 1,000 ML IV SCH ×2 (05:45→13:08)
[2022-02-28] MEDS: SODIUM CHLORIDE 0.9% INJ 10 ML SYR IV SCH (05:45)
[2022-02-28] MEDS: LACTOBACILLUS ACIDOPHILUS CAP (BACID) PO SCH (09:05)
[2022-02-28] MEDS: PANTOPRAZOLE 40MG TAB (PROTONIX) PO SCH (09:05)
[2022-02-28] MEDS: METOPROLOL SUCC *XL* 25MG TAB (TopROL *XL*) PO SCH (09:07)
[2022-02-28] MEDS: ENOXAPARIN 40MG/0.4ML SYRINGE (J1650 PER 10MG) SC SCH (09:08)
[2022-02-28 09:12] LABS: HEMATOCRIT 42.8 % (42.0-52.0); HEMOGLOBIN 14.8 g/dl (13.5-17.5); MEAN CORPUSCULAR HEMOGLOBIN 32.6 pg (27.0-33.0); MEAN CORPUSCULAR HGB CONC 34.6 g/dl (32.0-36.5); MEAN CORPUSCULAR VOLUME 94.3 fl (80.0-96.0); PLATELET COUNT, AUTOMATED 101 10^3/uL (150-450); RED BLOOD COUNT 4.54 10^6/uL (4.30-6.10); WHITE BLOOD COUNT 4.9 10^3/uL (4.0-10.0)
[2022-02-28 09:39] LABS: ALBUMIN 2.9 GM/DL (3.2-5.2); ALT/SGPT 34 U/L (12-78); BILIRUBIN,TOTAL 0.4 MG/DL (0.2-1.0); BLOOD UREA NITROGEN 16 MG/DL (7-18); CALCIUM LEVEL 9.2 MG/DL (8.8-10.2); CARBON DIOXIDE LEVEL 26 MEQ/L (21-32); CHLORIDE LEVEL 111 MEQ/L (98-107); CREATININE FOR GFR 0.95 MG/DL (0.70-1.30); GLOMERULAR FILTRATION RATE > 60.0 (>42); GLUCOSE, FASTING 98 MG/DL (70-100); MAGNESIUM LEVEL 1.8 MG/DL (1.8-2.4); SODIUM LEVEL 143 MEQ/L (136-145); TOTAL PROTEIN 5.9 GM/DL (6.4-8.2)
[2022-02-28 09:49] LABS: BASO % 0.6 % (0.0-1.0); EOS % 0.2 % (0.0-3.0); LYMPH # 1.2 10^3/uL (1.5-5.0); LYMPH % 24.9 % (24.0-44.0); MONO # 0.4 10^3/uL (0.0-0.8); MONO % 8.3 % (2.0-8.0); NEUTROPHILS # 3.2 10^3/uL (1.5-8.5); NEUTROPHILS % 65.8 % (36.0-66.0)
[2022-02-28 09:51] LABS: PLATELET ESTIMATE NORMAL (NORMAL)
[2022-02-28 09:56] LABS: BILIRUBIN,DIRECT 0.2 MG/DL (0.0-0.2)
[2022-02-28 12:00] VITALS: BP 135/67
[2022-02-28 19:18] VITALS: BP 158/72
[2022-02-28] MEDS: traZODone 50 MG TAB PO SCH (21:10)
[2022-02-28] MEDS: MIRTAZAPINE 15 MG TAB PO SCH (21:10)
[2022-03-01] MEDS: cefTRIAXone SOD 1 GM in D5W MINI-BAG PLUS 50 ML IV SCH (03:34)
[2022-03-01 03:41] VITALS: BP 162/86
[2022-03-01] MEDS: REMDESIVIR 100 MG in NS 250 ML IV SCH (04:42)
[2022-03-01] MEDS: SODIUM CHLORIDE 0.9% INJ 10 ML SYR IV SCH (04:43)
[2022-03-01] MEDS: PANTOPRAZOLE 40MG TAB (PROTONIX) PO SCH (08:13)
[2022-03-01] MEDS: LACTOBACILLUS ACIDOPHILUS CAP (BACID) PO SCH (08:13)
[2022-03-01] MEDS: METOPROLOL SUCC *XL* 25MG TAB (TopROL *XL*) PO SCH (08:14)
[2022-03-01] MEDS: ENOXAPARIN 40MG/0.4ML SYRINGE (J1650 PER 10MG) SC SCH (08:14)
[2022-03-01 08:40] LABS: BASO % 0.3 % (0.0-1.0); EOS # 0.1 10^3/uL (0.0-0.5); EOS % 2.1 % (0.0-3.0); HEMATOCRIT 41.5 % (42.0-52.0); HEMOGLOBIN 14.5 g/dl (13.5-17.5); LYMPH % 30.3 % (24.0-44.0); MEAN CORPUSCULAR HEMOGLOBIN 32.9 pg (27.0-33.0); MEAN CORPUSCULAR HGB CONC 34.9 g/dl (32.0-36.5); MEAN CORPUSCULAR VOLUME 94.1 fl (80.0-96.0); MONO # 0.4 10^3/uL (0.0-0.8); MONO % 11.6 % (2.0-8.0); NEUTROPHILS # 1.9 10^3/uL (1.5-8.5); NEUTROPHILS % 55.4 % (36.0-66.0); PLATELET COUNT, AUTOMATED 93 10^3/uL (150-450); RED BLOOD COUNT 4.41 10^6/uL (4.30-6.10); WHITE BLOOD COUNT 3.4 10^3/uL (4.0-10.0)
[2022-03-01 09:14] LABS: INR 1.17; PROTHROMBIN TIME 15.3 SECONDS (12.7-14.5)
[2022-03-01 09:15] LABS: PARTIAL THROMBOPLASTIN TIME 36.2 SECONDS (25.9-37.0)
[2022-03-01 09:23] LABS: ALBUMIN 2.6 GM/DL (3.2-5.2); ALT/SGPT 36 U/L (12-78); BILIRUBIN,DIRECT 0.2 MG/DL (0.0-0.2); BILIRUBIN,TOTAL 0.4 MG/DL (0.2-1.0); BLOOD UREA NITROGEN 14 MG/DL (7-18); CALCIUM LEVEL 8.6 MG/DL (8.8-10.2); CARBON DIOXIDE LEVEL 26 MEQ/L (21-32); CHLORIDE LEVEL 112 MEQ/L (98-107); CREATININE FOR GFR 0.87 MG/DL (0.70-1.30); FERRITIN 373 NG/ML (26-388); GLOMERULAR FILTRATION RATE > 60.0 (>42); GLUCOSE, FASTING 94 MG/DL (70-100); LDH LACTATE DEHYDROGENASE 177 U/L (87-241); MAGNESIUM LEVEL 1.8 MG/DL (1.8-2.4); NT-PRO BNP 403 PG/ML (<450); POTASSIUM SERUM 3.6 MEQ/L (3.5-5.1); SODIUM LEVEL 142 MEQ/L (136-145); TOTAL PROTEIN 5.5 GM/DL (6.4-8.2)
[2022-03-01 11:47] VITALS: BP 148/71
[2022-03-01 20:00] VITALS: BP 146/70
[2022-03-01] MEDS: traZODone 50 MG TAB PO SCH (20:34)
[2022-03-01] MEDS: MIRTAZAPINE 15 MG TAB PO SCH (20:34)
[2022-03-02] MEDS: cefTRIAXone SOD 1 GM in D5W MINI-BAG PLUS 50 ML IV SCH (04:13)
[2022-03-02 04:14] VITALS: BP 138/76
[2022-03-02 06:35] LABS: BASO % 0.6 % (0.0-1.0); EOS # 0.2 10^3/uL (0.0-0.5); EOS % 4.3 % (0.0-3.0); HEMATOCRIT 40.1 % (42.0-52.0); LYMPH # 1.4 10^3/uL (1.5-5.0); LYMPH % 40.1 % (24.0-44.0); MEAN CORPUSCULAR HEMOGLOBIN 32.4 pg (27.0-33.0); MEAN CORPUSCULAR HGB CONC 34.9 g/dl (32.0-36.5); MEAN CORPUSCULAR VOLUME 92.8 fl (80.0-96.0); MONO # 0.4 10^3/uL (0.0-0.8); MONO % 10.2 % (2.0-8.0); NEUTROPHILS # 1.6 10^3/uL (1.5-8.5); NEUTROPHILS % 44.5 % (36.0-66.0); RED BLOOD COUNT 4.32 10^6/uL (4.30-6.10); WHITE BLOOD COUNT 3.5 10^3/uL (4.0-10.0)
[2022-03-02 06:38] LABS: PLATELET COUNT, AUTOMATED 99 10^3/uL (150-450)
[2022-03-02 07:11] LABS: ALBUMIN 2.5 GM/DL (3.2-5.2); ALT/SGPT 47 U/L (12-78); BILIRUBIN,TOTAL 0.5 MG/DL (0.2-1.0); BLOOD UREA NITROGEN 16 MG/DL (7-18); CALCIUM LEVEL 8.9 MG/DL (8.8-10.2); CARBON DIOXIDE LEVEL 25 MEQ/L (21-32); CHLORIDE LEVEL 113 MEQ/L (98-107); CREATININE FOR GFR 0.91 MG/DL (0.70-1.30); GLOMERULAR FILTRATION RATE > 60.0 (>42); GLUCOSE, FASTING 94 MG/DL (70-100); MAGNESIUM LEVEL 1.9 MG/DL (1.8-2.4); POTASSIUM SERUM 3.5 MEQ/L (3.5-5.1); SODIUM LEVEL 143 MEQ/L (136-145); TOTAL PROTEIN 5.3 GM/DL (6.4-8.2)
[2022-03-02] MEDS: LACTOBACILLUS ACIDOPHILUS CAP (BACID) PO SCH (08:41)
[2022-03-02 08:42] VITALS: BP 124/65
[2022-03-02] MEDS: METOPROLOL SUCC *XL* 25MG TAB (TopROL *XL*) PO SCH (08:42)
[2022-03-02] MEDS: ENOXAPARIN 40MG/0.4ML SYRINGE (J1650 PER 10MG) SC SCH (09:00)
[2022-03-02] MEDS ORDERED: FAMOTIDINE 20 MG TAB PO PRN (09:10)
[2022-03-02 12:00] VITALS: BP 135/78
[2022-03-02] MEDS ORDERED: FAMO20TA PO (13:32)
[2022-03-02] MEDS ORDERED: AMLO1TAB25 PO (13:32)
[2022-03-02] MEDS ORDERED: RAMELTEON 8 MG TAB (ROZEREM) PO SCH (21:00)
== END 2022-03-02 17:50 | disposition home health service (06) ==
LOC: M ED 17:45 → M ED INP 17:46 → UNDOADMOB 02-27 00:56 → M ED INP 02-27 00:56 → ENRESERV 02-27 03:05 → M PCU 02-27 04:45 → M ED INP 02-27 04:45 → M 4MAIN 02-27 17:48 → M PCU 02-27 17:48 → UNDODISOB 03-02 17:50
PROVIDERS: ADMIT Internal Medicine; ATTEND Internal Medicine
DX: S00.91XA Abrasion of unspecified part of head, initial encounter (principal); Y92.018 Other place in single-family (private) house as the place of occurrence of the external cause; W19.XXXA Unspecified fall, initial encounter; U07.1 COVID-19; R53.1 Weakness; M62.82 Rhabdomyolysis; I10 Essential (primary) hypertension; E78.5 Hyperlipidemia, unspecified; N40.0 Benign prostatic hyperplasia without lower urinary tract symptoms; R53.81 Other malaise; G93.40 Encephalopathy, unspecified; M48.02 Spinal stenosis, cervical region; Z86.73 Personal history of transient ischemic attack (TIA), and cerebral infarction without residual deficits; Z79.899 Other long term (current) drug therapy; Z88.5 Allergy status to narcotic agent; N39.0 Urinary tract infection, site not specified; R79.89 Other specified abnormal findings of blood chemistry
CPT/HCPCS: 36415; 70450; 70486; 71045; 72125; 80048; 80053; 80076; 81001; 82248; 82550; 82553; 82728; 83605; 83615; 83690; 83735; 83880; 84145; 84484; 85025; 85027; 85049; 85055; 85384; 85610; 85730; 87040; 87086; 87486; 87581; 87633; 87798; 93005; 96365; 96366; 96367; 96375; 97116; 97161; 97165; 97530; 97535; 99284; G0378; J0248; J0360; J0696; J1650

== ENCOUNTER → 2022-08-12 | Outpatient (CLI) | payer MEDICARE ==
[~2022-08-12] MED LIST changes: +AMLO1TAB25 PO; +FAMO20TA PO
== END ==
LOC: M LABSMTC 11:24
PROVIDERS: ATTEND Anesthesiology
DX: Z01.812 Encounter for preprocedural laboratory examination (principal); Z20.822 Contact with and (suspected) exposure to COVID-19

== ENCOUNTER 2022-08-16 08:22 | Day surgery (SDC) | payer MEDICARE ==
[~2022-08-16] VITALS: Ht 180.3 cm; Wt 92.0 kg
[~2022-08-16 08:22] MED LIST changes: +NS 1,000 ML IV ONE
[2022-08-16] MEDS ORDERED: propofoL 200 MG/20 ML VIAL As Ordered ONE ×2 (08:49→09:17)
[2022-08-16] MEDS ORDERED: LIDOCAINE 2% 100MG/5ML SDV (FOR ANES.) As Ordered ONE (08:49)
[2022-08-16 10:02] VITALS: BP 169/75
== END 2022-08-16 10:04 | disposition home or self-care (01) ==
LOC: M OPP 08:22
PROVIDERS: ATTEND Surgery
DX: D12.6 Benign neoplasm of colon, unspecified (principal); K64.2 Third degree hemorrhoids; Q43.8 Other specified congenital malformations of intestine; R93.3 Abnormal findings on diagnostic imaging of other parts of digestive tract; Z80.0 Family history of malignant neoplasm of digestive organs; Z79.02 Long term (current) use of antithrombotics/antiplatelets; Z79.899 Other long term (current) drug therapy; Z88.5 Allergy status to narcotic agent; I10 Essential (primary) hypertension; E78.00 Pure hypercholesterolemia, unspecified; Z86.73 Personal history of transient ischemic attack (TIA), and cerebral infarction without residual deficits

== ENCOUNTER → 2023-01-10 | Outpatient (REF) | payer MEDICARE ==
[~2023-01-10] MED LIST changes: -NS 1,000 ML IV ONE
[2023-01-10 13:34] LABS: VITAMIN B12 LEVEL 469 PG/ML (211-911)
[2023-01-10 13:36] LABS: FOLATE > 24.0 NG/ML (>5.4)
== END ==
LOC: M LAB REF 12:24
PROVIDERS: ATTEND Physician Assistant Medical
DX: R41.3 Other amnesia (principal)

== ENCOUNTER → 2023-11-04 | Outpatient (REF) | payer MEDICARE ==
[~2023-11-04] MED LIST changes: -HYDR-3910 PO; -HYDR25TA PO; +HYDR25TA87 PO; +HYDR25TA88 PO; -MIRT-62 PO; +MIRT-88 PO; -OXYB5TAB10 PO; +OXYB5TAB14 PO
[2023-11-04 18:46] LABS: FOLATE 11.9 NG/ML (>5.4)
== END ==
LOC: M LAB REF 16:53
PROVIDERS: ATTEND Physician Assistant Medical
DX: R41.3 Other amnesia (principal)

== ENCOUNTER 2024-06-30 21:19 | Emergency (ER) | payer MEDICARE ==
[~2024-06-30 21:19] MED LIST changes: +FLUO-365 PO; -FLUO20CA22 PO
[2024-07-01 00:30] VITALS: BP 144/76; TEMP 97.9; O2SAT 95
== END 2024-07-01 01:10 | disposition home or self-care (01) ==
LOC: EDBD 21:19 → M ED 21:19
DX: S00.03XA Contusion of scalp, initial encounter (principal); S80.01XA Contusion of right knee, initial encounter; Y92.019 Unspecified place in single-family (private) house as the place of occurrence of the external cause; Y93.9 Activity, unspecified; Y99.9 Unspecified external cause status; W01.0XXA Fall on same level from slipping, tripping and stumbling without subsequent striking against object, initial encounter; I10 Essential (primary) hypertension; E78.5 Hyperlipidemia, unspecified; G47.00 Insomnia, unspecified; F17.210 Nicotine dependence, cigarettes, uncomplicated; Z88.5 Allergy status to narcotic agent; Z79.899 Other long term (current) drug therapy

== ENCOUNTER 2024-08-19 19:59 | Inpatient (IN) | payer MEDICARE ==
[~2024-08-19] VITALS: Ht 180.3 cm; Wt 97.8 kg
[2024-08-19 20:43] LABS: VENOUS HCO3 24.5 MMOL/L (23.0-27.0); VENOUS O2 SATURATION 49.1 % (60.0-80.0); VENOUS PARTIAL PRESSURE CO2 43.7 mmHg (38.0-50.0); VENOUS PARTIAL PRESSURE O2 25.7 mmHg (30.0-50.0); VENOUS PH 7.367 UNITS (7.330-7.430); VENOUS STANDARD HCO3 22.3 MMOL/L; VENOUS TOTAL CO2 25.9 MMOL/L (24.0-28.0)
[2024-08-19 21:16] LABS: CK-MB VALUE MASS 6.1 NG/ML (<3.6)
[2024-08-19 21:17] LABS: ETHYL ALCOHOL (ETHANOL) < 0.003 % (0.000-0.010)
[2024-08-19 21:18] LABS: ALBUMIN 3.6 G/DL (3.2-5.2); ALKALINE PHOSPHATASE 84 U/L (40-129); ALT/SGPT 20 U/L (7.0-40); AST/SGOT 47 U/L (<34); BILIRUBIN,TOTAL 2.9 MG/DL (0.3-1.2); BLOOD UREA NITROGEN 29 MG/DL (9-23); CALCIUM LEVEL 10.6 MG/DL (8.3-10.6); CARBON DIOXIDE LEVEL 26 MMOL/L (20-31); CHLORIDE LEVEL 109 MMOL/L (98-107); CPK CREATINE PHOSPHOKINASE 1049 U/L (46-171); CREATININE FOR GFR 1.19 MG/DL (0.70-1.30); GLOMERULAR FILTRATION RATE > 60.0 (>42); GLUCOSE, FASTING 119 MG/DL (74-106); MB/CK RELATIVE INDEX 0.58 (< OR =4); POTASSIUM SERUM 3.9 MMOL/L (3.5-5.1); SODIUM LEVEL 143 MMOL/L (136-145); TOTAL PROTEIN 7.2 G/DL (5.7-8.2)
[2024-08-19 21:21] LABS: THYROID STIMULATING HORMONE 0.632 uIU/ML (0.55-4.78)
[2024-08-19 21:28] LABS: BASO % 0.2 % (0.0-1.0); EOS % 0.1 % (0.0-3.0); HEMOGLOBIN 15.5 g/dl (13.5-17.5); LYMPH # 0.9 10^3/uL (1.5-5.0); LYMPH % 8.3 % (24.0-44.0); MEAN CORPUSCULAR HEMOGLOBIN 32.9 pg (27.0-33.0); MEAN CORPUSCULAR HGB CONC 35.2 g/dl (32.0-36.5); MEAN CORPUSCULAR VOLUME 93.4 fl (80.0-96.0); MONO % 9.2 % (2.0-8.0); NEUTROPHILS # 8.9 10^3/uL (1.5-8.5); NEUTROPHILS % 81.6 % (36.0-66.0); PLATELET COUNT, AUTOMATED 107 10^3/uL (150-450); RED BLOOD COUNT 4.71 10^6/uL (4.30-6.10); WHITE BLOOD COUNT 10.9 10^3/uL (4.0-10.0)
[2024-08-19 22:07] LABS: INR 1.1; PARTIAL THROMBOPLASTIN TIME 29.8 SECONDS (24.8-34.2); PROTHROMBIN TIME 14.5 SECONDS (12.5-14.5)
[2024-08-19] MEDS: NS (Normal Saline) 0.9% 1,000 ML IV ONE (23:31)
[2024-08-20] MEDS ORDERED: DOCU100C16 PO (00:08)
[2024-08-20] MEDS ORDERED: MIRT-10 PO (00:08)
[2024-08-20] MEDS ORDERED: LOSA50TA28 PO (00:08)
[2024-08-20 00:10] LABS: CK-MB VALUE MASS 4.7 NG/ML (<3.6)
[2024-08-20] MEDS ORDERED: HOME MED LIST COMPLETE! XX SCH (00:10)
[2024-08-20 00:11] LABS: MB/CK RELATIVE INDEX 0.57 (< OR =4)
[2024-08-20] MEDS ORDERED: ACETAMINOPHEN 325 MG TAB PO PRN (00:40)
[2024-08-20 03:27] LABS: PROCALCITONIN 0.14 ng/ml
[2024-08-20] MEDS: cefTRIAXone SOD 1 GM in DEXTROSE 5% (D5W) ADV/MINI-BAG 50 ML IV SCH (03:35)
[2024-08-20] MEDS: DOXYCYCLINE HYCLATE 100MG TABLET PO SCH (03:35)
[2024-08-20 03:37] LABS: KETONE, URINE AUTO RFX TRACE mg/dL (NEGATIVE); LEUKOCYTE ESTERASE UR AUTO RFX NEGATIVE (NEGATIVE); MUCUS, URINE RFX SMALL (NEGATIVE); NITRITE, URINE AUTO RFX NEGATIVE (NEGATIVE); RBC, URINE AUTO RFX 1 /HPF (0-3); SQUAM EPITHELIAL CELL UR AURFX 0 /HPF (0-6); WBC, URINE AUTO RFX 5 /HPF (0-3)
[2024-08-20 04:00] LABS: AMPHETAMINES LEVEL URINE NEGATIVE (NEGATIVE); BARBITURATES URINE NEGATIVE (NEGATIVE); BENZODIAZEPINES URINE NEGATIVE (NEGATIVE); CANNABINOIDS URINE NEGATIVE (NEGATIVE); COCAINE METABOLITE URINE NEGATIVE (NEGATIVE); METHADONE URINE NEGATIVE (NEGATIVE); OPIATES URINE NEGATIVE (NEGATIVE); PHENCYCLIDINE URINE NEGATIVE (NEGATIVE)
[2024-08-20] MEDS: ENOXAPARIN 40MG/0.4ML SYRINGE (J1650 PER 10MG) SC SCH (09:16)
[2024-08-20] MEDS: LOSARTAN 50MG TABLET PO SCH (09:17)
[2024-08-20 10:47] VITALS: BP 155/67; TEMP 99.3; O2SAT 98
[2024-08-20 11:50] VITALS: BP 134/66; TEMP 98.1; O2SAT 94
[2024-08-20 16:00] VITALS: BP 145/63; TEMP 99.5; O2SAT 95
[2024-08-20 20:44] VITALS: BP 148/86; TEMP 97.6; O2SAT 95
[2024-08-20] MEDS: METOPROLOL SUCC *XL* 25MG TAB (TopROL *XL*) PO SCH (20:47)
[2024-08-20] MEDS: traZODone 50 MG TAB PO SCH (20:47)
[2024-08-20] MEDS: MIRTAZAPINE 15 MG TAB PO SCH (20:47)
[2024-08-20] MEDS: SIMVASTATIN 20 MG TAB PO SCH (20:47)
[2024-08-20 23:40] VITALS: BP 148/71; TEMP 97.3; O2SAT 95
[2024-08-21 04:18] VITALS: BP 142/72; TEMP 98.3; O2SAT 95
[2024-08-21 05:15] LABS: BASO % 0.6 % (0.0-1.0); EOS # 0.3 10^3/uL (0.0-0.5); EOS % 4.4 % (0.0-3.0); HEMATOCRIT 40.5 % (42.0-52.0); HEMOGLOBIN 13.7 g/dl (13.5-17.5); LYMPH # 1.6 10^3/uL (1.5-5.0); LYMPH % 23.4 % (24.0-44.0); MEAN CORPUSCULAR HEMOGLOBIN 32.1 pg (27.0-33.0); MEAN CORPUSCULAR HGB CONC 33.8 g/dl (32.0-36.5); MEAN CORPUSCULAR VOLUME 94.8 fl (80.0-96.0); MONO # 0.7 10^3/uL (0.0-0.8); MONO % 9.3 % (2.0-8.0); NEUTROPHILS # 4.3 10^3/uL (1.5-8.5); NEUTROPHILS % 61.9 % (36.0-66.0); PLATELET COUNT, AUTOMATED 102 10^3/uL (150-450); RED BLOOD COUNT 4.27 10^6/uL (4.30-6.10)
[2024-08-21 05:37] LABS: CPK CREATINE PHOSPHOKINASE 302 U/L (46-171)
[2024-08-21 05:40] LABS: ALBUMIN 2.7 G/DL (3.2-5.2); ALKALINE PHOSPHATASE 61 U/L (40-129); ALT/SGPT 15 U/L (7.0-40); AST/SGOT 32 U/L (<34); BILIRUBIN,TOTAL 1.1 MG/DL (0.3-1.2); BLOOD UREA NITROGEN 26 MG/DL (9-23); CALCIUM LEVEL 9.1 MG/DL (8.3-10.6); CARBON DIOXIDE LEVEL 25 MMOL/L (20-31); CHLORIDE LEVEL 113 MMOL/L (98-107); CREATININE FOR GFR 1.11 MG/DL (0.70-1.30); GLOMERULAR FILTRATION RATE > 60.0 (>42); GLUCOSE, FASTING 98 MG/DL (74-106); POTASSIUM SERUM 3.8 MMOL/L (3.5-5.1); SODIUM LEVEL 145 MMOL/L (136-145); TOTAL PROTEIN 5.4 G/DL (5.7-8.2)
[2024-08-21 07:38] VITALS: BP 129/60; TEMP 99.4; O2SAT 94
[2024-08-21 12:01] VITALS: BP 130/62; TEMP 98; O2SAT 97
[2024-08-21 16:24] VITALS: BP 136/72; TEMP 98.2; O2SAT 98
[2024-08-21 17:05] VITALS: BP 136/81; TEMP 97.5; O2SAT 98
[2024-08-21 20:00] VITALS: BP 128/77; TEMP 97.7; O2SAT 96
[2024-08-22 04:53] VITALS: BP 155/78; TEMP 97.3; O2SAT 96
[2024-08-22 11:45] VITALS: BP 131/62; TEMP 97.7; O2SAT 97
[2024-08-22 15:09] LABS: BASO % 0.5 % (0.0-1.0); EOS # 0.3 10^3/uL (0.0-0.5); HEMATOCRIT 40.6 % (42.0-52.0); LYMPH # 1.3 10^3/uL (1.5-5.0); LYMPH % 23.1 % (24.0-44.0); MEAN CORPUSCULAR HEMOGLOBIN 32.4 pg (27.0-33.0); MEAN CORPUSCULAR HGB CONC 34.5 g/dl (32.0-36.5); MONO # 0.5 10^3/uL (0.0-0.8); MONO % 9.5 % (2.0-8.0); NEUTROPHILS # 3.4 10^3/uL (1.5-8.5); NEUTROPHILS % 61.5 % (36.0-66.0); PLATELET COUNT, AUTOMATED 108 10^3/uL (150-450); RED BLOOD COUNT 4.32 10^6/uL (4.30-6.10); WHITE BLOOD COUNT 5.6 10^3/uL (4.0-10.0)
[2024-08-22 15:35] LABS: ALBUMIN 2.7 G/DL (3.2-5.2); ALKALINE PHOSPHATASE 67 U/L (40-129); ALT/SGPT 19 U/L (7.0-40); AST/SGOT 25 U/L (<34); BILIRUBIN,TOTAL 0.7 MG/DL (0.3-1.2); BLOOD UREA NITROGEN 23 MG/DL (9-23); CALCIUM LEVEL 9.3 MG/DL (8.3-10.6); CARBON DIOXIDE LEVEL 26 MMOL/L (20-31); CHLORIDE LEVEL 113 MMOL/L (98-107); CREATININE FOR GFR 1.05 MG/DL (0.70-1.30); GLOMERULAR FILTRATION RATE > 60.0 (>42); GLUCOSE, FASTING 111 MG/DL (74-106); POTASSIUM SERUM 4.3 MMOL/L (3.5-5.1); SODIUM LEVEL 146 MMOL/L (136-145); TOTAL PROTEIN 5.6 G/DL (5.7-8.2)
[2024-08-22 15:44] LABS: CPK CREATINE PHOSPHOKINASE 116 U/L (46-171)
[2024-08-22 18:45] VITALS: BP 159/70; TEMP 97.7; O2SAT 98
[2024-08-23 04:27] VITALS: BP 167/91; TEMP 97.7; O2SAT 98
[2024-08-23 12:00] VITALS: BP 143/78; TEMP 97.7; O2SAT 99
[2024-08-23 20:34] VITALS: BP 151/77; TEMP 98.1; O2SAT 97
[2024-08-24 04:37] VITALS: BP 123/69; TEMP 97.7; O2SAT 95
[2024-08-24 12:00] VITALS: BP 144/69; TEMP 97.7; O2SAT 96
[2024-08-24 19:31] LABS: URINE STREP PNEUMONIAE ANTIGEN NOT DETECTED (NOT DETECT)
[2024-08-24 19:33] VITALS: BP 172/83; TEMP 98.2; O2SAT 97
[2024-08-25 04:26] VITALS: BP 152/75; TEMP 97.6; O2SAT 94
[2024-08-25 16:29] LABS: BLOOD UREA NITROGEN 25 MG/DL (9-23); CALCIUM LEVEL 9.8 MG/DL (8.3-10.6); CARBON DIOXIDE LEVEL 24 MMOL/L (20-31); CHLORIDE LEVEL 111 MMOL/L (98-107); CREATININE FOR GFR 1.05 MG/DL (0.70-1.30); GLOMERULAR FILTRATION RATE > 60.0 (>42); GLUCOSE, FASTING 107 MG/DL (74-106); POTASSIUM SERUM 4.4 MMOL/L (3.5-5.1); SODIUM LEVEL 143 MMOL/L (136-145)
[2024-08-25 20:28] VITALS: BP 156/76
== END 2024-08-25 20:56 | disposition home or self-care (01) | DRG 70 ==
LOC: M ED 19:59 → M ED INP 08-20 00:26 → M PCU 08-20 10:37 → M MSPAV 08-21 17:02
PROVIDERS: ADMIT Family Medicine; ATTEND General Practice
DX: G93.41 Metabolic encephalopathy (principal); J18.9 Pneumonia, unspecified organism; I69.354 Hemiplegia and hemiparesis following cerebral infarction affecting left non-dominant side; E87.20 Acidosis, unspecified; N39.0 Urinary tract infection, site not specified; M62.82 Rhabdomyolysis; R44.3 Hallucinations, unspecified; I10 Essential (primary) hypertension; E78.5 Hyperlipidemia, unspecified; N40.0 Benign prostatic hyperplasia without lower urinary tract symptoms; M19.90 Unspecified osteoarthritis, unspecified site; F32.A Depression, unspecified; M48.02 Spinal stenosis, cervical region; G47.00 Insomnia, unspecified; Z74.1 Need for assistance with personal care; W19.XXXA Unspecified fall, initial encounter; Y92.009 Unspecified place in unspecified non-institutional (private) residence as the place of occurrence of the external cause; E04.1 Nontoxic single thyroid nodule; Z79.899 Other long term (current) drug therapy; Z88.5 Allergy status to narcotic agent